=== PATIENT | female | born 1940 | race Caucasian/White ===

== ENCOUNTER 2023-12-30 19:38 | Inpatient (IN) | payer MEDICARE, SELFPAY ==
[2023-12-30] VITALS (10 sets, daily range): BP systolic 95–163; BP diastolic 41–64; BMI 21.3
[2023-12-30 14:20] LABS: % Basophils 0.5 % (0-2); % Eosinophils 0.8 % (0-6); % Immature Granulocytes 0.3 % (0-0.5); % Lymphocytes 19.5 % (20.5-51.1); % Monocytes 6.4 % (1.7-9.3); % Neutrophils 72.5 % (42.2-75.2); Absolute Basophils 0.1 10^3/uL (0-0.2); Absolute Eosinophils 0.1 10^3/uL (0-0.7); Absolute Lymphocytes 2.3 10^3/uL (1.2-3.4); Absolute Monocytes 0.7 10^3/uL (0.1-0.6); Absolute Neutrophils 8.4 10^3/uL (1.4-6.5); Hematocrit 35.1 % (37.0-47.0); Hemoglobin 11.8 g/dL (12.0-16.0); Mean Corp Hgb Conc. 33.6 g/dL (33.0-37.0); Mean Corpuscular Hgb 28.4 pg (27.0-31.0); Mean Corpuscular Volume 84.6 fL (81.0-99.0); Mean Platelet Volume 9.7 fL (7.4-10.4); Nucleated Red Blood Cells % 0 %; Platelet Count 335 10^3/uL (130-400); Red Blood Cell Count 4.15 10^6/uL (4.20-5.40); Red Cell Dist. Width 11.9 % (11.5-14.5); White Blood Cell Count 11.6 10^3/uL (4.8-10.8)
[2023-12-30 14:35] LABS: ALT (SGPT) 26 U/L (0-35); AST (SGOT) 28 U/L (14-36); Albumin 3.9 g/dl (3.5-5.0); Alkaline Phosphatase 119 U/L (38-126); Blood Urea Nitrogen 32 mg/dl (7-17); Calcium 9.1 mg/dl (8.4-10.2); Carbon Dioxide 24 mmol/L (22-30); Chloride 103 mmol/L (98-107); Estimated Creatinine Clearance 24 ml/min; Glucose 148 mg/dl (70-99); Lipase 111 U/L (23-300); Potassium 3.6 mmol/L (3.5-5.1); Sodium 134 mmol/L (135-145); Total Bilirubin 0.5 mg/dl (0.2-1.3); Total Protein 6.9 g/dl (6.3-8.2)
--- NOTE | 2023-12-30 14:44 | ED.GENMED ---
History of Present Illness
<Esther Mohr PA-C - Last Filed: 12/31/23 10:49>
General
Chief Complaint: Abdominal Symptoms
Source: patient
Exam Limitations: none
Time Seen by Provider: 12/30/23 14:42
Nursing documentation reviewed up to this point in time: agreed with
Travel History
Have you had any contact with someone who has COVID-19?: No
Do you have any symptoms of coronavirus? Fever > 100 degrees, chills, cough, shortness of breath, sore throat, loss of taste or smell, muscle aches, or headache?: No
History of Present Illness
History of Present Illness:
This is a 83-year-old female with past medical history of hypertension, hyperlipidemia presenting the emergency department today with nausea, vomiting, and diarrhea for the past 2 weeks. Stepdaughter and present in room who provided much of
the history. They state that she has been having the symptoms recently and also complaining of mild abdominal discomfort. She also has had coughing and upper respiratory symptoms. Patient went to urgent care last week where they noticed a mass on
the right side on the chest x-ray and advised patient to follow-up with a cloud automation tester. They discharged her with supportive care. Patient's daughter states that they did not go to follow-up on the x-ray because patient became more sick, and
today, she had so much vomiting that she felt so weak and they had to call the ambulance. Patient's daughter states that she also has been complaining of dizziness for the past few days, but she is had apparent issues with dizziness in the past.
Patient states that in the ambulance, she became super lethargic and since the ride over here, and she has not been very arousable. ER records report that patient was given 1 mg of Ativan and 4 mg of Zofran in the ambulance. Patient herself states
that she feels sick and has had nausea and vomiting but denies any belly pain at this time. Family denies fevers or chills.
Review of Systems
<Esther Mohr PA-C - Last Filed: 12/31/23 10:49>
Review of Systems
All Other Systems: ROS reviewed and negative except as documented in HPI and ROS
Phy Exam
<Esther Mohr PA-C - Last Filed: 12/31/23 10:49>
Physical Exam
Physical Exam:
Vitals: vital signs are stable
General: patient is lethargic, ill appearing
Skin: warm and dry, no rashes or lesions
Cardiac: regular rate and rhythm, no murmurs
Pulm: normal respiratory effort, no wheezes/rales/rhonchi
Abdomen: mild diffuse lower abdominal pain to palpation, no abdominal distension
Neuro: Patient difficult to arouse, when not speaking to patient, she falls fast asleep. Patient is oriented to person and place, cranial nerves are intact.
Course
<Esther Mohr PA-C - Last Filed: 12/31/23 10:49>
Orders/Labs/Results
Orders:
Orders
12/30/23 14:08
Electrocardiogram (*1) Urgent
Reason for Study: Vertigo / Dizzy
12/30/23 14:09
EKG- Treatment ONCE
12/30/23 14:12
Complete Blood Count/With Diff Urgent
Comprehensive Metabolic Panel Urgent
Lipase Urgent
12/30/23 Dinner
Regular
At Your Request: Full Participation
Does patient need a safe tray?: No
12/30/23 15:01
Add On- LAB Urgent
Tests Added?: lactic acid
12/30/23 15:02
Abdomen/Pelvis wo Contrast CT [CT Abd/pelvis Wo Iv Cont] Urgent
Comment:
Reason For Exam: nausea/vomiting, diffuse lower ab pain
12/30/23 15:04
Urinalysis Reflex To Culture Urgent
Date Specimen was Collected: 12/31/23
Time Specimen was Collected: 06:48
CR Chest - 2 Views Urgent
Comment:
Reason For Exam: cough, lethargy
12/30/23 15:06
CT Head W/o Iv Contrast Urgent
Comment:
Reason For Exam: altered mental status
12/30/23 16:54
Lactic Acid Urgent
Comment: COLLECT
12/30/23 18:38
Admit/Transfer Patient As Directed
Co-Sign Provider:
Level of Care: Inpatient admission
Assign to:: Medical/Surgical
Physician / Group: carlos
Diagnosis: viral gastroenteritis
Reason for Hospitalization: viral gastroenteritis
Expected length of stay greater than two midnights?: Yes
ELOS- Estimated Length of Stay in days: 2
I certify the patient meets the requirements for IP care: Yes
12/30/23 18:39
Code Status As Directed
Resuscitation Status: Full Code
12/30/23 18:40
CDIFF [C difficile Antigen & Toxins] Urgent
JENNIFER Source: Feces/Stool
Specimen Description:
Norovirus by PCR Urgent
JENNIFER Source: Feces/Stool
Specimen Description:
Stool Culture Urgent
JENNIFER Source: Feces/Stool
Specimen Description:
12/30/23 22:09
0.9% Sodium Chloride 1000 ml [Nss] 1,000 ml IV 100 mls/hr
Heparin 5,000 units SC Q12
Meclizine [Antivert] 25 mg PO Q8HPRN PRN
Ondansetron Injectable [Zofran] 4 mg IV Q6HPRN PRN
12/30/23 22:09
Activity As Directed
Activity Level: As Tolerated
Vital Signs As Directed
Frequency: Per unit guidelines
DX Deep Vein Thrombosis Video Routine
12/31/23 04:24
Complete Blood Count/With Diff IN AM
Comprehensive Metabolic Panel IN AM
12/31/23 08:00
Pantoprazole [Protonix] 40 mg PO DAILY
Rosuvastatin Calcium [Crestor] 10 mg PO DAILY
Abnormal Lab Results
12/30/23
14:12
WBC 11.6 H 10^3/uL
(4.8-10.8)
RBC 4.15 L 10^6/uL
(4.20-5.40)
Hgb 11.8 L g/dL
(12.0-16.0)
Hct 35.1 L %
(37.0-47.0)
Absolute Neuts (auto) 8.4 H 10^3/uL
(1.4-6.5)
Absolute Monos (auto) 0.7 H 10^3/uL
(0.1-0.6)
Lymphocytes % 19.5 L %
(20.5-51.1)
Sodium 134 L mmol/L
(135-145)
BUN 32 H mg/dl
(7-17)
Creatinine 1.4 H mg/dL
(0.6-1.0)
Glucose 148 H mg/dl
(70-99)
12/30/23 14:12
12/30/23 14:12
Vital Signs
Initial and Last Documented VS:
Initial Vital Signs
Temp Pulse Resp BP Pulse Ox
97.6 F 65 18 163/45 97
12/30/23 14:05 12/30/23 14:05 12/30/23 14:05 12/30/23 14:05 12/30/23 14:05
Last Documented Vital Signs
Temp Pulse Resp BP Pulse Ox
98.1 F 61 14 153/55 97
12/31/23 07:50 12/31/23 07:50 12/31/23 07:50 12/31/23 07:50 12/31/23 07:50
<Anibal Banuelos, DO - Last Filed: 12/30/23 18:00>
Orders/Labs/Results
Orders:
Orders
12/30/23 14:08
Electrocardiogram (*1) Urgent
Reason for Study: Vertigo / Dizzy
12/30/23 14:09
EKG- Treatment ONCE
12/30/23 14:12
Complete Blood Count/With Diff Urgent
Comprehensive Metabolic Panel Urgent
Lipase Urgent
12/30/23 Dinner
Regular
At Your Request: Full Participation
Does patient need a safe tray?: No
12/30/23 15:01
Add On- LAB Urgent
Tests Added?: lactic acid
12/30/23 15:02
Abdomen/Pelvis wo Contrast CT [CT Abd/pelvis Wo Iv Cont] Urgent
Comment:
Reason For Exam: nausea/vomiting, diffuse lower ab pain
12/30/23 15:04
Urinalysis Reflex To Culture Urgent
Date Specimen was Collected: 12/31/23
Time Specimen was Collected: 06:48
CR Chest - 2 Views Urgent
Comment:
Reason For Exam: cough, lethargy
12/30/23 15:06
CT Head W/o Iv Contrast Urgent
Comment:
Reason For Exam: altered mental status
12/30/23 16:54
Lactic Acid Urgent
Comment: COLLECT
12/30/23 18:38
Admit/Transfer Patient As Directed
Co-Sign Provider:
Level of Care: Inpatient admission
Assign to:: Medical/Surgical
Physician / Group: carlos
Diagnosis: viral gastroenteritis
Reason for Hospitalization: viral gastroenteritis
Expected length of stay greater than two midnights?: Yes
ELOS- Estimated Length of Stay in days: 2
I certify the patient meets the requirements for IP care: Yes
12/30/23 18:39
Code Status As Directed
Resuscitation Status: Full Code
12/30/23 18:40
CDIFF [C difficile Antigen & Toxins] Urgent
JENNIFER Source: Feces/Stool
Specimen Description:
Norovirus by PCR Urgent
JENNIFER Source: Feces/Stool
Specimen Description:
Stool Culture Urgent
JENNIFER Source: Feces/Stool
Specimen Description:
12/30/23 22:09
0.9% Sodium Chloride 1000 ml [Nss] 1,000 ml IV 100 mls/hr
Heparin 5,000 units SC Q12
Meclizine [Antivert] 25 mg PO Q8HPRN PRN
Ondansetron Injectable [Zofran] 4 mg IV Q6HPRN PRN
12/30/23 22:09
Activity As Directed
Activity Level: As Tolerated
Vital Signs As Directed
Frequency: Per unit guidelines
DX Deep Vein Thrombosis Video Routine
12/31/23 04:24
Complete Blood Count/With Diff IN AM
Comprehensive Metabolic Panel IN AM
12/31/23 08:00
Pantoprazole [Protonix] 40 mg PO DAILY
Rosuvastatin Calcium [Crestor] 10 mg PO DAILY
Abnormal Lab Results
12/30/23
14:12
WBC 11.6 H 10^3/uL
(4.8-10.8)
RBC 4.15 L 10^6/uL
(4.20-5.40)
Hgb 11.8 L g/dL
(12.0-16.0)
Hct 35.1 L %
(37.0-47.0)
Absolute Neuts (auto) 8.4 H 10^3/uL
(1.4-6.5)
Absolute Monos (auto) 0.7 H 10^3/uL
(0.1-0.6)
Lymphocytes % 19.5 L %
(20.5-51.1)
Sodium 134 L mmol/L
(135-145)
BUN 32 H mg/dl
(7-17)
Creatinine 1.4 H mg/dL
(0.6-1.0)
Glucose 148 H mg/dl
(70-99)
12/30/23 14:12
12/30/23 14:12
Vital Signs
Initial and Last Documented VS:
Initial Vital Signs
Temp Pulse Resp BP Pulse Ox
97.6 F 65 18 163/45 97
12/30/23 14:05 12/30/23 14:05 12/30/23 14:05 12/30/23 14:05 12/30/23 14:05
Last Documented Vital Signs
Temp Pulse Resp BP Pulse Ox
98.1 F 61 14 153/55 97
12/31/23 07:50 12/31/23 07:50 12/31/23 07:50 12/31/23 07:50 12/31/23 07:50
<Esther Mohr PA-C - Last Filed: 12/31/23 10:49>
MDM/Problems Addressed
Differential Diagnosis Includes:
ddx include gastroenteritis, diverticulitis, small bowel obstruction, pneumonia, peripheral vertigo
MDM/Problems Addressed:
dizziness
nausea/vomiting
diarrhea
Chronic conditions affecting care: HTN
Acute Exacerbation and/or Progression of Chronic Illness: HTN
<Esther Mohr PA-C - Last Filed: 12/31/23 10:49>
*Pulse Oximetry
Patient hypoxic: no
*Critical Care Note
Total Time (30-74mins, 75-104mins- exclusive of procedures): Not Applicable
Data Reviewed
Review of Other/Old Records Reveals: Records (No previous records in [facility] to review)
Source: patient
<Esther Mohr PA-C - Last Filed: 12/31/23 10:49>
Patient Management
Escalation/DeEscalation of care consider admission/obs:
83-year-old female with a past medical history of hypertension, hyperlipidemia presenting emergency department today with nausea, vomiting, and diarrhea for the past 2 weeks. Stepdaughter and present in room who provided much of the
history. They state that she has been having the symptoms recently and also complaining of mild abdominal discomfort. She also has had coughing and upper respiratory symptoms. On exam, she is oriented to person and place but she is extremely
lethargic and does not answer many questions, and quickly falls asleep when not discussing for. She also has diffuse mild abdominal tenderness palpation. She has no adventitious lung sounds, she is not in respiratory distress. Her CT scan of the
abdomen showed moderate diverticulosis but no diverticulitis this is well as a dilated common bile duct, however her LFTs and bilirubin within normal limits. On CBC, she has no leukocytosis. EMS did give her 1 mg of Ativan which is likely why she
was altered. This time, we nothing explain her persistent nausea and vomiting. Will admit her for further workup and management.
ED Attending Note
<Esther Mohr PA-C - Last Filed: 12/31/23 10:49>
-
Portions of this chart may have been created with voice recognition software.� Occasional wrong word or��sound alike� substitutions may have occurred due to the inherent limitations of voice recognition software.
<Anibal Banuelos DO - Last Filed: 12/30/23 18:00>
ED Attending Note
Patient seen and examined by attending physician: Yes
I performed a history and physical exam of patient and discussed management with resident, I reviewed resident's note and agree with documented findings and plan of care.: Yes
ED Attending Note:
I have reviewed and agree with patient treatment plan by Esther Mohr. My exam revealed 83-year-old female, drowsy, but alert and oriented. Mild lower abdominal tenderness, no rebound or guarding. Patient's lethargy likely from dehydration, as
well as Ativan given. Unclear cause of dizziness. Will admit to further evaluate acute kidney injury, dizziness.
Discharge Plan
Departure
Patient Disposition: Admit
Date of Disposition: 12/30/23
Time of Disposition: 18:09
Admit to: Med/Surg
Presentation/result/management discussed w/ accepting MD/DO: Hospitalist
Patient with high blood pressure during this ER visit?: Yes
Condition: Fair
Discharge Problem:
Altered mental status, Dizziness, MINH (acute kidney injury)
Interventions
Interventions:
*Risk Screen - Suicide Last Done: 12/30/23 14:09
*General Assessment Last Done: 12/30/23 14:09
*Neglect/Abuse Screening Last Done: 12/30/23 14:09
ED- Fall Risk Assessment Last Done: 12/30/23 22:05
*ED COVID-19 Vaccine History Last Done: 12/30/23 14:10
*Nursing Disposition Last Done: 12/30/23 22:05
VD-Clsmzi-Imgrtzncym Assessment Last Done: 12/30/23 14:09
Discharge Date and Time
Discharge Date/Time: 12/30/23 22:05
[2023-12-30 17:10] LABS: Lactic Acid 1.2 mmol/L (0.7-2.0)
--- NOTE | 2023-12-30 18:23 | PHANOTE ---
Addendum entered by Melissa Hernández 12/30/23 19:46:
Provider advised family to bring patients med bottles in. Looked through medication bottles and added source to home med list.
Original Note:
Med Rec Note:
Family states they do not know pt's medications at all bu 'EMS took a picture, and said the hospital will get that information'. Advised pt that we did not get that photo.
Home med list compiled from EMS face sheet, Dr Ware and [facility].
--- NOTE | 2023-12-30 18:41 | HPS.HSE ---
Family Physician
-
Family Physician: Chente Saeed
Chief Complaint
-
diarrhea and vomiting
History of Present Illness
83-year-old female with past medical history hypertension, hyperlipidemia, GERD, former alcohol use disorder presented to the emergency room with nausea and vomiting and diarrhea and abdominal discomfort for the past week. She also had dry cough
for the past week without shortness of breath or fevers or chills. She was started on antibiotic for URI. Stepdajavier providing history. She went to urgent care last week and they noted a mass in the right side of the chest x-ray advised patient
to follow-up with keg filler. Patient became more sick and today she is so much vomiting she felt weak and they had to call the ambulance. Patient has been having dizziness for the past few days. Patient became super lethargic and since she
has been less arousable after being given Ativan and Zofran in the ambulance for nausea.
She has been feeling very fatigued for the past month.
Medical History
Past Medical History
Past Medical History: Reports Other (hypertension, hyperlipidemia, GERD)
Past Surgical History: Reports None
Social History
Tobacco: Non-smoker
Alcohol: Former
Drug: None
Family History
Family History: Not pertinent
Allergies / Home Medications
Allergies reflects when Allergies were last updated in [employer].
Home Medications with original date entered in [employer]
Allergy/Medication List:
Home Medications
amlodipine 10 mg tablet 10 mg PO DAILY 12/30/23
bisoprolol fumarate 10 mg tablet 10 mg PO DAILY 12/30/23
losartan 50 mg-hydrochlorothiazide 12.5 mg tablet 1 tab PO DAILY 12/30/23
meclizine 25 mg tablet 25 mg PO Q8H PRN dizziness 12/30/23
omeprazole 40 mg capsule,delayed release 40 mg PO DAILY 12/30/23
rosuvastatin 20 mg tablet 20 mg PO DAILY 12/30/23
trazodone 100 mg tablet 100 mg PO HS sleep 12/30/23
Review of Systems
-
History Source: Patient
A 12 point ROS was completed and negative except as noted: Yes
Constitutional: Reports No Symptoms
EENT: Reports No Symptoms
Respiratory: Reports See HPI
Cardiac: Reports No Symptoms
Abdomen/GI: Reports See HPI
: Reports No Symptoms
Musculoskeletal: Reports No Symptoms
Skin: Reports No Symptoms
Neurological: Reports No Symptoms
Endocrine: Reports No Symptoms
Hematologic/Lymphatic: Reports No Symptoms
Psych: Reports No Symptoms
Physical Exam
Vital Signs
Vital Signs
Temp Pulse Resp BP Pulse Ox
97.6 F 54 12 110/47 95
12/30/23 14:05 12/30/23 17:45 12/30/23 17:45 12/30/23 17:00 12/30/23 17:30
Physical Exam
General: Well Developed, Well Nourished and No Apparent Distress
HEENT: NormoCephalic, Moist mucous membranes and Atraumatic
Respiratory: Clear
Cardiac: S1/S2 and Regular Rhythm; No Murmur or Rub
GI: Soft, Non Tender, Non Distended and Normal Bowel Sounds; No Organomegaly
Rectal: Deferred by Provider
Musculoskeletal: No Clubbing, No Cyanosis and No Edema
Skin: No Rash
Neuro: Nonfocal/grossly intact and Sedated
Laboratory Results
-
12/30/23 14:12
12/30/23 14:12
Laboratory Results
Lactic Acid 1.2 mmol/L (0.7-2.0) 12/30/23 16:54
Total Bilirubin 0.5 mg/dl (0.2-1.3) 12/30/23 14:12
AST 28 U/L (14-36) 12/30/23 14:12
ALT 26 U/L (0-35) 12/30/23 14:12
Alkaline Phosphatase 119 U/L (38-126) 12/30/23 14:12
Lipase 111 U/L (23-300) 12/30/23 14:12
Data Reviewed
-
Lab Data: Labs Reviewed by me
Old Records: Reviewed
Impression/Plan
-
IMPRESSION:
PLAN:
# Vomiting/diarrhea and cough suggestive of viral syndrome with gastroenteritis
-Leukocytosis
-Patient sleeping due to Ativan given in ambulance although was mentally alert prior
-CT abdomen pelvis shows large common bile duct without any other pathology
-CT head shows left postop preseptal masses versus enlarged extraocular muscles which can be seen in lymphoma/Graves' respectively
-Chest x-ray negative
-Check stool culture, norovirus, C. difficile
-IV fluids
-Hold amlodipine, losartan/hydrochlorothiazide, bisoprolol due to blood pressure 90s at time
-Hold trazodone and sedating medication given mental status
# Acute kidney injury
-Monitor with IV fluids
# Left posterior preseptal masses/enlarged extraocular muscles
-Suggestive of lymphoma/Graves' respectively
-Eventual MRI of orbits to better evaluate
# Supposed lung mass seen on recent urgent care chest x-ray
-Not visible on chest x-ray here
-Can follow-up with pulmonology
Essential hypertension
-Hold amlodipine, losartan/hydrochlorothiazide, bisoprolol due to blood pressure 90s at time
Hyperlipidemia
-Continue statin
GERD
-Continue omeprazole
Full code
DVT prophylaxis�heparin
Regular diet
[2023-12-30] MEDS: NSS 1000 IV (22:58)
[2023-12-30] MEDS: HEPARIN 5000 UNITS SC (22:58)
[2023-12-31 04:57] LABS: % Basophils 0.6 % (0-2); % Eosinophils 0.5 % (0-6); % Immature Granulocytes 0.3 % (0-0.5); % Lymphocytes 16.9 % (20.5-51.1); % Monocytes 5.8 % (1.7-9.3); % Neutrophils 75.9 % (42.2-75.2); Absolute Basophils 0.1 10^3/uL (0-0.2); Absolute Eosinophils 0.1 10^3/uL (0-0.7); Absolute Lymphocytes 1.8 10^3/uL (1.2-3.4); Absolute Monocytes 0.6 10^3/uL (0.1-0.6); Absolute Neutrophils 7.9 10^3/uL (1.4-6.5); Hematocrit 31.6 % (37.0-47.0); Hemoglobin 10.6 g/dL (12.0-16.0); Mean Corp Hgb Conc. 33.5 g/dL (33.0-37.0); Mean Corpuscular Hgb 28.1 pg (27.0-31.0); Mean Corpuscular Volume 83.8 fL (81.0-99.0); Mean Platelet Volume 9.8 fL (7.4-10.4); Nucleated Red Blood Cells % 0 %; Platelet Count 288 10^3/uL (130-400); Red Blood Cell Count 3.77 10^6/uL (4.20-5.40); Red Cell Dist. Width 12.1 % (11.5-14.5); White Blood Cell Count 10.4 10^3/uL (4.8-10.8)
[2023-12-31 05:18] VITALS: BMI 21.3
[2023-12-31 05:21] LABS: ALT (SGPT) 19 U/L (0-35); AST (SGOT) 21 U/L (14-36); Albumin 3.1 g/dl (3.5-5.0); Alkaline Phosphatase 94 U/L (38-126); Blood Urea Nitrogen 30 mg/dl (7-17); Calcium 9.1 mg/dl (8.4-10.2); Carbon Dioxide 25 mmol/L (22-30); Chloride 103 mmol/L (98-107); Estimated Creatinine Clearance 24 ml/min; Glucose 76 mg/dl (70-99); Potassium 3.9 mmol/L (3.5-5.1); Sodium 136 mmol/L (135-145); Total Bilirubin 0.5 mg/dl (0.2-1.3); Total Protein 6.1 g/dl (6.3-8.2)
[2023-12-31 07:32] LABS: Urine Albumin Trace (Neg - Trace); Urine Bilirubin Negative (Negative); Urine Character Clear (Clear); Urine Color Yellow; Urine Glucose Negative (Negative); Urine Ketone Trace (Negative); Urine Leukocyte Negative (Negative); Urine Nitrite Negative (Negative); Urine Occult Blood Negative (Negative); Urine Urobilinogen Negative (Neg - 1+)
[2023-12-31 07:50] VITALS: BP 153/55
--- NOTE | 2023-12-31 08:13 | W.PN.HOSP.TC ---
Today's Communication/Plan
-
Discharge today
Assessment / Plan
Assessment / Plan
HPI: 83-year-old female with past medical history hypertension, hyperlipidemia, GERD, former alcohol use disorder presented to the emergency room with nausea and vomiting and diarrhea and abdominal discomfort for the past week.� She also had dry
cough for the past week without shortness of breath or fevers or chills.� She was started on antibiotic for URI.� Stepdaughter providing history.� She went to urgent care last week and they noted a mass in the right side of the chest x-ray advised
patient to follow-up with hand touch up painter.� Patient became more sick and today she is so much vomiting she felt weak and they had to call the ambulance.� Patient has been having dizziness for the past few days.� Patient became super lethargic and
since she has been less arousable after being given Ativan and Zofran in the ambulance for nausea.
# Vomiting/diarrhea and cough suggestive of viral syndrome with gastroenteritis
CT abdomen pelvis shows large common bile duct without any other pathology
CT head shows left postop preseptal masses versus enlarged extraocular muscles which can be seen in lymphoma/Graves' respectively
Chest x-ray negative
Stool studies ordered, unable to send as she has not have any more bowel movement since admission
Vomiting and diarrhea resolved, she is tolerating her diet
Medically stable for discharge today, follow-up with PCP in 1 week
# URI
Supportive care
# Chronic kidney disease
Patient reports that she was told she has chronic kidney disease
Creatinine 1.4 today, unchanged from admission 1.4, despite IV fluids
I suspect this is her baseline
Recommend she avoid all [id number]-[id number] NSAIDs
# Left posterior preseptal masses/enlarged extraocular muscles
-Suggestive of lymphoma/Graves' respectively
-Informed patient and family that outpatient orbit MRI is recommended
# Supposed lung mass seen on recent urgent care chest x-ray
Not visible on chest x-ray here
#Essential hypertension
Blood pressure improved, okay to resume amlodipine and bisoprolol upon discharge
Recommend permanently discontinue losartan/hydrochlorothiazide
Hyperlipidemia
-Continue statin
GERD
-Continue omeprazole
Full code
DVT prophylaxis�SQ heparin
Regular diet
Physical Exam
General: No acute distress
HEENT: Normocephalic, Atraumatic, EOMI, MMM
Respiratory: Clear to Auscultation bilaterally
Cardiac: Normal S1/S2, Regular Rate and Rhythm
GI: Soft, Nontender, Nondistended, Normal Bowel Sounds
Extremities: No Clubbing, Cyanosis, or Edema
Neuro: Nonfocal/Grossly Intact
Psych: Calm, Cooperative
Derm: No Visible lesions
Anticipated Discharge: Today
Subjective/Interval History
-
Date of Service: December 31, 2023
Vomiting and diarrhea resolved. She is tolerating solids. She does complain of URI symptoms. No fever.
Objective Data
-
Labs:
Laboratory Results
12/31/23
04:24
WBC 10.4
Hgb 10.6 L
Hct 31.6 L
Plt Count 288
Sodium 136
Potassium 3.9
Chloride 103
Carbon Dioxide 25
BUN 30 H
Creatinine 1.4 H
Glucose 76
Calcium 9.1
Total Bilirubin 0.5
AST 21
ALT 19
Alkaline Phosphatase 94
Vital Signs:
Vital Signs
Temp Pulse Resp BP Pulse Ox
98.1 F 61 14 153/55 97
12/31/23 07:50 12/31/23 07:50 12/31/23 07:50 12/31/23 07:50 12/31/23 07:50
I&O
12/30/23 12/31/23 01/01/24
06:59 06:59 06:59
Intake Total 480 / 480
Balance 480 / 480
[2023-12-31] MEDS: PROTONIX 40 MG PO (08:23)
[2023-12-31] MEDS: HEPARIN 5000 UNITS SC (08:23)
[2023-12-31] MEDS: CRESTOR 10 MG PO (08:23)
[2023-12-31] MEDS: NSS 1000 IV (08:24)
--- NOTE | 2023-12-31 11:07 | CM ---
Chart reviewed. CM spoke with pt at bedside
Pt lives with her in an apartment with elevator access
Recently moved to area from [facility]
Independent, shops, cooks, driving
Denies DME and past HH/SNF - has received out pt PT in past
PCP - Dr Armand Saeed
Pharm - [facility]
Will have ride home at d/c
Plan - anticipate home - no needs
--- NOTE | 2023-12-31 16:58 | W.DCSUMMARY ---
Discharge Summary
Discharge Data
Date of Admission: 12/30/23
Date of Discharge: 12/31/23
-
Pending Results: No
Hospital Course
Discharge diagnosis:
Vomiting/diarrhea/cough suggestive of viral syndrome or gastroenteritis
Probable stage 4 chronic kidney disease
Left posterior preseptal masses/enlarged extraocular muscles seen on imaging
Recent abnormality seen at urgent care x-ray
Essential hypertension
Hyperlipidemia
Gastroesophageal reflux disease
CT abdomen and pelvis:
Large common bile duct. This can be within normal limits postcholecystectomy. Other etiologies such as a stone or stricture cannot be excluded. This would better be evaluated by MRCP examination if indicated clinically.
Tiny pericardial effusion versus pericardial thickening.
Prior cholecystectomy.
Severe diverticulosis. No evidence of acute diverticulitis.
Moderate residual oral contrast in the colon.
Severe atherosclerotic vascular disease.
Chest x-ray:
Frontal and lateral radiographs of the chest were obtained.
The cardiac silhouette and pulmonary vasculature are radiographically within normal limits.
There are no acute mediastinal abnormalities.
There are no acute pleural or parenchymal abnormalities.
Head CT:
No acute intracranial abnormality noted.
Left postseptal masses versus enlarged extraocular muscles as described above. These findings can be seen with lymphoma and Graves' disease respectively. This could further be evaluated by MR examination of the orbits if indicated clinically
Hospital course:
83-year-old female with past medical history hypertension, hyperlipidemia, GERD, and former alcohol use disorder presented to the emergency room with nausea, vomiting and diarrhea and abdominal discomfort for the past week.� She also had a dry cough
for the past week without shortness of breath, fevers or chills.� She was started on antibiotic for URI.
Chest x-ray was negative. Suspect she has a viral syndrome causing gastroenteritis as well as upper respiratory symptoms. She received supportive management with IV fluids.
Patient has a creatinine of 1.4. Despite hydration with IV fluids, her creatinine remained 1.4. She reports being told by her PCP that she has chronic kidney disease. I suspect that this may be her baseline.
By the following day, her vomiting and diarrhea resolved. She tolerated a diet. She continues to complain of chest congestion and cough. Recommend that she takes [id number] cough and cold medicine as needed.
Patient was informed that her head CT shows an abnormality, and that outpatient MRI of the orbits is recommended.
Patient was recently told that she had a right lung mass. Repeat chest x-ray here is negative for any acute abnormalities. This was relayed to the patient multiple times.
Patient is medically stable for discharge. She needs to follow-up with her primary care doctor 1 week.
Disposition: Home self-care
Discharge planning: Required 40 minutes
Discharge Plan
-
Patient Disposition: Home (Routine Discharge)
Discharge Diagnosis/Procedures: Gastroenteritis, upper respiratory infection, chronic kidney disease, hypertension
Condition: Good
Diet: Low Residue
Activity: As tolerated
Driving Restrictions: As prior to admission
Activity Restrictions/Additional Instructions:
Please drink plenty of fluids.
We recommend you stopping losartan�hydrochlorothiazide.
Avoid all [id number] NSAID medications, such as ibuprofen, naproxen, Aleve, Advil, Motrin.
These medications will worsen your kidney function.
You had a chest x-ray that was normal.
You had a head CT, which showed no acute intracranial abnormality.
Your head CT does show enlarged extraocular muscles.
We recommend you get an outpatient orbit MRI�this can be done with your primary care doctor.
Please establish care with a primary care doctor, and follow-up in 1 week.
Referrals:
Chente Saeed MD [Family Provider] - in one week
Prescriptions:
Continued
bisoprolol fumarate 10 mg tablet
10 mg PO DAILY
meclizine 25 mg tablet
25 mg PO Q8H PRN (Reason: dizziness)
amlodipine 10 mg tablet
10 mg PO DAILY
rosuvastatin 20 mg tablet
20 mg PO DAILY
trazodone 100 mg tablet
100 mg PO HS
docusate sodium [Colace] 100 mg Capsule
100 mg PO DAILY PRN (Reason: constipation)
Discontinued
losartan-hydrochlorothiazide 50-12.5 mg tablet
1 tab PO DAILY
Discharge Orders:
Discharge Patient (As Directed); Ordered 12/31/23
Ordered By: Shabbir Blake
Discharge Date and Time
Discharge Date/Time: 12/31/23 13:35
== END 2023-12-31 13:35 | disposition home or self-care (01) | DRG 392 ==
LOC: 2 NORTH 19:38
PROVIDERS: Physician Assistant; ADMITTING PHYSICIAN Hospitalist; ATTENDING PHYSICIAN Family Medicine; EMERGENCY PHYSICIAN Emergency Medicine; FAMILY PHYSICIAN Internal Medicine Geriatric Medicine
DX: A08.4 Viral intestinal infection, unspecified (principal); N17.9 Acute kidney failure, unspecified; N18.4 Chronic kidney disease, stage 4 (severe); I12.9 Hypertensive chronic kidney disease with stage 1 through stage 4 chronic kidney disease, or unspecified chronic kidney disease; N18.9 Chronic kidney disease, unspecified; E78.5 Hyperlipidemia, unspecified; K21.9 Gastro-esophageal reflux disease without esophagitis; J06.9 Acute upper respiratory infection, unspecified; K57.90 Diverticulosis of intestine, part unspecified, without perforation or abscess without bleeding
CPT/HCPCS: 70450; 71046; 74176; 80053; 81003; 83605; 83690; 85025; 93005; 99285

== ENCOUNTER → 2024-02-26 14:33 | Outpatient (REF) | payer MEDICARE, OTHER, SELFPAY ==
[2024-02-26 15:49] LABS: ALT (SGPT) 15 U/L (0-35); AST (SGOT) 26 U/L (14-36); Albumin 4.5 g/dl (3.5-5.0); Alkaline Phosphatase 96 U/L (38-126); Blood Urea Nitrogen 32 mg/dl (7-17); Calcium 10.1 mg/dl (8.4-10.2); Carbon Dioxide 28 mmol/L (22-30); Chloride 102 mmol/L (98-107); Glucose 105 mg/dl (70-99); Phosphorus 4.6 mg/dl (2.5-4.5); Potassium 4.5 mmol/L (3.5-5.1); Total Bilirubin 0.5 mg/dl (0.2-1.3); Total Protein 7.7 g/dl (6.3-8.2)
[2024-02-26 15:55] LABS: Sodium 137 mmol/L (135-145)
== END ==
LOC: REG 14:33
PROVIDERS: ATTENDING PHYSICIAN Nurse Practitioner Family
DX: I10 Essential (primary) hypertension (principal); N18.32 Chronic kidney disease, stage 3b; E78.2 Mixed hyperlipidemia
CPT/HCPCS: 36415; 80053; 80069

== ENCOUNTER → 2024-07-23 12:52 | Outpatient (REF) | payer MEDICARE, OTHER, SELFPAY | LOC: RAD 12:52 | PROVIDERS: ATTENDING PHYSICIAN Internal Medicine Geriatric Medicine | DX: E78.2 Mixed hyperlipidemia (principal); I10 Essential (primary) hypertension; K21.9 Gastro-esophageal reflux disease without esophagitis; R91.8 Other nonspecific abnormal finding of lung field; M85.80 Other specified disorders of bone density and structure, unspecified site; N18.9 Chronic kidney disease, unspecified; J06.9 Acute upper respiratory infection, unspecified; R01.1 Cardiac murmur, unspecified | CPT/HCPCS: 93880 ==

== ENCOUNTER → 2024-10-29 11:44 | Outpatient (REF) | payer MEDICARE, OTHER, SELFPAY | LOC: MRI 11:44 | PROVIDERS: ATTENDING PHYSICIAN Nurse Practitioner Primary Care | DX: H05.822 Myopathy of extraocular muscles, left orbit (principal); R42 Dizziness and giddiness | CPT/HCPCS: 70543; 70553; A9575 ==

== ENCOUNTER → 2024-12-01 13:13 | Outpatient (REF) | payer MEDICARE, OTHER, SELFPAY | LOC: RAD 13:13 | PROVIDERS: ATTENDING PHYSICIAN Nurse Practitioner Primary Care; FAMILY PHYSICIAN Internal Medicine Geriatric Medicine | DX: N18.32 Chronic kidney disease, stage 3b (principal) | CPT/HCPCS: 76775 ==

== ENCOUNTER 2025-07-15 22:30 | Inpatient (IN) | payer MEDICARE, OTHER, SELFPAY ==
[2025-07-15 19:19] VITALS: BP 159/62
[2025-07-15 19:44] LABS: Hematocrit 41.9 % (37.0-47.0); Hemoglobin 14.0 g/dL (12.0-16.0); Mean Corp Hgb Conc. 33.4 g/dL (33.0-37.0); Mean Corpuscular Volume 85.3 fL (81.0-99.0); Nucleated Red Blood Cells % 0 %; Platelet Count 233 10^3/uL (130-400); Red Cell Dist. Width 12.4 % (11.5-14.5)
[2025-07-15 19:58] LABS: ALT (SGPT) 17 U/L (0-35); AST (SGOT) 25 U/L (14-36); Albumin 4.6 g/dl (3.5-5.0); Alkaline Phosphatase 96 U/L (38-126); Blood Urea Nitrogen 26 mg/dl (7-17); Calcium 9.7 mg/dl (8.4-10.2); Carbon Dioxide 26 mmol/L (22-30); Chloride 100 mmol/L (98-107); Glucose 142 mg/dl (70-99); Potassium 4.2 mmol/L (3.5-5.1); Sodium 134 mmol/L (135-145); Total Protein 7.5 g/dl (6.3-8.2); eGFR 40.80
[2025-07-15 20:03] LABS: COVID-19 Antigen Negative (Negative)
[2025-07-15 21:02] VITALS: BMI 23.2
--- NOTE | 2025-07-15 21:31 | ED.GENMED ---
History of Present Illness
General
Chief Complaint: Fever
Source: patient
Time Seen by Provider: 07/15/25 20:40
History of Present Illness
History of Present Illness:
85-year-old female presenting to the ER for evaluation of fatigue, fevers, chills and rigors over the last few days, today symptoms worsen accompanied with a mild nonproductive cough. Patient states no known sick contacts, recent travel or recent
antibiotics. She did not take anything for her symptoms prior to arrival. She denies any urinary symptoms, abdominal pain, chest pain, shortness of breath, nausea or vomiting. Social history noncontributory. No other concerns at present.
Patient did note to me when I entered the room that she was feeling much better and wished to go home. Upon telling her her lab results from triage she was amenable to further workup.
Past History
Past History
ED Past Medical History: HTN and Hypercholesterolemia
ED Past Surgical History: Appendectomy and Tonsilectomy
Social History
Tobacco: Non-smoker
Alcohol: None
Drug: None
Personal:
Living: with family
Review of Systems
Review of Systems
All Other Systems: ROS reviewed and negative except as documented in HPI and ROS
Phy Exam
Physical Exam
Physical Exam:
GENERAL: Alert , in no apparent distress
HEAD: Normocephalic atraumatic
EYE: conjunctiva clear
NECK: Supple
ENT: o/p clr, mmm.
CARDIAC: Regular rate and rhythm, faint systolic murmur noted at the left sternal border which patient states she was told about recently
LUNGS: Clear breath sounds bilaterally, no acute respiratory distress, no wheezes/rales/rhonchi
NEUROLOGICAL: Alert and oriented
SKIN: Hot to the touch and dry, skin intact.
MUSCULOSKELETAL: well perfused.
PSYCH: Normal and appropriate interaction.
Scores
Heart Failure Risk
Heart Failure Risk Score: Not Applicable
Heart Score for Chest Pain Patients
STEMI patient?: Not applicable
Withdrawal Assessment of Alcohol
Withdrawal Assessment Completed?: Not applicable
Course
Orders/Labs/Results
Orders:
Orders
07/15/25 19:34
COVID-19 Antigen Urgent
Source: Nasal Swab
Complete Blood Count/With Diff Urgent
Comprehensive Metabolic Panel Urgent
Lactic Acid Q4H
Comment: ON ICE, CANCEL 2ND ORDER IF FIRST LACTIC ACID LEVEL <2
Blood Culture Q20M
JENNIFER Source: Blood/Venous
Specimen Description:
Comment: Urgent from separate sites. If patient screens positive for possible sepsis
07/15/25 20:45
CR Chest - 2 Views Urgent
Comment:
Reason For Exam: fever
07/15/25 20:58
Urinalysis Reflex To Culture Urgent
Date Specimen was Collected: 07/15/25
Time Specimen was Collected: 20:57
Urine Microscopic Reflex Cult Urgent
Urine Culture Urgent
JENNIFER Source: U
Specimen Description:
Date Specimen was Collected: 07/15/25
Time Specimen was Collected: 20:57
07/15/25 21:44
0.9% Sodium Chloride 1000 ml [Nss] 1,800 ml IV NOW STA
Cefepime HCl [Maxipime] 1,000 mg IV NOW STA
07/15/25 21:54
Lactic Acid Q4H
Comment: ON ICE, CANCEL 2ND ORDER IF FIRST LACTIC ACID LEVEL <2
Blood Culture Q20M
JENNIFER Source: Blood/Venous
Specimen Description:
Comment: Urgent from separate sites. If patient screens positive for possible sepsis
07/15/25 22:07
Admit/Transfer Patient As Directed
Co-Sign Provider:
Level of Care: Inpatient admission
Assign to:: Medical/Surgical
Physician / Group: tania dickson
Diagnosis: sepsis 2/2 uti,RUL pulm nodule
Reason for Hospitalization: sepsis 2/2 uti,RUL pulm nodule
Expected length of stay greater than two midnights?: Yes
ELOS- Estimated Length of Stay in days: 4
I certify the patient meets the requirements for IP care: Yes
Code Status As Directed
Resuscitation Status: Full Code
07/15/25 22:09
PRN Pain Medication Management As Directed
May give lesser potent ordered pain med per pt: Yes
preference::
Protocol:: Medication orders for pain may be administered in a
manner that supports deferring to patient preference
when the pt is:
- Requesting an ordered lesser potent pain medication.
Least to most potent pain medications are defined
as: acetaminophen < NSAID < tramadol < opioids
(morphine, oxycodone, hydromorphone).
- Requesting a lesser dose of the same medication IF
ORDERED.
- Requesting a less intrusive route of administration
if both routes are prescribed by the provider (PO <
IV).
07/15/25 22:23
CT Abd/pelvis Wo Iv Cont Urgent
Comment:
Reason For Exam: uti sepsis sup pyelo
Abnormal Lab Results
07/15/25 07/15/25
19:34 20:58
WBC 22.1 H 10^3/uL
(4.8-10.8)
Abs Immat Gran (auto) 0.1 H 10^3/uL
(0-0.05)
Absolute Neuts (auto) 19.7 H 10^3/uL
(1.4-6.5)
Absolute Monos (auto) 0.9 H 10^3/uL
(0.1-0.6)
Neutrophils % 89.1 H %
(42.2-75.2)
Lymphocytes % 5.7 L %
(20.5-51.1)
Sodium 134 L mmol/L
(135-145)
BUN 26 H mg/dl
(7-17)
Creatinine 1.3 H mg/dL
(0.6-1.0)
Glucose 142 H mg/dl
(70-99)
Ur Occult Blood Reflex 3+ A
(Negative)
Leukocyte Esterase Rfl 3+ A
(Negative)
Urine RBC 40-50 A /HPF
(0-2)
Urine WBC (Reflex) 60-70 A /HPF
(0-5)
Urine Bacteria (Reflex) Moderate A
(Negative)
Urine Albumin (Reflex) 3+ A
(Neg - Trace)
07/15/25 19:34
07/15/25 19:34
Vital Signs
Initial and Last Documented VS:
Initial Vital Signs
Temp Pulse Resp BP Pulse Ox
101.2 F H 87 18 159/62 97
07/15/25 19:19 07/15/25 19:19 07/15/25 19:19 07/15/25 19:19 07/15/25 19:19
Last Documented Vital Signs
Temp Pulse Resp BP Pulse Ox
101.2 F H 80 19 157/57 97
07/15/25 19:19 07/15/25 22:30 07/15/25 22:30 07/15/25 22:02 07/15/25 22:15
MDM/Problems Addressed
Differential Diagnosis Includes:
COVID/flu or other viral etiology
Pneumonia
Urinary tract infection
Sepsis/bacteremia
No risk factors for endocarditis although patient did have a cardiac murmur noted on exam however this is reportedly known and not new
MDM/Problems Addressed:
85-year-old female presented to the ER with 3 days of fevers and what she describes as chills/rigors. Found to be febrile on arrival at 101.2. Labs initiated on arrival do show a leukocytosis of 22,000 with a leftward shift. Stable mild chronic
kidney disease. Normal lactic acid. Will add on cultures, chest x-ray, urinalysis. Disposition pending
Chronic conditions affecting care: Kidney disease
*Pulse Oximetry
SaO2: 97
Oxygen Mode of Delivery: Room air
Patient hypoxic: no
*Critical Care Note
Total Time (30-74mins, 75-104mins- exclusive of procedures): Not Applicable
Data Reviewed
Review of Other/Old Records Reveals: Labs
Patient Management
Discussion with other providers: Hospitalist
Escalation/DeEscalation of care consider admission/obs:
Patient's urinalysis with 3+ leukocytes and 60-70 WBCs suspicious for urinary tract infection. Given her fever and reports of chills/rigors will plan for admission for IV antibiotics and close monitoring. Hospitalist team is aware and accepts
patient for continued evaluation and treatment.
ED Attending Note
-
Portions of this chart may have been created with voice recognition software.� Occasional wrong word or��sound alike� substitutions may have occurred due to the inherent limitations of voice recognition software.
Discharge Plan
Departure
Patient Disposition: Admit
Date of Disposition: 07/15/25
Time of Disposition: 21:58
Presentation/result/management discussed w/ accepting MD/DO: Hospitalist
Discharge Problem:
Urinary tract infection
Interventions
Interventions:
*Risk Screen - Suicide Last Done: 07/15/25 19:19
*General Assessment Last Done: 07/15/25 21:02
*ED- Fall Risk Assessment Last Done: 07/15/25 21:02
*ED COVID-19 Vaccine History Last Done: 07/15/25 21:02
ED- Neurological Assessment Last Done: 07/15/25 21:02
ED-Skin Assessment Last Done: 07/15/25 21:02
[2025-07-15 21:32] LABS: Urine Character Slightly Cloudy (Clear)
[2025-07-15 21:41] LABS: Urine Red Blood Cell 40-50 /HPF (0-2); Urine Squamous Cell 0-2 /LPF (Few); Urine White Cell 60-70 /HPF (0-5)
[2025-07-15 22:02] VITALS: BP 157/57
[2025-07-15] MEDS: MAXIPIME 1000 MG IV (22:03)
[2025-07-15] MEDS: NSS 1800 ML IV (22:04)
--- NOTE | 2025-07-15 22:22 | HPS.HSE ---
Family Physician
-
Family Physician: Yeny Amaya
Chief Complaint
-
Fever and chills
History of Present Illness
Pleasant 85-year-old female with history of hypertension, dyslipidemia insomnia presented to the hospital complaining of few days of subjective fever, chill, generalized body ache and poor appetite with increased urinary frequency but no dysuria or
urgency, complaining of the flank pain bilaterally.
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
Workup in the ER concerning for sepsis likely secondary to pyelonephritis. Also chest x-ray showed approximate 2.8 cm right upper lobe pulmonary nodule slightly increased in size from prior study.
In the ER given Maxipime
Medical History
Past Medical History
Past Medical History: Reports Other
Additional Past Medical History:
Past medical history:
Hypertension
Polio during childhood
Carotid arthrosclerosis
Dyslipidemia
GERD
Osteopenia
Chronic kidney disease
Surgical history:
Right carotid endarterectomy
Appendectomy
Tonsillectomy
Right knee replacement
Removal of cyst from the liver
Social history:
Ex-smoker no alcohol user, no alcohol or smoking for many many years and denies any drug, she is independent lives at home with her .
Family history: Reviewed and noncontributory
Past Surgical History: Reports Other
Social History
Unable to obtain full social history at this time due to: Other
Family History
Family History: Other
Allergies / Home Medications
Allergies reflects when Allergies were last updated in [facility].
Home Medications with original date entered in [facility]
Allergy/Medication List:
Allergies
Allergy/AdvReac Type Severity Reaction Status Date / Time
No Known Allergies Allergy Verified 07/15/25 19:19
Home Medications
amlodipine 10 mg tablet 10 mg PO DAILY Blood Pressure 12/30/23
bisoprolol fumarate 10 mg tablet 10 mg PO DAILY Blood Pressure 12/30/23
rosuvastatin 20 mg tablet 20 mg PO DAILY High Cholesterol 12/30/23
trazodone 100 mg tablet 100 mg PO HS sleep 12/30/23
Review of Systems
-
A 12 point ROS was completed and negative except as noted: Yes
Physical Exam
Vital Signs
Vital Signs
Temp Pulse Resp BP Pulse Ox
101.2 F H 87 18 159/62 97
07/15/25 19:19 07/15/25 19:19 07/15/25 19:19 07/15/25 19:19 07/15/25 21:36
Physical exam:
General: Awake, alert and oriented x3, not in distress and holds appropriate conversation.
HEENT: No active discharge, ecchymosis or bruising, moist lips, tongue and mucous membrane.
Eyes: No discharge or red conjunctiva, no nystagmus, pupils are reactive and equal
Neck:Supple, no JVD no bruit no goiter.
Respiratory: Normal AP contour and diameter, normal chest wall movement, normal respiratory effort, no respiratory distress,
Lungs: Good air entry bilaterally, no wheezing or rhonchi, no rales or crackles
Heart: S1, S2 regular, normal rate, no added sound.
Gastrointestinal: Positive bowel sounds, soft, nontender, no guarding or rigidity or organomegaly
Musculoskeletal: , no chest wall abnormality or tenderness. All joints and extremities have good range of motion, no muscle tenderness or any joint swelling or tenderness.
Extremities: No pitting edema, good peripheral pulses, good range of motion
Skin: Warm and dry, no ulceration, normal color.
Neurological: Awake, alert and oriented x3, no facial droop, speech clear and comprehensive, good muscle tone,
Psychiatric: Normal mood, normal thought and judgment, normal affect,
Physical Exam
General: Other
Laboratory Results
-
07/15/25 19:34
07/15/25 19:34
Laboratory Results
Lactic Acid 1.1 mmol/L (0.7-2.0) 07/15/25 21:54
Total Bilirubin 0.8 mg/dl (0.2-1.3) 07/15/25 19:34
AST 25 U/L (14-36) 07/15/25 19:34
ALT 17 U/L (0-35) 07/15/25 19:34
Alkaline Phosphatase 96 U/L (38-126) 07/15/25 19:34
Chest x-ray: Approximate 2.8 cm right upper lobe pulmonary nodule slightly increased in size from prior study. Malignancy is the diagnosis of exclusion.. If able to be obtained, Chest CT with intravenous contrast recommended for more complete
evaluation.
No focal parenchymal opacification to suggest pneumonia.
Data Reviewed
-
Diagnostic Radiology: Image Personally Visualized and interpreted and Discussed with Patient
Lab Data: Labs Reviewed by me and Discussed with Patient
Old Records: Reviewed
Impression/Plan
-
IMPRESSION:
85-year-old female presented with a fever and chills and increased urinary frequency, workup currently concerning for acute sepsis was likely secondary to urinary tract infection and pyelonephritis.
Acute sepsis:
- With leukocytosis white cell count more than 20, temperature more than 101
- Blood and urine culture collected and pending
- IV Rocephin can be discontinued pending culture and sensitivity
- No prior urine culture
- IV fluid
- Monitor vital sign closely
- Tylenol as needed for fever and mild pain
UTI/pyelonephritis:
- Manage as above
Chronic kidney disease:
- Baseline creatinine 1.3-1.4, stable
- Avoid nephrotoxin
Hypertension:
- Continue amlodipine as she says she takes 5 mg and monitor vital sign
Right upper lobe pulmonary nodule:
- Patient says she is aware and she has been following up with the primary care physician and she is scheduled to have a CT of chest in 30 July and we advised to make sure she has done and follow-up with the primary care physician.
All discussed with the patient in detail and expressed understanding of the question answered
[2025-07-15 23:12] VITALS: BP 152/68
[2025-07-15 23:20] VITALS: BP 113/79; BMI 24.5
--- NOTE | 2025-07-15 23:30 | PTCARENOTE ---
Pt arrived to unit from ED via stretcher. Ambulated to bed from stretcher. A&Ox3. Oriented to unit. Bed in lowest position. Call light within reach. Plan of care ongoing.
[2025-07-15] MEDS: NSS 1000 IV (23:57)
[2025-07-15] MEDS: DESYREL 100 MG PO (23:58)
[2025-07-15] MEDS: STERILE WATER FOR INJECTION 10 ML IV (23:58)
[2025-07-15] MEDS: ROCEPHIN 1000 MG IV (23:58)
[2025-07-16 07:00] VITALS: BP 164/65
[2025-07-16 07:14] LABS: ALT (SGPT) 13 U/L (0-35); AST (SGOT) 17 U/L (14-36); Albumin 3.4 g/dl (3.5-5.0); Alkaline Phosphatase 69 U/L (38-126); Blood Urea Nitrogen 21 mg/dl (7-17); Calcium 8.9 mg/dl (8.4-10.2); Carbon Dioxide 25 mmol/L (22-30); Chloride 106 mmol/L (98-107); Estimated Creatinine Clearance 27 ml/min; Glucose 101 mg/dl (70-99); Potassium 4.0 mmol/L (3.5-5.1); Sodium 135 mmol/L (135-145); Total Protein 6.0 g/dl (6.3-8.2); eGFR 44.91
[2025-07-16 07:43] LABS: Hematocrit 37.2 % (37.0-47.0); Hemoglobin 12.2 g/dL (12.0-16.0); Mean Corp Hgb Conc. 32.8 g/dL (33.0-37.0); Mean Corpuscular Volume 86.5 fL (81.0-99.0); Nucleated Red Blood Cells % 0 %; Platelet Count 185 10^3/uL (130-400); Red Cell Dist. Width 12.6 % (11.5-14.5)
[2025-07-16] MEDS: CRESTOR 20 MG PO (08:47)
[2025-07-16] MEDS: NORVASC 10 MG PO (08:47)
[2025-07-16] MEDS: HEPARIN 5000 UNITS SC ×2 (08:47→21:49)
[2025-07-16] MEDS: ZEBETA 10 MG PO (10:52)
--- NOTE | 2025-07-16 13:11 | PTCARENOTE ---
patient reports urinary frequency improved. tolerating diet, transferring to chair/BR with supervision, gait steady, just needs occasional help with IV pole. vss, will continue to monitor.
[2025-07-16] MEDS: TYLENOL 650 MG PO (13:58)
[2025-07-16 14:10] VITALS: BP 146/55; PULSE 74; O2SAT 99
[2025-07-16 15:14] VITALS: BP 111/48
--- NOTE | 2025-07-16 16:21 | W.PN.HOSP.TC ---
Today's Communication/Plan
-
IV antibiotics pending cultures
Assessment / Plan
Assessment / Plan
85-year-old female presented with a fever and chills and increased urinary frequency, workup currently concerning for acute sepsis was likely secondary to urinary tract infection and pyelonephritis.
UTI with concern for sepsis.
Presenting with persistent chills and rigors, fever and elevated white count.
Improved since admission with trending down fever and leukocytosis.
IV Rocephin pending urine and blood cultures.
IV fluids.
CKD stage IIIa with baseline creatinine 1.3�1.4 stable
Hypertension
Continue amlodipine, bisoprolol
Hold losartan monitor renal function and avoid hypotension
Right upper lobe pulmonary nodule:
- Patient says she is aware and she has been following up with the primary care physician and she is scheduled to have a CT of chest in 30 July and we advised to make sure she has done and follow-up with the primary care physician.
Anticipated Discharge: 24 - 48 hours
Subjective/Interval History
-
Date of Service: July 16, 2025
Objective Data
-
Labs:
Laboratory Results
07/16/25
06:18
WBC 17.7 H
Hgb 12.2
Hct 37.2
Plt Count 185 D
Sodium 135
Potassium 4.0
Chloride 106
Carbon Dioxide 25
BUN 21 H
Creatinine 1.2 H
Glucose 101 H
Calcium 8.9
Total Bilirubin 0.8
AST 17
ALT 13
Alkaline Phosphatase 69
Vital Signs:
Vital Signs
Temp Pulse Resp BP Pulse Ox
98.1 F 71 17 111/48 96
07/16/25 15:14 07/16/25 15:14 07/16/25 15:14 07/16/25 15:14 07/16/25 15:14
I&O
07/15/25 07/16/25 07/17/25
06:59 06:59 06:59
Intake Total 480 / 480
Balance 480 / 480
Physical Exam
-
General: Well Developed and No Apparent Distress
HEENT: Normocephalic, Atraumatic and Moist Mucous Membranes
Respiratory: Clear to Auscultation
Cardiac: Regular Rhythm and S1/S2; Negative Murmur, Rub or Gallop
GI: Soft, Nontender, Nondistended and Normal Bowel Sounds; Negative Organomegaly
Rectal: Deferred by Provider
Musculoskeletal: No Clubbing, No Cyanosis and No Edema
Skin: Negative Rash
Neuro: Nonfocal/Grossly Intact
[2025-07-16] MEDS: NSS IV (17:00)
--- NOTE | 2025-07-16 17:51 | CM ---
Patient seen at bedside on . Patient stated that she lives with her in an apartment with elevator and no other DME. Patient PCP is Dr. Jean and she uses the [facility] on [facility]. Patient stated that she has no needs
at this time. CM will continue to follow for discharge planning needs.
Plan; home with no needs vs home with VN
--- NOTE | 2025-07-16 17:55 | PTCARENOTE ---
at 1358, patient medicated with PRN Tylenol for frontal headache with good relief, will continue to monitor.
[2025-07-16] MEDS: DESYREL 100 MG PO (21:49)
[2025-07-16 23:00] VITALS: BP 149/63
[2025-07-17] MEDS: STERILE WATER FOR INJECTION 10 ML IV (02:59)
[2025-07-17] MEDS: ROCEPHIN 1000 MG IV (02:59)
[2025-07-17 07:08] LABS: Hematocrit 34.6 % (37.0-47.0); Hemoglobin 11.5 g/dL (12.0-16.0); Mean Corp Hgb Conc. 33.2 g/dL (33.0-37.0); Mean Corpuscular Volume 86.7 fL (81.0-99.0); Nucleated Red Blood Cells % 0 %; Platelet Count 176 10^3/uL (130-400); Red Cell Dist. Width 12.6 % (11.5-14.5)
[2025-07-17 07:29] VITALS: BP 150/64
[2025-07-17 07:31] LABS: ALT (SGPT) 12 U/L (0-35); AST (SGOT) 20 U/L (14-36); Albumin 3.2 g/dl (3.5-5.0); Alkaline Phosphatase 77 U/L (38-126); Blood Urea Nitrogen 19 mg/dl (7-17); Calcium 8.9 mg/dl (8.4-10.2); Carbon Dioxide 23 mmol/L (22-30); Chloride 109 mmol/L (98-107); Estimated Creatinine Clearance 32 ml/min; Glucose 93 mg/dl (70-99); Potassium 3.9 mmol/L (3.5-5.1); Sodium 137 mmol/L (135-145); Total Protein 5.8 g/dl (6.3-8.2); eGFR 55.90
[2025-07-17] MEDS: HEPARIN 5000 UNITS SC ×2 (08:17→20:55)
[2025-07-17] MEDS: ZEBETA 10 MG PO (08:19)
[2025-07-17] MEDS: CRESTOR 20 MG PO (08:20)
[2025-07-17] MEDS: NORVASC 10 MG PO (08:20)
--- NOTE | 2025-07-17 10:22 | W.PN.HOSP.TC ---
Today's Communication/Plan
-
cont rocephin
anticipate d/c tomorrow
Assessment / Plan
Assessment / Plan
85-year-old female presented with a fever and chills and increased urinary frequency, workup currently concerning for acute sepsis was likely secondary to urinary tract infection and pyelonephritis.
sepsis (POA)--due to UTI with concern for pyelonephritis--blood cultures neg--urine culture pending--need ID and sensi's for urine culture--cont rocephin
CKD stage IIIa with baseline creatinine 1.3�1.4 stable--improved
Essential Hypertension--Continue amlodipine, bisoprolol--Hold losartan monitor renal function and avoid hypotension
Right upper lobe pulmonary nodule- Patient says she is aware and she has been following up with the primary care physician and she is scheduled to have a CT of chest on Jul 30--we advised to make sure she has done and follow-up with the primary
care physician.
Anticipated Discharge: Within 24 hours
Subjective/Interval History
-
Date of Service: July 17, 2025
pt feels better--asking about going home
Objective Data
-
Labs:
Laboratory Results
07/17/25
06:26
WBC 15.4 H
Hgb 11.5 L
Hct 34.6 L
Plt Count 176
Sodium 137
Potassium 3.9
Chloride 109 H
Carbon Dioxide 23
BUN 19 H
Creatinine 1.0
Glucose 93
Calcium 8.9
Total Bilirubin 0.5
AST 20
ALT 12
Alkaline Phosphatase 77
Vital Signs:
max temp for 24 hours
07/16/25
23:00
Temp 98.7 F
Vital Signs
Temp Pulse Resp BP Pulse Ox
99.5 F 83 17 150/64 97
07/17/25 07:29 07/17/25 08:20 07/17/25 07:29 07/17/25 08:20 07/17/25 08:10
I&O
07/16/25 07/17/25 07/18/25
06:59 06:59 06:59
Intake Total 480 / 480 1620 / 1620
Balance 480 / 480 1620 / 1620
Review of Systems
-
All other systems: Reviewed and negative
Physical Exam
-
General: Well Developed, Well Nourished and No Apparent Distress
HEENT: Normocephalic and Atraumatic
Respiratory: Clear to Auscultation; Negative Wheezes or Rhonchi
Cardiac: Regular Rhythm and S1/S2; Negative Murmur
GI: Soft, Nontender, Nondistended and Normal Bowel Sounds
Musculoskeletal: No Clubbing, No Cyanosis and No Edema
Skin: Warm
Neuro: Awake
Psych: Calm
[2025-07-17] MEDS: MIRALAX 17 GRAMS PO (11:04)
[2025-07-17] MEDS: AUGMENTIN 875 MG/125 MG 1 TABLET PO ×2 (13:40→20:53)
--- NOTE | 2025-07-17 14:44 | CM ---
Patient seen at bedside
tentative dc tomorrow per hospitalist note
PT rec home health - Patient declined
IMM explained & signed. placed in chart
PLAN: home, no needs, declined Home Health
& cousin to transport
[2025-07-17 15:20] VITALS: BP 144/59
[2025-07-17] MEDS: DESYREL 100 MG PO (20:57)
[2025-07-17 23:12] VITALS: BP 141/58
[2025-07-18 06:37] LABS: Hematocrit 36.6 % (37.0-47.0); Hemoglobin 12.2 g/dL (12.0-16.0); Mean Corp Hgb Conc. 33.3 g/dL (33.0-37.0); Mean Corpuscular Volume 87.4 fL (81.0-99.0); Nucleated Red Blood Cells % 0 %; Platelet Count 194 10^3/uL (130-400); Red Cell Dist. Width 12.5 % (11.5-14.5)
[2025-07-18 07:00] LABS: ALT (SGPT) 13 U/L (0-35); AST (SGOT) 20 U/L (14-36); Albumin 3.4 g/dl (3.5-5.0); Alkaline Phosphatase 82 U/L (38-126); Blood Urea Nitrogen 20 mg/dl (7-17); Calcium 9.2 mg/dl (8.4-10.2); Carbon Dioxide 27 mmol/L (22-30); Chloride 107 mmol/L (98-107); Estimated Creatinine Clearance 29 ml/min; Glucose 113 mg/dl (70-99); Potassium 4.5 mmol/L (3.5-5.1); Sodium 138 mmol/L (135-145); Total Protein 6.1 g/dl (6.3-8.2); eGFR 49.86
[2025-07-18 07:20] VITALS: BP 139/59
[2025-07-18] MEDS: NORVASC 10 MG PO (08:15)
[2025-07-18] MEDS: HEPARIN 5000 UNITS SC (08:15)
[2025-07-18] MEDS: CRESTOR 20 MG PO (08:15)
[2025-07-18] MEDS: ZEBETA 10 MG PO (08:15)
[2025-07-18] MEDS: AUGMENTIN 875 MG/125 MG 1 TABLET PO (08:15)
[2025-07-18] MEDS: MIRALAX 17 GRAMS PO (08:16)
--- NOTE | 2025-07-18 12:50 | W.PN.HOSP.TC ---
Today's Communication/Plan
-
d/c
Assessment / Plan
Assessment / Plan
85-year-old female presented with a fever and chills and increased urinary frequency, workup currently concerning for acute sepsis was likely secondary to urinary tract infection and pyelonephritis.
Enterococcus sepsis (POA)--due to UTI with concern for pyelonephritis--blood cultures neg--rocephin changed to augmentin--was going to switch to levoquin and got EKG (QT fine) but spoke with pharmacy and will keep on augmentin at d/c
CKD stage IIIa with baseline creatinine 1.3�1.4 stable--improved
Essential Hypertension--Continue amlodipine, bisoprolol--restart losartan
Right upper lobe pulmonary nodule--Dr. King indicated that Patient says she is aware and she has been following up with the primary care physician and she is scheduled to have a CT of chest on Jul 30--we advised to make sure she has done and
follow-up with the primary care physician.
DVT proph
code status-- full code
Anticipated Discharge: Today
Subjective/Interval History
-
Date of Service: July 18, 2025
pt ready for d/c
Objective Data
-
Labs:
Laboratory Results
07/18/25
06:25
WBC 10.8
Hgb 12.2
Hct 36.6 L
Plt Count 194
Sodium 138
Potassium 4.5
Chloride 107
Carbon Dioxide 27
BUN 20 H
Creatinine 1.1 H
Glucose 113 H
Calcium 9.2
Total Bilirubin 0.6
AST 20
ALT 13
Alkaline Phosphatase 82
Vital Signs:
max temp for 24 hours
07/17/25
23:12
Temp 99.7 F
Vital Signs
Temp Pulse Resp BP Pulse Ox
98.4 F 73 16 139/59 96
07/18/25 07:20 07/18/25 07:20 07/18/25 07:20 07/18/25 07:20 07/18/25 08:44
I&O
07/17/25 07/18/25 07/19/25
06:59 06:59 06:59
Intake Total 1620 / 1620 780 / 780 118 / 118
Balance 1620 / 1620 780 / 780 118 / 118
Review of Systems
-
All other systems: Reviewed and negative
Physical Exam
-
General: Well Developed, Well Nourished and No Apparent Distress
HEENT: Normocephalic and Atraumatic
Respiratory: Clear to Auscultation; Negative Wheezes or Rhonchi
Cardiac: Regular Rhythm and S1/S2; Negative Murmur
GI: Soft, Nontender, Nondistended and Normal Bowel Sounds
Musculoskeletal: No Clubbing, No Cyanosis and No Edema
Neuro: Awake and Alert
Psych: Calm
--- NOTE | 2025-07-18 13:01 | CM ---
Patient seen at bedside
discharge today
declined VN
IMM signed yesterday. In chart
PLAN: Home, no needs, declined VN
Cousin to transport
--- NOTE | 2025-07-18 13:54 | W.DCSUMMARY ---
Discharge Summary
Discharge Data
Date of Admission: 07/15/25
Date of Discharge: 07/18/25
-
Pending Results: No
Hospital Course
Primary care physician : Yeny Amaya
Principal Discharge diagnosis : Enterococcus sepsis from urinary tract infection with concern for pyelonephritis
Chronic Discharge diagnosis : Chronic kidney disease stage IIIa, essential hypertension, right upper lobe pulmonary nodule
Hospital Course : Patient was an 85-year-old female who came in complaining of fevers, chills, generalized body aches and poor appetite with increased urinary frequency. She also complained of flank pain bilaterally. Workup in the emergency
department showed sepsis likely secondary to Josias. Chest x-ray showed a 2.8 cm right upper lobe pulmonary nodule. Patient was admitted.
Problem #1: Enterococcus sepsis from urinary tract infection with concern for pyelonephritis. Patient was admitted and started on Rocephin. Blood cultures were negative. Enterococcus was isolated from the urine and Rocephin was changed to
Augmentin based on antibiogram's here at the hospital. Sensitivities were reviewed. Plan was to switch to Levaquin, EKG showed normal QT interval, however, after speaking with pharmacy, will keep patient on Augmentin at discharge. She should
complete a 7-day course.
Problem #2: All other medical issues. These include Chronic kidney disease stage IIIa, essential hypertension, right upper lobe pulmonary nodule. These medical issues were stable during her hospitalization. Medications were continued as able.
Patient stated that she already has follow-up for her right upper lobe pulmonary nodule with a CAT scan scheduled July 30.
Patient is stable for discharge at this time if there are any questions regarding this dictation or her hospital stay, please do not hesitate to call. Our office number is [phone].
Time for discharge 31 minutes.
Important imaging findings :
CT SCAN ABDOMEN/PELVIS IMPRESSION:
Markedly limited evaluation of the kidneys bilaterally without intravenous contrast for infection, no significant perinephric stranding bilaterally. No findings to suggest obstructive uropathy bilaterally.
Prior cholecystectomy. Stable dilatation of extrahepatic biliary tract likely the sequela of prior cholecystectomy, chronic.
Mild hepatomegaly.
Colonic diverticulosis most prominent distally. No intestinal obstruction or free air.
Discharge Plan
-
Patient Disposition: Home (Routine Discharge)
Discharge Diagnosis/Procedures: Sepsis due to Enterococcus urinary tract infection with concern for pyelonephritis, chronic kidney disease stage IIIa, essential hypertension, right upper lobe pulmonary nodule
Condition: Good
Diet: As tolerated and Regular
Activity: As tolerated
Driving Restrictions: As prior to admission
Bathing Restrictions: None
Activity Restrictions/Additional Instructions:
You were found to have a pulmonary nodule. Reports are that you are scheduled to have a CAT scan of the chest on July 30. We advise that you keep that appointment and continue to follow-up with your primary care physician.
Referrals:
Yeny Amaya CRNP [Family Provider, Internal Medicine] - in less than 1 week
Prescriptions:
New
amoxicillin-pot clavulanate 875-125 mg Tablet
1 tab PO Q12 7 Days Qty: 14 0RF
polyethylene glycol 3350 17 gram Powder In Packet
17 g PO DAILY Qty: 0 0RF
Continued
bisoprolol fumarate 10 mg tablet
10 mg PO DAILY
amlodipine 10 mg tablet
10 mg PO DAILY
rosuvastatin 20 mg tablet
20 mg PO DAILY
trazodone 100 mg tablet
100 mg PO HS
losartan
50 mg PO DAILY
Rx Instructions:
pt takes losartan potassium 50mgs po daily
Discharge Orders:
Discharge Patient (As Directed); Ordered 07/18/25
Ordered By: Elida Anderson
Discharge Date and Time
Discharge Date/Time: 07/18/25 13:42
Print Language: KITTITIAN
== END 2025-07-18 13:42 | disposition home or self-care (01) | DRG 872 ==
LOC: 3 WEST ACU 22:30
PROVIDERS: Clinical Nurse Specialist Family Health; Emergency Medicine; Physician Assistant Medical; ADMITTING PHYSICIAN Internal Medicine; ATTENDING PHYSICIAN Internal Medicine; EMERGENCY PHYSICIAN Emergency Medicine; FAMILY PHYSICIAN Nurse Practitioner Primary Care
DX: A41.81 Sepsis due to Enterococcus (principal); N12 Tubulo-interstitial nephritis, not specified as acute or chronic; N18.31 Chronic kidney disease, stage 3a; I12.9 Hypertensive chronic kidney disease with stage 1 through stage 4 chronic kidney disease, or unspecified chronic kidney disease; E78.00 Pure hypercholesterolemia, unspecified; K21.9 Gastro-esophageal reflux disease without esophagitis; K57.30 Diverticulosis of large intestine without perforation or abscess without bleeding; M85.80 Other specified disorders of bone density and structure, unspecified site; R91.1 Solitary pulmonary nodule; Z87.891 Personal history of nicotine dependence; Z90.49 Acquired absence of other specified parts of digestive tract; Z96.651 Presence of right artificial knee joint; Z79.899 Other long term (current) drug therapy; Z11.52 Encounter for screening for COVID-19
CPT/HCPCS: 71046; 74176; 80053; 81003; 81015; 83605; 85025; 87040; 87077; 87086; 87186; 87811; 93005; 96361; 96374; 97162; 99284

== ENCOUNTER → 2025-08-02 15:27 | Outpatient (REF) | payer MEDICARE, OTHER, SELFPAY | LOC: RAD 15:27 | PROVIDERS: ATTENDING PHYSICIAN Nurse Practitioner Primary Care | DX: Z87.891 Personal history of nicotine dependence (principal); R05.3 Chronic cough | CPT/HCPCS: 71250 ==

== ENCOUNTER 2025-08-16 06:28 | Day surgery (SDC) | payer MEDICARE, OTHER, SELFPAY ==
[2025-08-16] VITALS (8 sets, daily range): BP systolic 121–161; BP diastolic 58–78; BMI 23.8
[2025-08-16] MEDS: VENTOLIN NEBULES 2.5 MG INH (08:49)
[2025-08-16] MEDS: NSS 500 IV (09:04)
== END 2025-08-16 12:10 | disposition home or self-care (01) ==
LOC: SDS 06:28
PROVIDERS: ATTENDING PHYSICIAN Internal Medicine Critical Care Medicine
DX: C34.11 Malignant neoplasm of upper lobe, right bronchus or lung (principal); R59.0 Localized enlarged lymph nodes
CPT/HCPCS: 31629; 31628; 31645; 31624; 31623; 31627; 31654; 31652; 71045; 76000; 81459; 88112; 88173; 88305; 88333; 88341; 88342; 94640; C1887

== ENCOUNTER → 2025-09-27 10:28 | Outpatient (REF) | payer MEDICARE, OTHER, SELFPAY ==
[2025-09-27] VITALS (9 sets, daily range): BP systolic 60–168; BP diastolic 54–90
[2025-09-27] MEDS: ANCEF 10 IV (11:30)
[2025-09-27] MEDS: ZOFRAN 4 MG IV (12:48)
--- NOTE | 2025-09-27 13:44 | PTCARENOTE ---
IRAD note: post procedure, pt c/o lightheadedness, dizziness and nausea. Dr. Rowe notified. informed pt that sedation may have caused dizziness and lightheadedness.Nausea medicine given per order,see MAR. nausea relieved. at the time of
discharge, still c/o lightheadedness. able to ambulate to bathroom. D/C PIV. discharge instructions given to pt-verbalized understanding. [facility]. D/C home with daughter Monse and .
== END ==
LOC: RADI 10:28
PROVIDERS: ATTENDING PHYSICIAN Internal Medicine Hematology & Oncology
DX: C34.11 Malignant neoplasm of upper lobe, right bronchus or lung (principal)
CPT/HCPCS: 36561; 76937; 77001; 99152; 99153

== ENCOUNTER 2025-10-17 19:08 | Inpatient (IN) | payer MEDICARE, OTHER, SELFPAY ==
[2025-10-17] VITALS (14 sets, daily range): BP systolic 30–200; BP diastolic 57–120; BMI 26.1
[2025-10-17 16:19] LABS: Hematocrit 44.7 % (37.0-47.0); Hemoglobin 15.1 g/dL (12.0-16.0); Mean Corp Hgb Conc. 33.8 g/dL (33.0-37.0); Mean Corpuscular Volume 84.3 fL (81.0-99.0); Platelet Count 256 10^3/uL (130-400); Red Cell Dist. Width 13.6 % (11.5-14.5)
[2025-10-17] MEDS: ZOFRAN 4 MG IV (16:24)
[2025-10-17] MEDS: NSS 500 IV (16:25)
[2025-10-17] MEDS: DILAUDID 0.5 MG IV ×2 (16:25→18:04)
[2025-10-17 16:31] LABS: ALT (SGPT) 21 U/L (0-35); AST (SGOT) 24 U/L (14-36); Albumin 3.7 g/dl (3.5-5.0); Alkaline Phosphatase 63 U/L (38-126); Blood Urea Nitrogen 37 mg/dl (7-17); Calcium 10.0 mg/dl (8.4-10.2); Carbon Dioxide 27 mmol/L (22-30); Chloride 99 mmol/L (98-107); Estimated Creatinine Clearance 29 ml/min; Glucose 163 mg/dl (70-99); Lipase 49 U/L (23-300); Potassium 4.6 mmol/L (3.5-5.1); Sodium 132 mmol/L (135-145); Total Protein 6.4 g/dl (6.3-8.2); eGFR 44.91
--- NOTE | 2025-10-17 16:59 | ED.GENMED ---
History of Present Illness
General
Chief Complaint: Abdominal Pain
Source: patient
Exam Limitations: none
Time Seen by Provider: 10/17/25 15:23
Nursing documentation reviewed up to this point in time: agreed with
History of Present Illness
History of Present Illness:
85-year-old female with a past medical history of hypertension, hyperlipidemia, lung cancer currently on chemo and radiation therapy who presents to the emergency department for evaluation of abdominal pain. Patient reports onset of symptoms last
night and they have been constant since that time. She reports of diffuse pain worse in the lower abdomen. Radiates towards the rectum/vaginal region. Associated with nausea and vomiting today. She has been constipated with her last bowel
movement 2 days ago. Denies fever or chills. Denies urinary symptoms. She did receive chemotherapy and radiation treatment this week and Saturday.
Past History
Past History
ED Past Medical History: HTN and Hypercholesterolemia
ED Past Surgical History: Appendectomy and Tonsilectomy
Social History
Tobacco: Non-smoker
Alcohol: None
Drug: None
Personal:
Living: with family
Review of Systems
Review of Systems
All Other Systems: ROS reviewed and negative except as documented in HPI and ROS
Constitutional: Denies fever or chills
Respiratory: Denies cough
Cardiac: Denies chest pain
ABD/GI: Reports abdominal pain, nausea, vomiting and constipated; Denies diarrhea
: Denies dysuria or flank pain
Musculoskeletal: Denies neck pain or back pain
Neurological: Denies headache
Phy Exam
Physical Exam
Physical Exam:
General: Awake, alert; appears uncomfortable occasionally spitting into emesis bag
Head: Normocephalic, atraumatic
Eyes: Conjunctiva normal, sclera anicteric
Throat: Airway intact, handling secretions
Neck: Trachea midline, supple without meningismus
Lungs: Clear to auscultation bilaterally, no wheezing, rales, rhonchi
Heart: Regular rate and rhythm, no murmurs, gallops, or rubs
Abd: Firm, mildly distended, diffusely tender to palpation
Rectal: No fecal impaction or rectal masses
Neuro: Grossly intact
Skin: Warm and dry
Extremities: Warm and well-perfused
Scores
Heart Failure Risk
Heart Failure Risk Score: Not Applicable
Heart Score for Chest Pain Patients
STEMI patient?: Not applicable
Withdrawal Assessment of Alcohol
Withdrawal Assessment Completed?: Not applicable
Sepsis
Sepsis Screening
Sepsis Assessment: Sepsis
Sepsis Screening: Lactate >2mmol/L
Sepsis Screen
Sepsis Screen: Sepsis
Date: 10/17/25
Time: 18:33
Course
Orders/Labs/Results
Orders:
Orders
10/17/25 15:25
CT Abd/pelvis W Iv Cont Urgent
Comment:
Reason For Exam: abd pain, N/V, rectal pain
10/17/25 16:05
Complete Blood Count/With Diff Urgent
Comprehensive Metabolic Panel Urgent
Lactate Level [Lactic Acid] Urgent
Lipase Urgent
Manual Differential Urgent
10/17/25 16:22
0.9% Sodium Chloride 500 ml [Nss] 500 ml IV BOLUS
HYDROmorphone [Dilaudid] 0.5 mg IV NOW STA
Ondansetron Injectable [Zofran] 4 mg IV NOW STA
10/17/25 17:35
Urinalysis Reflex To Culture Urgent
Date Specimen was Collected: 10/17/25
Time Specimen was Collected: 17:34
Comment: Clean catch
Urine Microscopic Reflex Cult Urgent
10/17/25 17:54
HYDROmorphone [Dilaudid] 0.5 mg IV NOW STA
10/17/25 18:11
Piperacillin/Tazo 3.375 Gram [Zosyn] 3.375 gram in 50 ml IV NOW
10/17/25 18:17
SURGICAL CONSULT Urgent
Consulting Provider: Phil Mosher
Was physician already notified: Yes
10/17/25 18:18
0.9% Sodium Chloride 1000 ml [Nss] 1,000 ml IV BOLUS
10/17/25 18:30
Blood Culture Q30M
JENNIFER Source: Blood/Venous
Specimen Description:
10/17/25 19:00
Blood Culture Q30M
JENNIFER Source: Blood/Venous
Specimen Description:
Abnormal Lab Results
10/17/25 10/17/25
16:05 17:35
WBC 13.3 H 10^3/uL
(4.8-10.8)
Abs Neuts (Manual) 11.9 H 10^3/uL
(1.4-6.5)
Band Neutrophils 23 H %
(0-3)
Lymphocytes (Manual) 5 L %
(20-51)
Monocytes (Manual) 1 L %
(2-9)
Sodium 132 L mmol/L
(135-145)
BUN 37 H mg/dl
(7-17)
Creatinine 1.2 H mg/dL
(0.6-1.0)
Glucose 163 H mg/dl
(70-99)
Lactic Acid 2.2 H mmol/L
(0.7-2.0)
Ur Occult Blood Reflex 3+ A
(Negative)
Urine RBC 3-6 A /HPF
(0-2)
Urine Bacteria (Reflex) Few A
(Negative)
Urine Albumin (Reflex) 3+ A
(Neg - Trace)
10/17/25 16:05
10/17/25 16:05
Vital Signs
Initial and Last Documented VS:
Initial Vital Signs
Temp Pulse Resp BP Pulse Ox
37.1 C 81 22 173/74 94
12/14/25 13:58 10/17/25 13:58 10/17/25 13:58 10/17/25 13:58 10/17/25 13:58
Last Documented Vital Signs
Temp Pulse Resp BP Pulse Ox
37.1 C 97 25 200/69 97
10/17/25 13:58 10/17/25 18:15 10/17/25 18:15 10/17/25 18:00 10/17/25 18:00
MDM/Problems Addressed
Differential Diagnosis Includes:
Bowel obstruction, cholelithiasis, cholecystitis, diverticulitis, constipation
MDM/Problems Addressed:
85-year-old female presents for evaluation of abdominal pain associated with nausea, vomiting, mild constipation recently. Symptoms occurring in the setting of recent chemoradiation for lung cancer. Hypertensive and mild tachypnea but no fever, no
tachycardia. Physical exam is as noted. Plan to check labs including a CBC and CMP, lipase. Check urinalysis. Check CT abdomen. Treat pain and nausea and provide some IV fluids. Reassess after the above.
Labs reviewed: CBC does show leukocytosis to 13.3. Chemistry shows some renal insufficiency with an elevated BUN and creatinine. LFTs normal. Lipase normal. Awaiting imaging. Clinical reassessment after pain medications patient reports
improvement in her symptoms.
CT discussed with radiology�concerning for free air�there are some changes to suggest diverticulitis as potential source although appendix not visualized, cannot rule out perforated appendicitis. Case discussed with general surgery for
consultation. Cover with Jason. Discussed with hospitalist to facilitate admission pending surgical consultation.
Surgery reviewed CT, to evaluate at bedside. Hospitalist evaluated for admission.
Chronic conditions affecting care:
Lung cancer
Acute Exacerbation and/or Progression of Chronic Illness:
Acutely hypertensive likely pain related�treat pain but no emergent antihypertensives indicated at this point
Acute Exacerbation and/or Progression of Chronic Illness: HTN
*Radiology
Radiology exam reviewed: radiology read reviewed
*Pulse Oximetry
SaO2: 95
Oxygen Mode of Delivery: Room air
Patient hypoxic: no (95%)
*Critical Care Note
Total Time (30-74mins, 75-104mins- exclusive of procedures): Not Applicable
Data Reviewed
Review of Other/Old Records Reveals: Labs and Records
Source: patient and family
Patient Management
Discussion with other providers: Hospitalist (Discussed with hospitalist), Division Leader (Discussed with general surgeon) and Radiologist (Discussed with radiologist)
Escalation/DeEscalation of care consider admission/obs:
Admission indicated
ED Attending Note
-
Portions of this chart may have been created with voice recognition software.� Occasional wrong word or��sound alike� substitutions may have occurred due to the inherent limitations of voice recognition software.
Discharge Plan
Departure
Patient Disposition: Admit
Date of Disposition: 10/17/25
Time of Disposition: 18:17
Admit to doctor: Trey
Presentation/result/management discussed w/ accepting MD/DO: Hospitalist
Discharge Problem:
Diverticulitis, Perforated abdominal viscus
Prescriptions:
No Action
bisoprolol fumarate 10 mg tablet
10 mg PO HS
trazodone 100 mg tablet
100 mg PO HS
losartan 50 mg tablet
50 mg PO DAILY
amlodipine 5 mg tablet
5 mg PO DAILY
aspirin [Aspir-81] 81 mg Tablet,Delayed Release (Dr/Ec)
81 mg PO DAILY
rosuvastatin 5 mg tablet
5 mg PO DAILY
zinc acetate 50 mg (zinc) Capsule
50 mg PO Q48H
famotidine 10 mg Tablet
10 mg PO DAILY
biotin 2,500 mcg Capsule
2,500 mcg PO DAILY
Centrum Silver Women 8 mg iron-400 mcg-50 mcg Tablet
1 tab PO DAILY
turmeric 400 mg Capsule
400 mg PO DAILY
Referrals:
Yeny Amaya CRNP [Family Provider, Internal Medicine]
Interventions
Interventions:
*Risk Screen - Suicide Last Done: 10/17/25 14:02
*General Assessment Last Done: 10/17/25 14:01
*Neglect/Abuse Screening Last Done: 10/17/25 14:02
*ED COVID-19 Vaccine History Last Done: 10/17/25 14:01
*ED Influenza Vaccine History Last Done: 10/17/25 14:01
WL-[id number]-[id number] Assessment Last Done: 10/17/25 14:03
Discharge Date and Time
Print Language: MONEGASQUE
[2025-10-17 17:02] LABS: Absolute Neutrophils -Man Diff 11.9 10^3/uL (1.4-6.5)
[2025-10-17 17:03] LABS: Normal RBC Morphology Yes; Platelets Checked Yes; Total Cells Counted 100
[2025-10-17 17:51] LABS: Urine Character Clear (Clear)
[2025-10-17 18:07] LABS: Urine Urothelial Cell 0-2 /LPF (FEW)
[2025-10-17 18:08] LABS: Urine White Cell 0-2 /HPF (0-5)
[2025-10-17] MEDS: ZOSYN 50 IV (18:19)
[2025-10-17] MEDS: NSS 1000 IV (18:19)
--- NOTE | 2025-10-17 18:41 | HPS.HSE ---
Family Physician
-
Family Physician: Yeny Amaya
Chief Complaint
-
Abd pain
History of Present Illness
85-year-old woman with a past medical history of:
essential hypertension,
hyperlipidemia,
lung cancer currently on chemo and radiation therapy
presented for evaluation of abdominal pain. Onset of symptoms last night and they have been constant since that time. Diffuse pain worse in the lower abdomen with radiation towards the rectum/vaginal region, associated with nausea and vomiting
today. Last bowel movement 2 days ago. Denies fever or chills. Denies urinary symptoms. She did receive chemotherapy and radiation treatment this week and Saturday. At the time of my interview she had capacity to make medical choices.
Medical History
Past Medical History
Past Medical History: Reports Other
Additional Past Medical History:
Primary hypertension
Mixed hyperlipidemia
Atherosclerosis of artery of both lower extremities
Stage 3b chronic kidney disease
carotid atherosclerosis
GERD
liver cyst s/p removal
osteopenia
Cyst removed from Liver 04/2023
Right CEA
tonsillectomy
appendectomy
right knee replacement
Cyst on Liver removed
Admit 12/30/23 for abdominal symptoms dx with viral gastritis/URI 12/30/23
Sepsis due to Enterococcus urinary tract infection 07/19/25
Past Surgical History: Reports Other
Additional Past Surgical History:
See H&P
Social History
Tobacco: Non-smoker
Alcohol: None
Drug: None
Family History
Family History: Not pertinent
Allergies / Home Medications
Allergies reflects when Allergies were last updated in [facility].
Home Medications with original date entered in [facility]
Allergy/Medication List:
Allergies
Allergy/AdvReac Type Severity Reaction Status Date / Time
No Known Allergies Allergy Verified 10/17/25 13:58
Home Medications
bisoprolol fumarate 10 mg tablet 10 mg PO HS Blood Pressure 12/30/23
trazodone 100 mg tablet 100 mg PO HS sleep 12/30/23
amlodipine 5 mg tablet 5 mg PO DAILY 08/12/25
aspirin 81 mg tablet,delayed release 81 mg PO DAILY 08/12/25
biotin 2,500 mcg capsule 2,500 mcg PO DAILY 08/12/25
famotidine 10 mg tablet 10 mg PO DAILY 08/12/25
losartan 50 mg tablet 50 mg PO DAILY 08/12/25
yeeanxzm-mzbp-dhcl 8 mg-folic 400 mcg-K 50 mcg-lutein 300 mcg tablet (Centrum Silver Women) 1 tab PO DAILY 08/12/25
rosuvastatin 5 mg tablet 5 mg PO DAILY 08/12/25
zinc acetate 50 mg (zinc) capsule 50 mg PO Q48H 08/12/25
turmeric 400 mg capsule 400 mg PO DAILY 09/27/25
Review of Systems
-
History Source: Patient
A 12 point ROS was completed and negative except as noted: Yes
Abdomen/GI: Reports See HPI and Abdominal Pain
Physical Exam
Vital Signs
Vital Signs
Temp Pulse Resp BP Pulse Ox
98.7 F 97 25 200/69 97
10/17/25 13:58 10/17/25 18:15 10/17/25 18:15 10/17/25 18:00 10/17/25 18:00
Physical Exam
General: Well Developed, Well Nourished, Conversant and Pain
HEENT: NormoCephalic, Moist mucous membranes, Atraumatic, Nose Appears Normal and Ears Appear Normal
Respiratory: Clear
Cardiac: S1/S2 and Regular Rhythm
GI: Tender and Distended
Musculoskeletal: No Clubbing, No Cyanosis and No Edema
Skin: Warm and Dry; No Rash
Neuro: Awake, Alert and Oriented
Psych: Calm
Laboratory Results
-
10/17/25 16:05
12/14/25 16:05
Laboratory Results
Lactic Acid 2.2 mmol/L (0.7-2.0) H 10/17/25 16:05
Total Bilirubin 1.0 mg/dl (0.2-1.3) 10/17/25 16:05
AST 24 U/L (14-36) 10/17/25 16:05
ALT 21 U/L (0-35) 10/17/25 16:05
Alkaline Phosphatase 63 U/L (38-126) 10/17/25 16:05
Lipase 49 U/L (23-300) 10/17/25 16:05
Data Reviewed
-
Lab Data: Labs Reviewed by me
Impression/Plan
-
IMPRESSION:
85 woman with bowel perforation and free air in abdomen.
Imaging shows:
New moderate free air and free of fluid in the abdomen and pelvis concerning for perforated viscus.
Findings suggestive of mild mid sigmoid colon acute diverticulitis. New.
Probable reactive small bowel in the pelvis and mild small bowel ileus.
Several tiny pockets of air in the right lower quadrant and free fluid.
Acute appendicitis with perforation not excluded. [Chart states that she has h/o appendectomy]
No evidence of abscess formation.
Prior cholecystectomy. Intrahepatic biliary dilatation. Stable.
Bilateral cortical renal scarring. Stable
Small hiatal hernia. Stable
Hepatomegaly. Stable
PLAN:
1. Bowel perforation - needs surgery
NPO
IV abx
IV saline
Surgical consult
once she recovers from surgery, and can take oral meds, resume meds for:
Primary hypertension
Mixed hyperlipidemia
Atherosclerosis of artery of both lower extremities
Stage 3b chronic kidney disease
carotid atherosclerosis
GERD
osteopenia
Full code
VCD for DVTp for now
--- NOTE | 2025-10-17 19:33 | CON.GS ---
Consultation
-
Date/Time Consultation Requested: 10/17/2025 6 PM
Date/Time Consultation Performed: 10/17/2025 7:15 PM
Requesting Provider: Emergency room
Performing Provider: Dr. Mosher
Reason for Consultation: Perforated viscus
Medical History
-
Chief Complaint: Abdominal pain
History of Present Illness:
This is an 85-year-old female with a history of an appendectomy as a child as well as a liver cyst removal, right lung cancer who underwent her first dose of chemotherapy on . She did not know exactly what medication it was and a quick
search in [facility] was not helpful though I did state that in addition to the chemotherapy she was getting dexamethasone as well.
The patient endorses worsening shortness of breath over her baseline, denies Fever, Chest Pain. She does endorse nausea nausea and vomiting.
Last colonoscopy: Unsure
Past Medical History
Past Medical History: Other (Hypertension, stage III kidney disease, GERD, liver cysts, lung cancer)
Past Surgical History: Other (Excision of the liver cyst, appendectomy)
Social History
Tobacco: Non-Smoker
Alcohol: None
Drug: None
Personal:
Living: With Family
Family History
Family History: Reviewed & Not Pertinent
Allergies / Home Medications
Allergy/AdvReac Type Severity Reaction Status Date / Time
No Known Allergies Allergy Verified 10/17/25 13:58
�Medication �Instructions �Recorded �Confirmed �Type
bisoprolol fumarate 10 mg tablet 10 mg PO HS Blood Pressure 12/30/23 10/17/25 History
trazodone 100 mg tablet 100 mg PO HS sleep 12/30/23 10/17/25 History
amlodipine 5 mg tablet 5 mg PO DAILY 08/12/25 10/17/25 History
aspirin 81 mg tablet,delayed 81 mg PO DAILY 08/12/25 10/17/25 History
release
biotin 2,500 mcg capsule 2,500 mcg PO DAILY 08/12/25 10/17/25 History
losartan 50 mg tablet 50 mg PO DAILY 08/12/25 10/17/25 History
rhdswdns-nbcv-csac 8 mg-folic 400 1 tab PO DAILY 08/12/25 10/17/25 History
mcg-K 50 mcg-lutein 300 mcg tablet
(Centrum Silver Women)
rosuvastatin 5 mg tablet 5 mg PO DAILY 08/12/25 10/17/25 History
acetaminophen 325 mg tablet 650 mg PO DAILYPRN PRN mild pain 10/17/25 10/17/25 History
aluminum-mag hydroxide-simethicone 5 ml PO DAILYPRN PRN upset stomach 10/17/25 10/17/25 History
200 mg-200 mg-20 mg/5 mL oral susp
docusate sodium 100 mg tablet 200 mg PO DAILYPRN PRN constipation 10/17/25 10/17/25 History
fluticasone propionate 50 1 spray intranasal DAILY 10/17/25 10/17/25 History
mcg/actuation nasal
spray,suspension
folic acid 1 mg tablet 1 mg PO DAILY 10/17/25 10/17/25 History
lidocaine-prilocaine 2.5 %-2.5 % 1 applic topical DAILYPRN PRN port 10/17/25 10/17/25 History
topical cream access
polyvinyl alcohol 1.4 % eye drops 1 drp ophthalmic (eye) DAILY PRN 10/17/25 10/17/25 History
dry eyes
Review of Systems
-
All other systems: Negative unless noted
A 10 point review of systems was completed, and was negative except as per HPI.
Physical Exam
Vital Signs
Temp Pulse Resp BP Pulse Ox
98.7 F 87 16 144/62 96
10/17/25 13:58 10/17/25 18:45 10/17/25 18:45 10/17/25 19:00 10/17/25 18:45
10/16/25 10/17/25 10/18/25
06:59 06:59 06:59
Actual Weight 60.7 kg
Body Mass Index (BMI) 26.1
Lab Results
10/17/25 16:05
10/17/25 16:05
WBC 13.3 10^3/uL (4.8-10.8) H 10/17/25 16:05
Hgb 15.1 g/dL (12.0-16.0) 10/17/25 16:05
Hct 44.7 % (37.0-47.0) 10/17/25 16:05
Plt Count 256 10^3/uL (130-400) 10/17/25 16:05
Physical Exam
General: Well Developed and No Apparent Distress
HEENT: Normocephalic
Respiratory: Wheezes and Other (Labored respiration)
GI: Other (Tender to palpation, particularly in the left lower quadrant and pelvis. Distended.)
Neuro: AO x 3
Data Reviewed
-
CT Scan: Image Personally Visualized and interpreted, Report Reviewed by me, Discussed with Physician, Discussed with Patient and Discussed with Family
Labs: Labs Reviewed by me, Discussed with Physician, Discussed with Patient and Discussed with Family
Total Time Spent with Patient (in minutes): 25
Assessment / Plan
-
This is an 85-year-old female with history of appendectomy, cholecystectomy and excision of a liver cyst? Who presents with 1 day history of sudden onset abdominal pain in the setting of lung cancer currently undergoing chemotherapy with plan for
radiation therapy found to have pneumoperitoneum, free fluid and tenderness on exam all consistent with a perforated viscus, likely diverticulitis. Though fairly clinically stable I am concerned given her recent chemotherapy and steroid use it is
unlikely that this will heal on its own.
Will plan for an exploratory laparotomy likely bowel resection and possible ostomy.
N.p.o., IV fluids, IV antibiotics.
Risks/Benefits/Alternatives, expected postoperative course and possible complications (bleeding, infection, injury to surrounding structures, acute/chronic pain) discussed at length. Patient wishes to proceed with surgery. All questions answered.
Consent obtained. Plan of care also discussed with stepdaughter over the phone.
I spent 75 minutes in total for the care of this patient today including direct patient care and counseling, reviewing labs, imaging, coordination of care, as well as documentation.
--- NOTE | 2025-10-17 19:49 | W.SUR.PREOP ---
Pre-Operative Surgical Note
-
I have examined this patient prior to the performance of the scheduled procedure.
The patient's condition is unchanged from the time of the current History and
Physical and the patient is able to undergo the scheduled procedure.
--- NOTE | 2025-10-17 22:48 | W.IMMPOSTOP ---
Surgical Immed Post Op Note
-
Primary Surgeon: Phil Mosher MD
Assisting Surgeon: None
Pre-op Diagnosis: Perforated viscus
Post-op Diagnosis: Perforated purulent diverticulitis (Hinchy 3)
Procedure Performed: Open Baylee's procedure open (partial colectomy, end colostomy)
Anesthesia Type: General
Specimen / Cultures: Sigmoid colon
Estimated Blood Loss: 11 cc
Complications: None
Operative Findings: NG tube placed before induction, Castro placed just after induction. Abdomen entered safely through a lower midline incision. Hinchy 3 purulent contamination identified. 0.5 cm hole identified in the distal sigmoid colon on the
right lateral aspect. Transection point identified proximal to this and divided using an 80 LEANDRO staple load. The mesentery of the disease sigmoid colon was then ligated using a LigaSure device and then divided distal to the perforation using a
contour stapler. The stump was tagged with long 0 Prolene sutures. Part of the white line of Toldt was divided to get length on our stoma conduit. The abdomen was thoroughly irrigated with warm saline and suctioned until clear. A stab incision
was made in the right lower quadrant and the drain was placed down into the pelvis and up the left colic gutter and looped back down towards the rectal stump staple line. A left upper quadrant ostomy aperture was matured and the ostomy was
delivered through this. Her colon was quite bulky with fat which made this a little bit challenging. Once the stoma was delivered, the NG tube positioning was confirmed, tap blocks performed and piece of Seprafilm was placed in the abdomen over
the midline. The midline fascia was then approximated using [address] 2 needle anchored at each apex and run towards the middle taking 0.5 mm bites with 0.5 mm advancement and tied together. The midline skin was irrigated and then closed
loosely with skin marisa. We then turned our attention to the ostomy which was matured in the usual fashion. It was difficult to Kayleigh due to the bulkiness of the colon but it appeared to be viable and above the level of the skin. An ostomy
appliance was placed as well as midline Aquacel dressing. Counts were correct x 2
POST OP PLAN:
Imaging: None
Labs: Routine AM
Diet: NPO, expect ileus
Analgesia: Per ICU, tap blocks performed intraoperatively.
Neuro/vascular checks: Per unit protocol
AC/AP: Hold Therapeutic AC, Ok for DVT PPx
Activity: Ad Donna
Wound/Incisions/Drains: Routine, DEONTE to bulb suction, NG tube to low intermittent wall suction, Castro to gravity, routine stoma consult for stoma teaching and care.
Abx: Antibiotics x 7 days
Dispo: ICU.
[2025-10-18] VITALS (30 sets, daily range): BP systolic 97–214; BP diastolic 48–166; BMI 25.3
--- NOTE | 2025-10-18 | PTCARENOTE ---
Received pt. from PACU. Pt. currently in bed. Drowsy, but arousable. Oriented. PRN medication for pain, see MAR. Afebrile. Heart rhythm sinus. Blood pressure normotensive. Currently on nasal cannula. Lungs sound diminished. Abdomen obese. Colostomy
bag intact. Stoma pink, budded. NG tube to low intermittent suction. Castro catheter in place, draining without issues. Skin as documented. Discussed plan of care with patient. Vital signs stable at this time.
[2025-10-18 00:09] LABS: Glucose - Point of Care 159 mg/dl (70-99)
[2025-10-18] MEDS: ZOSYN 50 IV ×5 (00:28→23:54)
[2025-10-18] MEDS: DILAUDID 0.25 MG IV ×5 (00:33→17:51)
[2025-10-18 03:37] LABS: Hematocrit 38.3 % (37.0-47.0); Hemoglobin 13.1 g/dL (12.0-16.0); Mean Corp Hgb Conc. 34.2 g/dL (33.0-37.0); Mean Corpuscular Volume 85.9 fL (81.0-99.0); Platelet Count 182 10^3/uL (130-400); Red Cell Dist. Width 13.7 % (11.5-14.5)
[2025-10-18 03:42] LABS: APTT 24.4 Sec (23.4-35.0); INR 1.41; PT 17.4 Sec (11.4-14.6)
[2025-10-18 03:49] LABS: Blood Urea Nitrogen 34 mg/dl (7-17); Calcium 8.2 mg/dl (8.4-10.2); Carbon Dioxide 22 mmol/L (22-30); Chloride 104 mmol/L (98-107); Estimated Creatinine Clearance 29 ml/min; Glucose 163 mg/dl (70-99); Magnesium 2.3 mg/dl (1.6-2.3); Potassium 4.8 mmol/L (3.5-5.1); Sodium 132 mmol/L (135-145); eGFR 44.91
--- NOTE | 2025-10-18 04:00 | PTCARENOTE ---
Pt. assessment unchanged. AM labs drawn. IV fluids infusing. PRN pain medication, see MAR. Vital signs stable at this time.
--- NOTE | 2025-10-18 08:10 | CON.INTV ---
Consultation
Consultation Request
Date/Time Consultation Requested: 10/17/2025
Date/Time Consultation Performed: 10/18/2025
Requesting Provider: Tyra Ramos
Performing Provider: Dr. Mcgarry
Reason for Consultation: Sepsis due to perforated viscus
Medical History
-
Chief Complaint: Abdominal pain
History of Present Illness:
Ms Alvarez is a 85-year-old woman with a past medical history of CKD 3 baseline 1.3�1.4 hypertension hyperlipidemia right lung cancer ongoing chemotherapy last treatment 10/14, radiation 10/15, who presented to the ER with abdominal pain. Symptoms
started 10/16 suddenly in the lower abdomen that was associated with nausea and vomiting. In the ED she was afebrile with a pulse of 81, RR 22, BP 173/74 and saturating 94% on room air. Initial labs notable for leukocytosis 13.3 with left shift
absolute neutrophils 11.9 bands 23%, lactic acid 2.2. In the ED CT scan showed free air in the abdomen concerning for perforated viscus likely due to diverticulitis. Patient was started on IV fluids and Zosyn and general surgery was consulted and
on 10/17 patient underwent open Espinosa's procedure. There was a 0.5 cm hole identified in the distal colon that was purulent, disease mesentery was ligated and ostomy was created. Drain was left in place on the right side, NG tube was placed and
she was transferred to ICU. During the night patient complained of mild shortness of breath and an x-ray was ordered. X-ray showed mild interstitial edema, and NG tube in place with no obvious infiltrative process. In the morning the patient was
afebrile, although complaining of chills, and leukocytosis had improved to 7.6, lactic acid 1.1 and vital signs were stable with transient decrease in her BP , RR overnight. When I saw the patient she was comfortable, afebrile, normotensive and
saturating 98% on 3 L. She had no output in her ostomy bag, and was urinating dark urine, DEONTE drain had 100 mL of serosanguineous output.
Past Medical History
Past Medical History: HTN, Hypercholesterolemia and Other (CKD 3b)
Past Surgical History: Appendectomy, Cholecystectomy, Orthopedic (Right TKA), Tonsilectomy and Other (Right CEA)
Social History
Tobacco: Former Smoker (Stopped 30 years ago)
Alcohol: Former
Drug: None
Personal:
Living: With Family
Family History
Family History: Reviewed & Not Pertinent
Allergies / Home Medications
Allergies
Allergy/AdvReac Type Severity Reaction Status Date / Time
No Known Allergies Allergy Verified 10/17/25 13:58
Home Medications
�Medication �Instructions �Recorded �Confirmed �Last Taken �Type
bisoprolol fumarate 10 mg tablet 10 mg PO HS Blood Pressure 12/30/23 10/17/25 10/16/25 History
trazodone 100 mg tablet 100 mg PO HS sleep 12/30/23 10/17/25 10/16/25 History
amlodipine 5 mg tablet 5 mg PO DAILY 08/12/25 10/17/25 10/17/25 History
aspirin 81 mg tablet,delayed 81 mg PO DAILY 08/12/25 10/17/25 10/17/25 History
release
biotin 2,500 mcg capsule 2,500 mcg PO DAILY 08/12/25 10/17/25 10/17/25 History
losartan 50 mg tablet 50 mg PO DAILY 08/12/25 10/17/25 10/17/25 History
dcmlwigt-qmxa-gfyo 8 mg-folic 400 1 tab PO DAILY 08/12/25 10/17/25 10/17/25 History
mcg-K 50 mcg-lutein 300 mcg tablet
(Centrum Silver Women)
rosuvastatin 5 mg tablet 5 mg PO DAILY 08/12/25 10/17/25 10/17/25 History
acetaminophen 325 mg tablet 650 mg PO DAILYPRN PRN mild pain 10/17/25 10/17/25 10/17/25 History
aluminum-mag hydroxide-simethicone 5 ml PO DAILYPRN PRN upset stomach 10/17/25 10/17/25 10/17/25 History
200 mg-200 mg-20 mg/5 mL oral susp
docusate sodium 100 mg tablet 200 mg PO DAILYPRN PRN constipation 10/17/25 10/17/25 10/17/25 History
fluticasone propionate 50 1 spray intranasal DAILY 10/17/25 10/17/25 10/17/25 History
mcg/actuation nasal
spray,suspension
folic acid 1 mg tablet 1 mg PO DAILY 10/17/25 10/17/25 10/17/25 History
lidocaine-prilocaine 2.5 %-2.5 % 1 applic topical DAILYPRN PRN port 10/17/25 10/17/25 Unknown History
topical cream access
polyvinyl alcohol 1.4 % eye drops 1 drp ophthalmic (eye) DAILY PRN 10/17/25 10/17/25 Unknown History
dry eyes
Review of Systems
-
History Source: Patient
All other systems: Negative unless noted
Constitutional: Chills
Respiratory: Trouble Breathing
Abdomen/GI: Abdominal Pain
Vitals / Labs / Diagnostic Testing
Vital Signs
Temp Pulse Resp BP Pulse Ox
97.7 F 71 7 97/48 98
10/18/25 07:23 10/18/25 06:30 10/18/25 06:30 10/18/25 06:00 10/18/25 06:30
Lab Data
10/18/25 03:24
10/18/25 03:24
Laboratory Results
10/18/25
03:24
PT 17.4 H
INR 1.41
APTT 24.4
Diagnostic Testing:
Physical Exam
-
HEENT: Normocephalic and Anicteric
Cardiovascular: S1/S2 and Regular Rhythm
Respiratory: Clear and Non-Labored Respirations
GI: Soft and Tender (Diffuse tenderness)
Neurology: Awake, Alert and Oriented
Skin: Warm and Dry
General: Comfortable and Chills
Assessment
-
Ms Alvarez is a 85-year-old woman with a past medical history of CKD 3 baseline 1.2�1.4 hypertension hyperlipidemia right lung cancer ongoing chemotherapy last treatment 10/14, radiation on 10/15 who presented to the ER with abdominal pain. Initial
labs notable for leukocytosis 13.3 with left shift (absolute neutrophils 11.9 bands 23%), lactic acid 2.2. In the ED CT scan showed free air in the abdomen concerning for perforated viscus likely due to diverticulitis. General surgery was
consulted and on 10/17 patient underwent open Espinosa's procedure, now with colostomy.
#Sepsis secondary to perforated diverticulitis, resolved
#Acute hypoxemic respiratory insufficiency
#hyponatremia, mild
#Lung cancer, right lobe
#CKD stage III
#Hypertension
#Hyperlipidemia
#Neurologic
Pain: 5/10 abdominal pain
Analgesia: Ofirmev Q6H, hydromorphone 0.25 Q4H as needed, hydromorphone 0.5 Q4H as needed
Mentation: At baseline, AAO x 3
Activity: Bedrest
#Cardiovascular
Maintain MAP> 65
Pressors: None
QTc:435
Hypertension:
Hold home antihypertensives losartan, bisoprolol
#Respiratory
Hx lung cancer, starting chemo and radiation therapy with [place] cancer
Chest x-ray 10/18 with mild pulmonary congestion
Patient on 3 L satting 98%
Home O2: None
Wean oxygen as tolerated
#Gastrointestinal
Presented with perforated bowel due to diverticulitis
POD1 Espinosa's procedure
Diet: N.p.o. with ice chips
Stooling regimen: No regimen, colostomy bag without output or flatus
Tubes: NG tube in place, output 30 mL overnight
Antiemetics: Zofran 4 mg IV every 6 as needed
GI PPx: None
Perforated diverticulitis s/p Espinosa's procedure
Hyperlipidemia: Hold statin
#Renal
Castro present: Yes
Urine output: Dark urine 180 mL overnight
IVF: Normal saline rate 100 mL/h
Electrolytes: K>4 Mg>2
Na 132, low normal likely due to decreased p.o., continue to monitor
K 4.8
Mag 2.3
Phos 4.6
CKD stage III:
Baseline 1.2-1.4
Currently 1.2
Continue to monitor
#Infectious
Leukocytosis resolved, today 7.6
ABX: Zosyn, continue for 7 days, first dose 10/17
Microbiology: Blood cultures collected 10/17, pending
Antipyretics: Ofirmev 1 g every 6 hours
#Hematologic
DVT PPx: SCDs, subcu heparin
Hemoglobin: 13.1
PT 17.4
INR 1.4
#Endocrine
Maintain euglycemia with goal BG 140�180
#Surgical
POD 1 Espinosa's procedure
Colostomy
Ostomy consult
#Access
Central:
Right VIP
Peripheral:
Left arm median cubital 20-gauge
Left hand 18-gauge
CODE STATUS: Full code
Critical Care time 65 mins -- The patient is admitted for acute critical illness for the treatment of vital organ failure and/or prevention of further life-threatening conditions. Total care includes time spent in review of history, physical exam,
medications, hemodynamic/ventilator parameters, laboratory data, imaging and discussion with house staff, pharmacy, respiratory therapy, cushion stuffer, and nursing.
Data:
ION Bronchoscopy and EBUS 08/2025: RUL mass and 4R, 11R sampled.
[2025-10-18] MEDS: ZOFRAN 4 MG IV ×3 (08:48→19:42)
[2025-10-18] MEDS: NSS 1000 IV ×3 (08:48→20:00)
[2025-10-18] MEDS: OFIRMEV 100 IV ×3 (09:16→19:42)
--- NOTE | 2025-10-18 10:00 | W.PN.GS2 ---
Today's Communication / Plan
-
NPO/NGT/IVF/ABX/Pain control
Assessment / Plan
-
85 yo female with h/o lung ca on chemo (LD 10/12/25) and XRT presenting with perforated sigmoid diverticulitis now POD #1 Baylee's procedure
AFVSS
NGT with low bilious outputs
Await bowel recovery
No leukocytosis/fevers. H/H stable
Mild hyponatremia. Cr elevated to 1.2 but at baseline
Plan:
Continue NPO x ice chips for comfort with NGT in place to LIWS
Stoma nurse consulted for stoma teaching
C/W IV zosyn (anticipate 7 day course)
C/W IVF while NPO
Analgesics with prn narcotics and scheduled Ofirmev
OOB as able
Medical management as per primary team
SCDs for VTE ppx with heparin SQ
Subjective Data
-
Date of Service: October 18, 2025
Pt seen and examined at bedside with Dr. Mosher. Denies n/v. C/O dry mouth. Notes NGT quite uncomfortable, sore throat. Abdominal discomfort present. Daughter in law present, updated on pt progress.
Objective Data
-
Intake and Output
10/17/25 10/18/25 10/19/25
06:59 06:59 06:59
Intake Total 850 / 950 400 / 400
Output Total 330 / 330 130 / 130
Balance 520 / 620 270 / 270
Intake:
IV fluids (Total) 750 / 850 300 / 300
Nss 1,000 ml @ 100 mls/hr IV . 700 / 800 300 / 300
Q10H IAM Rx#:[id number]
normosol 50 / 50
IV piggybacks 100 / 100 100 / 100
Output:
Drain Output (Total) 70 / 70 80 / 80
Right Abdomen Ronny-Hadley 70 / 70 80 / 80
Gastrointestinal tube output (
Total)
[place] Sump
Urine, Long 180 / 180 50 / 50
Urine, Voided
Vital Signs
Temp Pulse Resp BP Pulse Ox
97.7 F 74 8 156/93 98
10/18/25 07:23 10/18/25 09:30 10/18/25 09:30 10/18/25 09:00 10/18/25 09:30
Lab Results
10/18/25 03:24
10/18/25 03:24
Calcium 8.2 mg/dl (8.4-10.2) L D 10/18/25 03:24
Calcium Cancelled 10/18/25 03:24
Phosphorus 4.6 mg/dl (2.5-4.5) H 10/18/25 03:24
Magnesium 2.3 mg/dl (1.6-2.3) 10/18/25 03:24
Magnesium Cancelled 10/18/25 03:24
Total Bilirubin 1.0 mg/dl (0.2-1.3) 10/17/25 16:05
AST 24 U/L (14-36) 10/17/25 16:05
ALT 21 U/L (0-35) 10/17/25 16:05
Alkaline Phosphatase 63 U/L (38-126) 10/17/25 16:05
Total Protein 6.4 g/dl (6.3-8.2) 10/17/25 16:05
Albumin 3.7 g/dl (3.5-5.0) 10/17/25 16:05
Physical Exam
-
NAD
ABD soft, expected TTP, minimal distention
Stoma pink/viable, appliance flat
Incisions with intact dressing, DEONTE with SSF
Patient has a long catheter: Yes
Patient has a central line: No
--- NOTE | 2025-10-18 11:20 | W.PN.HOSP.TC ---
Today's Communication/Plan
-
Await return of bowel function
NPO, IVF
Pain control
UIS wean O2
If OK with surgeon can go to [address] [place] [id number].
Assessment / Plan
Assessment / Plan
85-year-old female presented to the hospital with abdominal pain
EKG-sinus rhythm anterior infarct age undetermined
Chest x-ray-NG tube, mild pulmonary edema. 4.1 cm right upper lobe mass likely cancer.
CT abdomen and pelvis 10/17/2025-new moderate free air and free fluid in the abdomen and pelvis concerning for perforated viscus. Findings suggestive of mild mid sigmoid colon acute diverticulitis. Probable reactive small bowel in the pelvis and
small bowel ileus. Several tiny pockets of air in the right lower quadrant and free fluid. Acute recommend ascites with perforation cannot be excluded. No evidence of abscess. Prior cholecystectomy. Intrahepatic biliary dilatation. Bilateral
cortical renal scarring. Small hiatal hernia. Hepatomegaly.
PET scan reviewed.
CVS: S1-S2 normal
Chest: CTA B/L, decreased at bases.
Abdomen: Midline incision with Aquacel, Colostomy bag empty, NO BS
Extremities: No edema, normal pulses
# Sepsis secondary to perforated acute diverticulitis
Lactic acidosis resolved
Status post open Baylee procedure-partial colectomy with end colostomy done by Dr. Mosher on 10/17/2025
Continue postoperative care
Continue NG tube, n.p.o.
Intraoperative cultures not available. Continue blood cultures
Continue IV Zosyn
# Mild hyponatremia-follow
# Acute hypoxic resp insufficiency- wean O2 as tolerated. IS .
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 Radiation Rx started 10/15/25. At the
completion if Chemo Durvalumab planned for 1 year .
# Hypertension-on losartan, bisoprolol and amlodipine as outpatient-hold
# Hyperlipidemia/atherosclerosis on rosuvastatin as outpatient-hold
# CKD stage III
# Insomnia on trazodone as outpatient-hold
# History of carotid stenosis with right CEA in the past
# GERD/hiatal hernia-PPI
# Osteoporosis
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
# Ex smoker
# DVT prophylaxis-subcutaneous heparin
# Full code
D/W RN at bed side
CC time over 3o min
Previous records reviewed.
Part of this note was created using voice recognition system. Occasional wrong word or��sound alike� substitutions may have inadvertently occurred due to the inherent limitations of voice recognition software. If noted kindly bring it to my
attention for correction.
Anticipated Discharge: > 48 hours
Subjective/Interval History
-
Date of Service: October 18, 2025
Objective Data
-
Labs:
Laboratory Results
10/18/25 10/18/25 10/18/25
03:23 03:24 03:24
WBC 7.6
Hgb 13.1 Cancelled
Hct 38.3 Cancelled
Plt Count 182 D
PT 17.4 H
INR 1.41
APTT 24.4
Sodium Cancelled 132 L
Potassium Cancelled
Chloride
Carbon Dioxide
BUN
Creatinine
Glucose
Calcium
10/18/25 10/18/25 10/18/25
03:24 03:24 03:24
WBC
Hgb
Hct
Plt Count
PT
INR
APTT
Sodium
Potassium 4.8
Chloride Cancelled 104
Carbon Dioxide Cancelled 22
BUN Cancelled
Creatinine
Glucose
Calcium
10/18/25 10/18/25 10/18/25
03:24 03:24 03:24
WBC
Hgb
Hct
Plt Count
PT
INR
APTT
Sodium
Potassium
Chloride
Carbon Dioxide
BUN 34 H
Creatinine Cancelled 1.2 H
Glucose Cancelled 163 H
Calcium Cancelled
10/18/25
03:24
WBC
Hgb
Hct
Plt Count
PT
INR
APTT
Sodium
Potassium
Chloride
Carbon Dioxide
BUN
Creatinine
Glucose
Calcium 8.2 L D
Vital Signs:
Vital Signs
Temp Pulse Resp BP Pulse Ox
98 F 71 8 144/59 98
10/18/25 11:03 10/18/25 10:30 10/18/25 10:30 10/18/25 10:00 10/18/25 10:34
I&O
10/17/25 10/18/25 10/19/25
06:59 06:59 06:59
Intake Total 850 / 950 500 / 500
Output Total 330 / 330 160 / 160
Balance 520 / 620 340 / 340
--- NOTE | 2025-10-18 11:55 | WOUNDNOTE ---
JOSEFA RN note: Patient s/p ostomy surgery, for perforated diverticulum.
See H&P for complete history. Lives with .
PMH: Lung cancer, last chemo 10/12/25. HTN, UTI, appendectomy.
Ostomy location and type: Colostomy, Baylee's. Stoma pink and slightly budded. Appliance intact no leakage.
Introduced myself to patient, supplies ordered for bedside. Nurse Bethea made aware and will bring to patient's rm. Will bring Colostomy folder tomorrow and do teaching, when more alert. Plan to Instruct patient and any family interested in learning.
Maurilio wafer # [id number]
Maurilio pouch # [id number]
Note to case management: VN services recommended for ostomy teaching.
Nursing care plan updated, will follow as needed.
--- NOTE | 2025-10-18 13:22 | PTCARENOTE ---
Updates with family and patient thru am. Surgical, Hospitalist and bander operator teams all at bedside with patient and family. Continue with post op day cares. Turning protocol, incentive spirometer, and follow up pain management teaching. Continue
ivf, antibiotics, and medications with follow up. Update and follow assessment trends. NGT to intermittent low wall suction. Follow ngt and DEONTE bulb drainage. Assessment unchanged, vitall sigsn as documented, wean o2 as tolerated.
--- NOTE | 2025-10-18 14:06 | OR.RPT ---
Operative Report
Operative Report
Patient Name: Niya Alvarez
: 1940
Date of Operation: 10/17/2025
Preoperative Diagnosis: Perforated viscus
Postoperative Diagnosis: Perforated purulent diverticulitis (Hinchy 3)
Procedure(s):
Open Baylee's procedure (partial colectomy, end colostomy)
Surgeon(s):
Dr. Mosher
District Sales Leader(s):
None
Anesthesia: General
Estimated Blood Loss: 11 cc
Urine Output: See Anesthesia notes
Drains/Lines/Implants: 19 [place] round Jim
Specimens:
1. Sigmoid colon
HPI/Surgical Indications:
This is a an 85-year-old female who presents with 1 day of left lower quadrant abdominal pain in the setting of lung cancer, recently started on chemotherapy radiation along with steroids. Exam, labs and imaging are consistent with acute perforated
diverticulitis. Risks/Benefits/Alternatives were discussed at length, and the patient agreed to proceed with emergent surgery.
Operative Findings: NG tube placed before induction, Castro placed just after induction. Abdomen entered safely through a lower midline incision. Hinchy 3 purulent contamination identified. 0.5 cm hole identified in the distal sigmoid colon on the
right lateral aspect. Transection point identified proximal to this and divided using an 80 LEANDRO staple load. The mesentery of the disease sigmoid colon was then ligated using a LigaSure device and then divided distal to the perforation using a
contour stapler. The stump was tagged with long 0 Prolene sutures. Part of the white line of Toldt was divided to get length on our stoma conduit. The abdomen was thoroughly irrigated with warm saline and suctioned until clear. A stab incision
was made in the right lower quadrant and the drain was placed down into the pelvis and up the left colic gutter and looped back down towards the rectal stump staple line. A left upper quadrant ostomy aperture was matured and the ostomy was
delivered through this. Her colon was quite bulky with fat which made this a little bit challenging. Once the stoma was delivered, the NG tube positioning was confirmed, tap blocks performed and piece of Seprafilm was placed in the abdomen over
the midline. The midline fascia was then approximated using [address] 2 needle anchored at each apex and run towards the middle taking 0.5 mm bites with 0.5 mm advancement and tied together. The midline skin was irrigated and then closed
loosely with skin marisa. We then turned our attention to the ostomy which was matured in the usual fashion. It was difficult to Kayleigh due to the bulkiness of the colon but it appeared to be viable and above the level of the skin. An ostomy
appliance was placed as well as midline Aquacel dressing. Counts were correct x 2
Procedure Description:
Upon entering the room, the patient had an episode of bilious emesis so the decision was made to place an NG tube before induction, this was placed successfully by anesthesia after 2 attempts with successful bilious drainage of the stomach. After
successful induction of general anesthesia the patient was placed supine, and a Castro was placed. The abdomen was prepared and draped in a sterile fashion so as to expose the entire abdomen. A surgical time out was taken. Abdominal access was
obtained through a lower periumbilical midline incision. The abdomen was entered safely. Immediate pus was identified. All large Mauro wound retractor was placed to protect the skin. There were some adhesions of omentum to the anterior
abdominal wall from her prior surgeries that were lysed first. A roughly 0.5 cm hole was identified in the distal sigmoid on the right lateral aspect with stool visible through the hole. After protecting the rest of the bowel with a large blue
towel from window in the sigmoid colon mesentery near the apex of laxity was made in the colon was divided with an 80 purple load. The mesentery as well as the colon itself was quite thickened and boggy consistent with acute on chronic
disease/inflammation of the colon. The mesentery of the proximal sigmoid and descending colon was freed/medialized from the lateral wall after incising the white line of Toldt. We then turned our attention distally and the mesentery of the disease
sigmoid colon was divided until we were past the point of the perforation. We then created a window around of the sigmoid colon and divided the bowel using a contour TA stapler green load. The perforated sigmoid colon was passed off the field.
Copious irrigation was used so washout the abdomen in all 4 quadrants. Hemostasis was confirmed. We then marked the sigmoid stump with 0 Prolene sutures x 2. A stab incision was made in the right lower quadrant and a 19 [place] round Jim drain
was introduced passed down into the pelvis and up the left colic gutter. This was secured to the skin with a 2-0 nylon suture. Care was taken to ensure the drain laid near the rectal stump staple line. A left upper quadrant ostomy aperture was
matured and the ostomy was delivered through this. Her colon was quite bulky which made delivering the colon somewhat challenging and required debulking some of the fat/colonic appendages. Once delivered, we confirmed that the NG tube was in good
position, performed bilateral tap blocks and then placed a piece of Seprafilm in the midline followed by the omentum. The midline fascia was then closed using [address] 2 needle anchored at each apex and run towards the middle taking
0.5 mm bites with 0.5 mm advancement and then tied together in the middle. The midline skin was then irrigated and then loosely approximated using marisa. We then turned our attention to the ostomy which was matured in the typical fashion with
3-0 Vicryl pops. Due to the bulkiness of the colon it was difficult to kelley the edges but overall the stoma laid above the surface of the skin, and was healthy with pink viable skin. An ostomy appliance was placed as well as a midline Aquacel
dressing. Counts were correct x 2. The patient was awoken from anesthesia and transported to the ICU in fair condition.
I was the attending physician and performed the procedure with no assistance. I was present for all portions of the case.
Phil Mosher MD
[2025-10-18] MEDS: HEPARIN 5000 UNITS SC ×2 (17:08→23:55)
[2025-10-18] MEDS: DILAUDID 0.5 MG IV ×2 (19:42→23:55)
--- NOTE | 2025-10-18 21:00 | PTCARENOTE ---
Patient alert/oriented, anxious at times. HOOVER, PRN dilaudid for pain. Afebrile. NSR. Palpable pulses, no edema. IV lines flushed/patent, fluids as ordered. 3L nasal cannula. Clear to auscultation, nonproductive cough seems related to NGT irritation.
NPO status maintained. NGT to LIWS, draining brown output. Abdomen soft, tender. Midline aquacell with small shadowing as marked from previous shift. Colostomy budded/no output. DEONTE X1. Nothing per rectum ordered. Castro as ordered. Will monitor.
[2025-10-19] VITALS (17 sets, daily range): BP systolic 129–182; BP diastolic 54–142; BMI 25.4
[2025-10-19] MEDS: OFIRMEV 100 IV ×4 (01:54→21:40)
[2025-10-19] MEDS: ATIVAN 0.25 MG IV (01:55)
--- NOTE | 2025-10-19 02:21 | PTCARENOTE ---
Pt c/o anxiety and can't sleep. Small dose IV ativan given as ordered. Resting comfortably. Will monitor.
[2025-10-19] MEDS: ZOSYN 50 IV ×3 (05:17→18:03)
[2025-10-19] MEDS: DILAUDID 0.5 MG IV ×3 (05:30→18:04)
[2025-10-19 06:09] LABS: Hematocrit 37.0 % (37.0-47.0); Hemoglobin 12.0 g/dL (12.0-16.0); Mean Corp Hgb Conc. 32.4 g/dL (33.0-37.0); Mean Corpuscular Volume 86.9 fL (81.0-99.0); Platelet Count 144 10^3/uL (130-400); Red Cell Dist. Width 14.2 % (11.5-14.5)
[2025-10-19 06:16] LABS: Blood Urea Nitrogen 42 mg/dl (7-17); Calcium 8.1 mg/dl (8.4-10.2); Carbon Dioxide 30 mmol/L (22-30); Chloride 103 mmol/L (98-107); Estimated Creatinine Clearance 22 ml/min; Glucose 98 mg/dl (70-99); Magnesium 2.6 mg/dl (1.6-2.3); Potassium 3.9 mmol/L (3.5-5.1); Sodium 138 mmol/L (135-145); eGFR 37.33
--- NOTE | 2025-10-19 07:20 | W.PN.GS2 ---
Today's Communication / Plan
-
DC Long
okay to transfer to floors
Assessment / Plan
-
85 yo female with h/o lung ca on chemo (LD 10/12/25) and XRT presenting with perforated sigmoid diverticulitis now POD #2 Baylee's procedure
AFVSS
NGT with low bilious outputs
Await bowel recovery
No leukocytosis/fevers. H/H stable
Mild hyponatremia. Cr elevated to 1.2 but at baseline
Plan:
DC Long
PPI
Continue NPO x ice chips for comfort with NGT in place to LIWS
Stoma nurse consulted for stoma teaching
C/W IV zosyn (anticipate 7 day course)
C/W IVF while NPO
Analgesics with prn narcotics and scheduled Ofirmev
OOB as able
Medical management as per primary team
SCDs for VTE ppx with heparin SQ
Cleared from a surgical perspective for RNF
Time Spent
Total Time Spent with Patient (in minutes): 10
Subjective Data
-
Date of Service: October 19, 2025
Interval Events:
No acute events overnight. Slept well. Pain Controlled. Denies Nausea/Vomiting, +bowel function.
Objective Data
-
Intake and Output
10/18/25 10/19/25 10/20/25
06:59 06:59 06:59
Intake Total 850 / 950 1870 / 1870
Output Total 330 / 330 2560 / 2560
Balance 520 / 620 -690 / -690
Intake:
IV fluids (Total) 750 / 850 1600 / 1600
Nss 1,000 ml @ 50 mls/hr IV . 700 / 800 1600 / 1600
Q20H IAM Rx#:[id number]
normosol 50 / 50
IV piggybacks 100 / 100 150 / 150
Amount instilled into GI Tube ( 120 / 120
Total)
Terry Sump 120 / 120
Output:
Drain Output (Total) / 235
Right Abdomen Ronny-Hadley 235 / 235
Gastrointestinal tube output ( 1200 / 1200
Total)
Terry Sump 1200 / 1200
Urine, Long 180 / 180 1125 / 1125
Urine, Voided 50 / 50
Vital Signs
Temp Pulse Resp BP Pulse Ox
97.5 F 82 9 165/65 99
10/19/25 05:23 10/19/25 06:30 10/19/25 06:30 10/19/25 06:00 10/19/25 06:30
Lab Results
10/19/25 05:37
10/19/25 05:37
Calcium 8.1 mg/dl (8.4-10.2) L 10/19/25 05:37
Phosphorus 4.6 mg/dl (2.5-4.5) H 10/18/25 03:24
Magnesium 2.6 mg/dl (1.6-2.3) H 10/19/25 05:37
Total Bilirubin 1.0 mg/dl (0.2-1.3) 10/17/25 16:05
AST 24 U/L (14-36) 10/17/25 16:05
ALT 21 U/L (0-35) 10/17/25 16:05
Alkaline Phosphatase 63 U/L (38-126) 10/17/25 16:05
Total Protein 6.4 g/dl (6.3-8.2) 10/17/25 16:05
Albumin 3.7 g/dl (3.5-5.0) 10/17/25 16:05
Physical Exam
-
GENERAL/NEURO: Awake, Alert, no distress
CHEST: Unlabored breathing on RA
ABDOMEN: Soft, Non-Tender, Non-Distended appropriately tender, distended, ostomy pink patent and productive, DEONTE serosanguineous
Patient has a long catheter: Yes
Patient has a central line: No
[2025-10-19] MEDS: PROTONIX IV 40 MG IV (08:20)
[2025-10-19] MEDS: NSS (PRESERVATIVE FREE) 10 ML IV (08:20)
[2025-10-19] MEDS: HEPARIN 5000 UNITS SC ×2 (08:21→15:35)
--- NOTE | 2025-10-19 09:36 | PTCARENOTE ---
report received, assessments per work list. increased discomfort, prn dilaudid per orders. foely removed, assisted out of bed to chair. coughing and deep breathing encouraged. ngt draining large amounts dark brown fuid. colostomy budded, pink. no
output. rare bowel sound noted. call newton in reach
--- NOTE | 2025-10-19 10:46 | W.PN.HOSP.TC ---
Today's Communication/Plan
-
Add IV beta-blockers
As needed hydralazine
Increase the rate of IV fluids
Okay to transfer to 2 S.
PT OT
Assessment / Plan
Assessment / Plan
85-year-old female presented to the hospital with abdominal pain
EKG-sinus rhythm anterior infarct age undetermined
Chest x-ray-NG tube, mild pulmonary edema. 4.1 cm right upper lobe mass likely cancer.
CT abdomen and pelvis 10/17/2025-new moderate free air and free fluid in the abdomen and pelvis concerning for perforated viscus. Findings suggestive of mild mid sigmoid colon acute diverticulitis. Probable reactive small bowel in the pelvis and
small bowel ileus. Several tiny pockets of air in the right lower quadrant and free fluid. Acute recommend ascites with perforation cannot be excluded. No evidence of abscess. Prior cholecystectomy. Intrahepatic biliary dilatation. Bilateral
cortical renal scarring. Small hiatal hernia. Hepatomegaly.
PET scan reviewed.
CVS: S1-S2 normal
Chest: CTA B/L, decreased at bases.
Abdomen: Midline incision with Aquacel, Colostomy bag minimal bloodstained fluid, NO BS appreciated by me
Extremities: No edema
# Sepsis secondary to perforated acute diverticulitis
Lactic acidosis resolved
Status post open Baylee procedure-partial colectomy with end colostomy done by Dr. Mosher on 10/17/2025
Continue postoperative care
Continue NG tube, n.p.o. until return of bowel function
Intraoperative cultures not available. Continue blood cultures
Castro discontinued
Continue IV Zosyn
# Mild hyponatremia-better
# Acute hypoxic resp insufficiency- wean O2 as tolerated. IS .
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 Radiation Rx started 10/15/25. At the
completion if Chemo Durvalumab planned for 1 year .
# Hypertension-on losartan, bisoprolol and amlodipine as outpatient-hold oral agents given NPO. Add IV beta-blockers and as needed hydralazine
# Hyperlipidemia/atherosclerosis on rosuvastatin as outpatient-hold as NPO
# MINH on CKD stage III-increase the rate of IV fluids and follow creatinine
# Insomnia on trazodone as outpatient-hold as NPO
# History of carotid stenosis with right CEA in the past
# GERD/hiatal hernia-PPI
# Osteoporosis
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
# Ex smoker
# DVT prophylaxis-subcutaneous heparin
# Full code
D/W RN at bed side
OK for tele
Part of this note was created using voice recognition system. Occasional wrong word or��sound alike� substitutions may have inadvertently occurred due to the inherent limitations of voice recognition software. If noted kindly bring it to my
attention for correction.
Anticipated Discharge: > 48 hours
Subjective/Interval History
-
Date of Service: October 19, 2025
Objective Data
-
Labs:
Laboratory Results
10/19/25
05:37
WBC 5.2
Hgb 12.0
Hct 37.0
Plt Count 144 D
Sodium 138
Potassium 3.9
Chloride 103
Carbon Dioxide 30
BUN 42 H
Creatinine 1.4 H
Glucose 98
Calcium 8.1 L
Vital Signs:
Vital Signs
Temp Pulse Resp BP Pulse Ox
97.6 F 78 10 147/54 98
10/19/25 08:30 10/19/25 10:00 10/19/25 10:00 10/19/25 10:00 10/19/25 10:38
I&O
10/18/25 10/19/25 10/20/25
06:59 06:59 06:59
Intake Total 850 / 950 1870 / 1920 330 / 330
Output Total 330 / 330 2560 / 2560 225 / 225
Balance 520 / 620 -690 / -640 105 / 105
--- NOTE | 2025-10-19 11:06 | W.PN.INTV ---
Today's Communication / Plan
Recommendations
DC Castro
Downgrade from ICU
Assessment
-
Ms Alvarez is a 85-year-old woman with a past medical history of CKD 3 baseline 1.2�1.4 hypertension hyperlipidemia right lung cancer ongoing chemotherapy last treatment 10/14, radiation on 10/15 who presented to the ER with abdominal pain. Initial
labs notable for leukocytosis 13.3 with left shift (absolute neutrophils 11.9 bands 23%), lactic acid 2.2. In the ED CT scan showed free air in the abdomen concerning for perforated viscus likely due to diverticulitis. General surgery was
consulted and on 10/17 patient underwent open Espinosa's procedure, now with colostomy.
#Sepsis secondary to perforated diverticulitis, resolved
#Acute hypoxemic respiratory insufficiency, resolved
#hyponatremia, mild, resolved
#Lung cancer, right lobe
#CKD stage III
#Hypertension
#Hyperlipidemia
#Neurologic
Pain: 5/10 abdominal pain
Analgesia: Ofirmev Q6H, hydromorphone 0.25 Q4H as needed, hydromorphone 0.5 Q4H as needed
Mentation: At baseline, AAO x 3
Activity:
#Cardiovascular
Maintain MAP> 65
Pressors: None
QTc:435
Essential hypertension:
Hold home antihypertensives losartan, bisoprolol
Patient hypertensive in ICU
Hydralazine as needed SBP over 160
Lopressor 2.5mg every 6 hours
#Respiratory
Hx non-small cell lung cancer PD-L1 35%, Kras +, starting chemo and radiation therapy with [place] cancer
Chest x-ray 10/18 with mild pulmonary congestion
Patient on 3 L satting 98%
Home O2: None
Wean oxygen as tolerated
#Gastrointestinal
Sepsis secondary to diverticulitis perforation
Presented with perforated bowel due to diverticulitis
POD2 Espinosa's procedure (10/17)
Diet: N.p.o. with ice chips
Stooling regimen: No regimen, colostomy bag without output or flatus
Tubes: NG tube in place, output 30 mL overnight
Antiemetics: Zofran 4 mg IV every 6 as needed
GI PPx: None
Hyperlipidemia: Hold statin
#Renal
Castro present: No
Urine output: Dark urine 180 mL overnight
IVF: Normal saline rate 50 mL/h
Electrolytes: K>4 Mg>2
Na 138
K 3.9
Mag 2.6
Castro removed 10/19
bladder scan protocol
CKD stage III:
Baseline 1.2-1.4
Currently 1.4
Continue to monitor
#Infectious
Leukocytosis resolved
ABX: Zosyn, continue for 7 days, first dose 10/17
Microbiology: Blood cultures collected 10/17, no growth to date 24 hours
Antipyretics: Ofirmev 1 g every 6 hours
#Hematologic
DVT PPx: SCDs, subcu heparin
Hemoglobin: 12
PT 17.4 on 10/18
INR 1.4
#Endocrine
Maintain euglycemia with goal BG 140�180
#Surgical
POD 2 Espinosa's procedure
Surgery following
Ostomy consult
#Access
Central:
Right VIP
Peripheral:
Left arm median cubital 20-gauge
Left hand 18-gauge
Dispo: Downgrade from ICU
CODE STATUS: Full code
Critical Care time 65 mins -- The patient is admitted for acute critical illness for the treatment of vital organ failure and/or prevention of further life-threatening conditions. Total care includes time spent in review of history, physical exam,
medications, hemodynamic/ventilator parameters, laboratory data, imaging and discussion with house staff, pharmacy, respiratory therapy, cash register mechanic, and nursing.
Data:
ION Bronchoscopy and EBUS 08/2025: RUL mass and 4R, 11R sampled.
Subjective Dataa
Subjective Data
Date of Service:
Patient was seen at bedside this morning. She reports that she has shortness of breath at night but was feeling better overall this morning. She reports sore throat from NG tube but she denied fevers chills nausea vomiting. She reports no flatus
or bowel movement. Date of Service: October 19, 2025
Review of Systems
HEENT: Oral/Throat Pain
GI: Abdominal Pain (Along incision)
Objective Data
Data Reviewed
Vital Signs / I&O / Oxygen:
Vital Signs
Temp Pulse Resp BP Pulse Ox
97.6 F 78 10 147/54 98
10/19/25 08:30 10/19/25 10:00 10/19/25 10:00 10/19/25 10:00 10/19/25 10:38
Intake and Output
10/18/25 10/19/25 10/20/25
06:59 06:59 06:59
Intake Total 850 / 950 1870 / 1920 330 / 330
Output Total 330 / 330 2560 / 2560 225 / 225
Balance 520 / 620 -690 / -640 105 / 105
SaO2 98
Nasal Cannula flow liters per 1
minute
Physical Exam
General: Comfortable
HEENT: Normocephalic
Cardiovascular: S1-S2 and Regular Rhythm
Respiratory: Clear and Non-Labored Respirations
GI: Soft and Tender (Along incision)
Neurology: Awake and Alert
Skin: Warm and Dry
Labs/Micro/Reports
Lab Data
10/19/25 05:37
10/19/25 05:37
Microbiology
10/17/25 18:25 Blood/Venous Blood Culture - Preliminary
No Growth in 24 hours- Final report to follow
10/17/25 18:25 Blood/Venous Blood Culture - Preliminary
No Growth in 24 hours- Final report to follow
--- NOTE | 2025-10-19 11:52 | CM ---
Chart reviewed. Attempted to complete assessment
Pt is in ICU out in chair , too drowsy to engage in conversation
Spoke with ferny Shea over the phone but was not able to talk at the time
LVM with Farshad
CM will try again later
[2025-10-19] MEDS: LOPRESSOR 2.5 MG IV ×2 (12:06→18:03)
--- NOTE | 2025-10-19 12:59 | CM ---
Chart reviewed. Attempted to talk with patient in ICU but she was sleeping
Spoke with ferny Shea on the phone
She lives in an apartment with with elevator access
Independent with ADLs and ambulation
no DME
PCP MANUAL LATHE OPERATOR Yeny Amaya
Pharmacy [facility]
no hx of VN nor SNF
DCP is to go home with services vs SNF?
PT eval needed
CM will continue to follow up for any dcp needs
[2025-10-19] MEDS: DILAUDID 0.25 MG IV (13:17)
[2025-10-19] MEDS: CHLORASEPTIC/SORE THROAT SPRAY 1 SPRAY PO ×3 (13:18→19:15)
--- NOTE | 2025-10-19 14:51 | PTCARENOTE ---
left message for patient daughter regarding room change to 2 [facility]
[2025-10-19] MEDS: APRESOLINE 5 MG IV (15:41)
--- NOTE | 2025-10-19 16:30 | PTCARENOTE ---
report to [address] [place] [address] RN. patient with increased anxiety regarding pending transfer to [address] [place] [address]. Hosptilist updated by tiger text. orders pending
--- NOTE | 2025-10-19 17:00 | PTCARENOTE ---
Pt received from ICU via bed. Transport was w/o incident. Pt is AAOx3, HR reg/irreg., lungs are with fine crackles b/l bases. Resp. easy. Pt is NSR on media monitor. VS: 97.7-90-16-173/75, pulse ox 94-96% 2L via nc., colostomy w/budded stoma,
scant amt. of serosanq. drainage noted. DEONTE drain to right abd intact. Old bloody drainage noted on Primaseal dressing to mid abd./dressing intact. Pt w/ ngt to left nare at 50cm intact. hooked to low intermittent suction. Pt instructed on plan of
care, Pt verbalized understanding of instructions, call newton is within reach.
[2025-10-19] MEDS: NSS 1000 IV (17:48)
[2025-10-20] VITALS (8 sets, daily range): BP systolic 126–189; BP diastolic 64–94; PULSE 101; O2SAT 96
[2025-10-20] MEDS: ZOSYN 50 IV ×5 (00:15→23:40)
[2025-10-20] MEDS: LOPRESSOR 2.5 MG IV ×5 (00:15→23:39)
[2025-10-20] MEDS: HEPARIN 5000 UNITS SC ×4 (00:19→23:40)
[2025-10-20] MEDS: APRESOLINE 5 MG IV ×4 (00:29→23:41)
[2025-10-20] MEDS: DILAUDID 0.5 MG IV ×2 (00:48→08:55)
[2025-10-20] MEDS: OFIRMEV 100 IV (02:39)
[2025-10-20] MEDS: NSS 1000 IV (06:32)
[2025-10-20 07:06] LABS: Hematocrit 33.6 % (37.0-47.0); Hemoglobin 11.5 g/dL (12.0-16.0); Mean Corp Hgb Conc. 34.2 g/dL (33.0-37.0); Mean Corpuscular Volume 85.1 fL (81.0-99.0); Platelet Count 122 10^3/uL (130-400); Red Cell Dist. Width 13.9 % (11.5-14.5)
[2025-10-20 07:28] LABS: Blood Urea Nitrogen 32 mg/dl (7-17); Calcium 8.2 mg/dl (8.4-10.2); Carbon Dioxide 25 mmol/L (22-30); Chloride 105 mmol/L (98-107); Estimated Creatinine Clearance 31 ml/min; Glucose 102 mg/dl (70-99); Potassium 3.4 mmol/L (3.5-5.1); Sodium 138 mmol/L (135-145); eGFR 55.90
[2025-10-20] MEDS: NSS (PRESERVATIVE FREE) 10 ML IV (08:53)
[2025-10-20] MEDS: PROTONIX IV 40 MG IV (08:53)
--- NOTE | 2025-10-20 10:24 | W.PN.GS2 ---
Today's Communication / Plan
-
Cont current mgmt
Assessment / Plan
-
85 yo female with h/o lung ca on chemo (LD 10/12/25) and XRT presenting with perforated sigmoid diverticulitis now POD #3 Baylee's procedure
AFVSS
NGT with low bilious outputs
Await bowel recovery
No leukocytosis/fevers. H/H stable
Cr normalized
Plan:
PPI
Continue NPO x ice chips for comfort with NGT in place to LIWS
Stoma nurse consulted for stoma teaching
C/W IV zosyn (anticipate 7 day course)
C/W IVF while NPO
Analgesics with prn narcotics and scheduled Ofirmev
OOB as able
Medical management as per primary team
SCDs for VTE ppx with heparin SQ
PT
Subjective Data
-
Date of Service: October 20, 2025
AFVSS, denies n/v with ng to suction, diaz controlled, some gas via stoma
Objective Data
-
Intake and Output
10/19/25 10/20/25 10/21/25
06:59 06:59 06:59
Intake Total 1870 / 1920 1330 / 1330 1500 / 1500
Output Total 2560 / 2560 1425 / 1425
Balance -690 / -640 -95 / -95 1500 / 1500
Intake:
IV fluids (Total) 1600 / 1650 900 / 900 1200 / 1200
Nss 1,000 ml @ 100 mls/hr IV . 1600 / 1650 900 / 900
Q10H IAM Rx#:[id number]
IV piggybacks 150 / 150 250 / 250 300 / 300
Amount instilled into GI Tube ( 120 / 120 180 / 180
Total)
Sabine Sump 120 / 120 180 / 180
Output:
Drain Output (Total) 235 / 235 50 / 50
Right Abdomen Ronny-Hadley 50 / 50
Gastrointestinal tube output ( 1200 / 1200 700 / 700
Total)
Sabine Sump 1200 / 1200 700 / 700
Urine, Long 1125 / 1125 175 / 175
Urine, Voided 500 / 500
Other:
Number of approximated SMALL 4
amounts of urine
Vital Signs
Temp Pulse Resp BP Pulse Ox
98 F 103 16 173/79 97
10/20/25 07:50 10/20/25 07:50 10/20/25 07:50 10/20/25 07:50 10/20/25 07:50
Lab Results
10/20/25 06:45
10/20/25 06:45
Calcium 8.2 mg/dl (8.4-10.2) L 10/20/25 06:45
Phosphorus 4.6 mg/dl (2.5-4.5) H 10/18/25 03:24
Magnesium 2.6 mg/dl (1.6-2.3) H 10/19/25 05:37
Total Bilirubin 1.0 mg/dl (0.2-1.3) 10/17/25 16:05
AST 24 U/L (14-36) 10/17/25 16:05
ALT 21 U/L (0-35) 10/17/25 16:05
Alkaline Phosphatase 63 U/L (38-126) 10/17/25 16:05
Total Protein 6.4 g/dl (6.3-8.2) 10/17/25 16:05
Albumin 3.7 g/dl (3.5-5.0) 10/17/25 16:05
Physical Exam
-
Gen: NAD
Abd: soft, nd, incision cdi, stoma PPV with moderate gas in bad and scant bowel sweat, DEONTE ss
Patient has a long catheter: No
Patient has a central line: No
--- NOTE | 2025-10-20 10:41 | W.PN.HOSP.TC ---
Today's Communication/Plan
-
Encourage OOB and have PT OT evaluate
AB
NPO with NGT for now
Assessment / Plan
Assessment / Plan
85-year-old female presented to the hospital with abdominal pain
EKG-sinus rhythm anterior infarct age undetermined
Chest x-ray-NG tube, mild pulmonary edema. 4.1 cm right upper lobe mass likely cancer.
CT abdomen and pelvis 10/17/2025-new moderate free air and free fluid in the abdomen and pelvis concerning for perforated viscus. Findings suggestive of mild mid sigmoid colon acute diverticulitis. Probable reactive small bowel in the pelvis and
small bowel ileus. Several tiny pockets of air in the right lower quadrant and free fluid. Acute recommend ascites with perforation cannot be excluded. No evidence of abscess. Prior cholecystectomy. Intrahepatic biliary dilatation. Bilateral
cortical renal scarring. Small hiatal hernia. Hepatomegaly.
PET scan reviewed.
CVS: S1-S2 normal
Chest: CTA B/L, decreased at bases.
Abdomen: Midline incision with Aquacel, Colostomy bag minimal bloodstained fluid, NO BS appreciated by me
Extremities: No edema
# Sepsis secondary to perforated acute diverticulitis
Lactic acidosis resolved
Status post open Baylee procedure-partial colectomy with end colostomy done by Dr. Mosher on 10/17/2025
Continue postoperative care
Continue NG tube, n.p.o. until return of bowel function
Intraoperative cultures not available. Blood cultures neg
Castro discontinued- Has urinary frequency- Will watch 24 more hours. If has symptoms - will add Pyridium
Continue IV Zosyn
# Mild hyponatremia-better
# Hypokalemia- replace
# Thrush- Nystatin
# Acute hypoxic resp insufficiency- Off O2. COntinue IS
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 Radiation Rx started 10/15/25. At the
completion if Chemo Durvalumab planned for 1 year .
# Hypertension-on losartan, bisoprolol and amlodipine as outpatient-hold oral agents given NPO. Continue IV beta-blockers and as needed hydralazine
# Hyperlipidemia/atherosclerosis on rosuvastatin as outpatient-hold as NPO
# MINH on CKD stage III- Creat better
# Insomnia on trazodone as outpatient-hold as NPO
# History of carotid stenosis with right CEA in the past
# GERD/hiatal hernia-PPI
# Osteoporosis
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
# Ex smoker
# DVT prophylaxis-subcutaneous heparin
# Full code
D/W RN at bed side
D/W and step daughter at bed side
Encourage OOB and have PT OT evaluate
Part of this note was created using voice recognition system. Occasional wrong word or��sound alike� substitutions may have inadvertently occurred due to the inherent limitations of voice recognition software. If noted kindly bring it to my
attention for correction.
Anticipated Discharge: > 48 hours
Subjective/Interval History
-
Date of Service: October 20, 2025
Objective Data
-
Labs:
Laboratory Results
10/20/25
06:45
WBC 4.8
Hgb 11.5 L
Hct 33.6 L
Plt Count 122 L
Sodium 138
Potassium 3.4 L
Chloride 105
Carbon Dioxide 25
BUN 32 H
Creatinine 1.0
Glucose 102 H
Calcium 8.2 L
Vital Signs:
Vital Signs
Temp Pulse Resp BP Pulse Ox
98 F 103 16 173/79 97
10/20/25 07:50 10/20/25 07:50 10/20/25 07:50 10/20/25 07:50 10/20/25 07:50
I&O
10/19/25 10/20/25 10/21/25
06:59 06:59 06:59
Intake Total 1870 / 1920 1330 / 1330 1500 / 1500
Output Total 2560 / 2560 1425 / 1425
Balance -690 / -640 -95 / -95 1500 / 1500
[2025-10-20] MEDS: KCL 260 MEQ IV (10:49)
--- NOTE | 2025-10-20 11:37 | CM ---
POD #3 Baylee's procedure for perforated sigmoid diverticulitis. Discharge POC: Awaiting therapy evaluation.
[2025-10-20] MEDS: MYCOSTATIN ORAL SUSPENSION 5 ML PO ×3 (12:28→21:34)
[2025-10-20] MEDS: D5LR 1000 IV (14:34)
[2025-10-20] MEDS: DILAUDID 0.25 MG IV ×2 (16:00→20:43)
[2025-10-20] MEDS: NSS IV (17:36)
[2025-10-20] MEDS: NSS (PRESERVATIVE FREE) 0.125 ML IV (22:10)
[2025-10-20] MEDS: ATIVAN 0.25 MG IV (22:10)
[2025-10-21] VITALS (7 sets, daily range): BP systolic 154–190; BP diastolic 68–98; BMI 25.3
--- NOTE | 2025-10-21 02:24 | W.PN.UPDATE ---
Update Note
Progress Note Update
RN reported patient is anxious. she takes Trazodone at home to help sleep
Ativan 0.25mg IV ordered.
[2025-10-21] MEDS: DILAUDID 0.25 MG IV ×3 (03:10→14:17)
--- NOTE | 2025-10-21 04:35 | PTCARENOTE ---
Multiple runs of sinus tach observed on pershing missile crewmember throughout shift. Patient remained asymptomatic. Vital signs monitored. BUTTER MELTER notified. AM labs ordered. Will continue to monitor.
[2025-10-21] MEDS: D5LR 1000 IV (04:50)
[2025-10-21] MEDS: ZOSYN 50 IV ×4 (05:37→23:08)
[2025-10-21] MEDS: LOPRESSOR 2.5 MG IV (05:38)
[2025-10-21 08:00] LABS: Hematocrit 33.6 % (37.0-47.0); Hemoglobin 11.2 g/dL (12.0-16.0); Mean Corp Hgb Conc. 33.3 g/dL (33.0-37.0); Mean Corpuscular Volume 85.9 fL (81.0-99.0); Red Cell Dist. Width 14.6 % (11.5-14.5)
[2025-10-21 08:04] LABS: Blood Urea Nitrogen 22 mg/dl (7-17); Calcium 8.5 mg/dl (8.4-10.2); Carbon Dioxide 29 mmol/L (22-30); Chloride 105 mmol/L (98-107); Estimated Creatinine Clearance 31 ml/min; Glucose 185 mg/dl (70-99); Magnesium 1.8 mg/dl (1.6-2.3); Potassium 2.9 mmol/L (3.5-5.1); Sodium 139 mmol/L (135-145); eGFR 55.90
[2025-10-21] MEDS: MYCOSTATIN ORAL SUSPENSION 5 ML PO ×4 (09:09→21:54)
[2025-10-21] MEDS: NSS (PRESERVATIVE FREE) 10 ML IV (09:10)
[2025-10-21] MEDS: PROTONIX IV 40 MG IV (09:10)
[2025-10-21] MEDS: HEPARIN 5000 UNITS SC (09:10)
[2025-10-21 09:21] LABS: Platelet Count 89 10^3/uL (130-400)
[2025-10-21] MEDS: APRESOLINE 5 MG IV ×2 (09:21→20:17)
[2025-10-21] MEDS: ZOFRAN 4 MG IV ×2 (09:27→17:33)
--- NOTE | 2025-10-21 10:06 | W.PN.HOSP.TC ---
Today's Communication/Plan
-
Increase beta-mindy dose
Pain control
Encourage ambulation as much as she can-if surgeon okay clamp NG tube for ambulation within the room and restart once back in bed
Encourage incentive spirometry
Correct potassium
Assessment / Plan
Assessment / Plan
85-year-old female presented to the hospital with abdominal pain
EKG-sinus rhythm anterior infarct age undetermined
Chest x-ray-NG tube, mild pulmonary edema. 4.1 cm right upper lobe mass likely cancer.
CT abdomen and pelvis 10/17/2025-new moderate free air and free fluid in the abdomen and pelvis concerning for perforated viscus. Findings suggestive of mild mid sigmoid colon acute diverticulitis. Probable reactive small bowel in the pelvis and
small bowel ileus. Several tiny pockets of air in the right lower quadrant and free fluid. Acute recommend ascites with perforation cannot be excluded. No evidence of abscess. Prior cholecystectomy. Intrahepatic biliary dilatation. Bilateral
cortical renal scarring. Small hiatal hernia. Hepatomegaly.
PET scan reviewed.
Oral thrush better
CVS: S1-S2 normal
Chest: CTA B/L, decreased at bases.
Abdomen: Midline incision with Aquacel, Colostomy bag minimal bloodstained fluid, NO BS appreciated by me
Extremities: No edema
# Sepsis secondary to perforated acute diverticulitis
Lactic acidosis resolved
Status post open Baylee procedure-partial colectomy with end colostomy done by Dr. Mosher on 10/17/2025
Continue postoperative care
Continue NG tube, n.p.o. until return of bowel function
Intraoperative cultures not available. Blood cultures neg
Castro discontinued
Continue IV Zosyn
# Mild hyponatremia-better
# Thrombocytopenia-possibly effects from recent chemo but hold heparin and also check HIT panel even though suspicion is low
# Hypokalemia- replace and follow
# Thrush- Nystatin
# Acute hypoxic resp insufficiency- Off O2. Continue IS
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 Radiation Rx started 10/15/25. At the
completion if Chemo Durvalumab planned for 1 year .
# Hypertension-on losartan, bisoprolol and amlodipine as outpatient-hold oral agents given NPO. Continue IV beta-blockers and as needed hydralazine. Increase beta-blockers to 5 mg given elevated blood pressure. Also control pain
# Hyperlipidemia/atherosclerosis on rosuvastatin as outpatient-hold as NPO
# MINH on CKD stage III- Creat better
# Insomnia on trazodone as outpatient-hold as NPO.
# History of carotid stenosis with right CEA in the past
# GERD/hiatal hernia-PPI
# Osteoporosis
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
# Ex smoker
# DVT prophylaxis-subcutaneous heparin
# Full code
D/W RN at bed side
Dr. Cano was updated yesterday about patient's hospital stay and course.
Encourage OOB and have PT OT evaluate
Part of this note was created using voice recognition system. Occasional wrong word or��sound alike� substitutions may have inadvertently occurred due to the inherent limitations of voice recognition software. If noted kindly bring it to my
attention for correction.
Anticipated Discharge: > 48 hours
Subjective/Interval History
-
Date of Service: October 21, 2025
Objective Data
-
Labs:
Laboratory Results
10/21/25
07:10
WBC 5.3
Hgb 11.2 L
Hct 33.6 L
Plt Count 89 L D
Sodium 139
Potassium 2.9 L
Chloride 105
Carbon Dioxide 29
BUN 22 H
Creatinine 1.0
Glucose 185 H
Calcium 8.5
Vital Signs:
Vital Signs
Temp Pulse Resp BP Pulse Ox
98.2 F 102 16 190/98 96
10/21/25 07:55 10/21/25 07:55 10/21/25 07:55 10/21/25 07:55 10/21/25 07:55
I&O
10/20/25 10/21/25 10/22/25
06:59 06:59 06:59
Intake Total 1330 / 1330 3190 / 4280 1090 / 1090
Output Total 1425 / 1425 725 / 1125 400 / 400
Balance -95 / -95 2465 / 3155 690 / 690
[2025-10-21] MEDS: KCL 270 MEQ IV (10:13)
[2025-10-21] MEDS: LOPRESSOR 5 MG IV ×3 (12:20→23:08)
[2025-10-21] MEDS: DILAUDID 0.5 MG IV ×3 (12:33→20:41)
--- NOTE | 2025-10-21 15:05 | WOUNDNOTE ---
[facility] RN Note: Confirmed with Dr. Thomas to change post open mid abdominal incision dressing and apply dry gauze and nursing can change dry gauze daily. Dressing changed. Incision appears approximated with marisa intact. There was moderate sanguinous
drainage on removed dressing.
--- NOTE | 2025-10-21 15:05 | WOUNDNOTE ---
WO RN note: Patient s/p ostomy surgery on 10/18/25 Colostomy.
See H&P for complete history.
PMH:
Ostomy location and type: LUQ stoma pink and flush about 1 1/8 inches. Peristomal skin intact. SS drainage in pouch.
Instructed patient and JIMMY Shea ostomy pouch emptying and changing appliance using [place] wafer # [id number], Alex seal and Maurilio pouch # [id number].
Ostomy supplies ordered from [facility] and at bedside.
Note to case management: VN services recommended for ostomy teaching. Spoke with JATINDER Hurtado who is speaking with JIMMY. JIMMY feeling overwhelmed and may need to have patient hire help if needed at home. She help take care of patient's .
Monse does not live with patient. Next appliance change due Saturday. Will plan Saturday afternoon teaching session.
--- NOTE | 2025-10-21 15:26 | WOUNDNOTE ---
SACRAL/COCCYX (with photo flash)
--- NOTE | 2025-10-21 15:28 | W.PN.GS2 ---
Today's Communication / Plan
-
Awaiting return of bowel function
Assessment / Plan
-
85 yo female with h/o lung ca on chemo (LD 10/12/25) and XRT presenting with perforated sigmoid diverticulitis now POD #3 Baylee's procedure
AFVSS
NGT with low bilious outputs
Await bowel recovery
No leukocytosis/fevers. H/H stable
Cr normalized
Plan:
PPI
Continue NPO x ice chips for comfort with NGT in place to LIWS
Stoma nurse consulted for stoma teaching
C/W IV zosyn (anticipate 7 day course)
C/W IVF while NPO
Analgesics with prn narcotics and scheduled Ofirmev
OOB as able
Medical management as per primary team
SCDs for VTE ppx with heparin SQ
PT
Time Spent
Total Time Spent with Patient (in minutes): 20
Subjective Data
-
Date of Service: October 21, 2025
Interval Events:
No acute events overnight. Some bowel function. Really hates the NG tube
Objective Data
-
Intake and Output
10/20/25 10/21/25 10/22/25
06:59 06:59 06:59
Intake Total 1330 / 1330 3190 / 4280 1090 / 1090
Output Total 1425 / 1425 725 / 1125 400 / 400
Balance -95 / -95 2465 / 3155 690 / 690
Intake:
Oral fluids 240 / 240
IV fluids (Total) 900 / 900 2250 / 3150 900 / 900
Nss 1,000 ml @ 100 mls/hr IV . 900 / 900
Q10H IAM Rx#:[id number]
IV piggybacks 250 / 250 610 / 710 100 / 100
Amount instilled into GI Tube ( 180 / 180 90 / 180 90 / 90
Total)
[place] Sump 180 / 180 90 / 180 /
Output:
Drain Output (Total)
Right Abdomen Ronny-Hadley
Gastrointestinal tube output ( 700 / 700 700 / 1100 400 / 400
Total)
[place] Sump 700 / 700 700 / 1100 400 / 400
Urine, Long 175 / 175
Urine, Voided 500 / 500
Other:
How many times incontinent 1
SMALL amount urine
Number of approximated SMALL 4 8
amounts of urine
Number of approximated MODERATE 1
amounts of urine
Vital Signs
Temp Pulse Resp BP Pulse Ox
98.1 F 101 18 154/68 96
10/21/25 11:33 10/21/25 11:33 10/21/25 11:33 10/21/25 11:33 10/21/25 11:33
Lab Results
10/21/25 07:10
10/21/25 07:10
Calcium 8.5 mg/dl (8.4-10.2) 10/21/25 07:10
Phosphorus 4.6 mg/dl (2.5-4.5) H 10/18/25 03:24
Magnesium 1.8 mg/dl (1.6-2.3) 10/21/25 07:10
Total Bilirubin 1.0 mg/dl (0.2-1.3) 10/17/25 16:05
AST 24 U/L (14-36) 10/17/25 16:05
ALT 21 U/L (0-35) 10/17/25 16:05
Alkaline Phosphatase 63 U/L (38-126) 10/17/25 16:05
Total Protein 6.4 g/dl (6.3-8.2) 10/17/25 16:05
Albumin 3.7 g/dl (3.5-5.0) 10/17/25 16:05
Physical Exam
-
GENERAL/NEURO: Awake, Alert, no distress
CHEST: Unlabored breathing on RA
ABDOMEN: Soft, appropriately tender, mildly distended, stoma pink patent and productive. DEONTE serosanguineous. NG tube with light bilious output
Patient has a long catheter: No
Patient has a central line: No
[2025-10-21] MEDS: KCL 260 MEQ IV (16:20)
[2025-10-21] MEDS: D5LR IV (16:26)
--- NOTE | 2025-10-21 18:13 | WOUNDNOTE ---
WOC RN Note: t/c Spoke with Marquez at [place] and ordered patient a [place] ostomy secure starter kit. Patient had given verbal permission to order a [place] ostomy secure starter kit.
[2025-10-21] MEDS: ATIVAN 0.25 MG IV (23:07)
[2025-10-21] MEDS: NSS (PRESERVATIVE FREE) 0.125 ML IV (23:08)
[2025-10-22] VITALS (8 sets, daily range): BP systolic 121–191; BP diastolic 56–91; PULSE 114
[2025-10-22] MEDS: DILAUDID 0.5 MG IV (02:27)
[2025-10-22] MEDS: LOPRESSOR 5 MG IV (05:24)
[2025-10-22] MEDS: ZOSYN 50 IV ×4 (05:25→23:51)
[2025-10-22] MEDS: D5LR 1000 IV (05:27)
[2025-10-22] MEDS: MYCOSTATIN ORAL SUSPENSION 5 ML PO ×4 (08:01→21:27)
[2025-10-22] MEDS: ZOFRAN 4 MG IV (08:02)
[2025-10-22] MEDS: DILAUDID 0.25 MG IV (08:02)
[2025-10-22] MEDS: PROTONIX IV 40 MG IV (08:03)
[2025-10-22] MEDS: NSS (PRESERVATIVE FREE) 10 ML IV (08:03)
[2025-10-22] MEDS: APRESOLINE 5 MG IV (08:07)
[2025-10-22 08:53] LABS: Hematocrit 32.0 % (37.0-47.0); Hemoglobin 10.2 g/dL (12.0-16.0); Mean Corp Hgb Conc. 31.9 g/dL (33.0-37.0); Mean Corpuscular Volume 87.7 fL (81.0-99.0); Platelet Count 52 10^3/uL (130-400); Red Cell Dist. Width 14.8 % (11.5-14.5)
[2025-10-22 08:57] LABS: Blood Urea Nitrogen 20 mg/dl (7-17); Calcium 7.9 mg/dl (8.4-10.2); Carbon Dioxide 29 mmol/L (22-30); Chloride 108 mmol/L (98-107); Estimated Creatinine Clearance 34 ml/min; Glucose 144 mg/dl (70-99); Magnesium 1.7 mg/dl (1.6-2.3); Potassium 3.2 mmol/L (3.5-5.1); Sodium 141 mmol/L (135-145); eGFR > 60.00
--- NOTE | 2025-10-22 09:24 | CM ---
10/21/25 15:05 - Case Management Note by Cherie Mixon
Acct Num: [id number] : 06/24/1956 Patient Age: 69
Spoke with Step-daughter in conjunction with PT and ostomy nurse She is concerned about learning how perform ostomy before the patient is discharged. CM discussed the probablity that the pt will need to have HH- ostomy care and education. PT plans
to meet with step-daughter on Saturday when she performs the next ostomy care.
CM provided step-daughter with Medicare.gov 5 star list for HH in the [place] area and ask that she provide referrals as the pt gets closer to DC.
Pt is not ready for discharge at this time
Plan: DC home with VN services Will follow for additional DC needs
Initialized on 10/21/25 15:05 - END OF NOTE
--- NOTE | 2025-10-22 10:34 | W.PN.GS2 ---
Addendum entered and electronically signed by Eddie Thomas MD 10/22/25 10:49:
I saw and examined the patient.
The Magneto Electrician's note was reviewed and I agree with the note.
Comment: Brown stool in the appliance, belly soft, approp ttp, incisions cdi, NGT DC'ed, trial CLD. Cont abx
Original Note:
Today's Communication / Plan
-
d/c NGT, start CLD
Assessment / Plan
-
85 yo female with h/o lung ca on chemo (LD 10/12/25) and XRT presenting with perforated sigmoid diverticulitis now POD #5 Baylee's procedure
AFVSS
NGT with clear outputs
Passing stools via stoma
No leukocytosis/fevers. H/H decreased from prior, suspect secondary to hemodilution/recent chemo
thrombocytopenia present, trending down
Cr normalized
Hypophosphatemia/hypokalemia. Mg low normal
Plan:
Replace lytes, IV and PO
c/w PPI
D/C NGT, start on CLD and PO meds
Stoma nurse consulted for stoma teaching
C/W IV zosyn (anticipate 7 day course)
C/W IVF until good po intake
Analgesics with prn narcotics and scheduled tylenol
OOB as able, PT/OT consult
Medical management as per primary team
SCDs for VTE ppx, heparin sq was held d/t thrombocytopenia
Subjective Data
-
Date of Service: October 22, 2025
Pt seen and examined at bedside with Dr. Thomas. Denies n/v. Voiding well. Minimal post op pain.
Objective Data
-
Intake and Output
10/21/25 10/22/25 10/23/25
06:59 06:59 06:59
Intake Total 3190 / 4280 1890 / 1890 570 / 570
Output Total 725 / 1125 1040 / 1040 350 / 350
Balance 2465 / 3155 850 / 850 220 / 220
Intake:
Oral fluids 240 / 240 120 / 120 480 / 480
IV fluids (Total) 2250 / 3150 1530 / 1530
IV piggybacks 610 / 710 150 / 150
Amount instilled into GI Tube ( 90 / 180 90 / 90 90 / 90
Total)
[place] Sump 90 / 180 90 / 90 90 / 90
Output:
Drain Output (Total) 40 40
Right Abdomen Ronny-Hadley 40 40
Gastrointestinal tube output ( 700 / 1100 1000 / 1000 350 / 350
Total)
[place] Sump 700 / 1100 1000 / 1000 350 / 350
Other:
How many times incontinent 1
SMALL amount urine
Number of approximated SMALL 8
amounts of urine
Number of approximated MODERATE 1 1
amounts of urine
Vital Signs
Temp Pulse Resp BP Pulse Ox
97.7 F 99 18 186/79 97
10/22/25 07:40 10/22/25 07:40 10/22/25 07:40 10/22/25 08:07 10/22/25 07:40
Lab Results
10/22/25 07:37
10/22/25 07:37
Calcium 7.9 mg/dl (8.4-10.2) L 10/22/25 07:37
Phosphorus 1.8 mg/dl (2.5-4.5) L 10/22/25 07:37
Magnesium 1.7 mg/dl (1.6-2.3) 10/22/25 07:37
Total Bilirubin 1.0 mg/dl (0.2-1.3) 10/17/25 16:05
AST 24 U/L (14-36) 10/17/25 16:05
ALT 21 U/L (0-35) 10/17/25 16:05
Alkaline Phosphatase 63 U/L (38-126) 10/17/25 16:05
Total Protein 6.4 g/dl (6.3-8.2) 10/17/25 16:05
Albumin 3.7 g/dl (3.5-5.0) 10/17/25 16:05
Physical Exam
-
GENERAL/NEURO: Awake, Alert, no distress
CHEST: Unlabored breathing on RA
ABDOMEN: Soft, appropriately tender, mildly distended, stoma pink patent and productive of stool, some flatus. DEONTE serosanguineous. NG tube with light gastric output
Patient has a long catheter: No
Patient has a central line: No
[2025-10-22] MEDS: MAGNESIUM SULFATE 100 IV (11:29)
[2025-10-22] MEDS: NORVASC 5 MG PO (11:31)
[2025-10-22] MEDS: COZAAR 50 MG PO (11:31)
[2025-10-22] MEDS: KCL 40 MEQ PO (11:31)
[2025-10-22] MEDS: TYLENOL 650 MG PO ×3 (11:31→23:51)
--- NOTE | 2025-10-22 11:32 | CM ---
Addendum entered by Cherie Mixon 10/22/25 11:54:
After speaking with step-daughter CM [facility] and [facility]. IF Pt recommends SNF then CM will have that discussion with the pt and Step-dtr
Plan:Home with VN vs SNF. Will watch for PT rec
Original Note:
Met with pt bedside.
Discussed the possibility that she will need VN at discharge. She understands that the decision to need VN will be made closer to discharge and PT evaluation at that time will be considered.
She understands that she can cx the referral at any time. LM with step-daughter to see if she has made VN choices for referral.
Plan: Home with support services as need.
--- NOTE | 2025-10-22 12:17 | W.PN.HOSP.TC ---
Today's Communication/Plan
-
Monitor vitals
See plan
Restart p.o. amlodipine, losartan, bisoprolol
Make metoprolol as needed only for tachycardia
PT
Diet per surgery
Replete potassium, magnesium, phosphorus
Assessment / Plan
Assessment / Plan
85-year-old female presented to the hospital with abdominal pain
EKG-sinus rhythm anterior infarct age undetermined
Chest x-ray-NG tube, mild pulmonary edema. 4.1 cm right upper lobe mass likely cancer.
CT abdomen and pelvis 10/17/2025-new moderate free air and free fluid in the abdomen and pelvis concerning for perforated viscus. Findings suggestive of mild mid sigmoid colon acute diverticulitis. Probable reactive small bowel in the pelvis and
small bowel ileus. Several tiny pockets of air in the right lower quadrant and free fluid. Acute recommend ascites with perforation cannot be excluded. No evidence of abscess. Prior cholecystectomy. Intrahepatic biliary dilatation. Bilateral
cortical renal scarring. Small hiatal hernia. Hepatomegaly.
HEENT: anicteric,pink conjuctivae
CVS: S1-S2 normal
Chest: CTA B/L, decreased at bases.
Abdomen: Midline incision with Aquacel, Colostomy bag
Extremities: No edema
# Sepsis secondary to perforated acute diverticulitis
Lactic acidosis resolved
Status post open Baylee procedure-partial colectomy with end colostomy done by Dr. Mosher on 10/17/2025
Continue postoperative care
Now off NG tube, started on clears. Surgery following
Intraoperative cultures not available. Blood cultures neg
Castro discontinued
Continue IV Zosyn
Hypokalemia
Replete
Hypophosphatemia
Replete
# Mild hyponatremia-better
# Thrombocytopenia-possibly effects from recent chemo but hold heparin and also check HIT panel even though suspicion is low
If platelet continues to decrease then may need hematology evaluation.
# Thrush- Nystatin
# Acute hypoxic resp insufficiency- Off O2. Continue IS
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 Radiation Rx started 10/15/25. At the
completion if Chemo Durvalumab planned for 1 year .
# Hypertension-now on clears. Restart losartan, amlodipine and bisoprolol. Make metoprolol currently as needed only for heart rate
# Hyperlipidemia/atherosclerosis on rosuvastatin as outpatient
# MINH on CKD stage III-resolved
# Insomnia on trazodone as outpatient
# History of carotid stenosis with right CEA in the past
# GERD/hiatal hernia-PPI
# Osteoporosis
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
# Ex smoker
# DVT prophylaxis-SCD's; sub q hep on hold 2/ thrombocytopenia
# Full code
Dr. Cano was updated by Dr. Royal about patient's hospital stay and course.
I spent a total of 52 minutes with the patient or on the floor. More than 50% of this time involved counseling and coordination of care.
Anticipated Discharge: > 48 hours
Subjective/Interval History
-
Date of Service: October 22, 2025
Denies pain
Objective Data
-
Labs:
Laboratory Results
10/22/25
07:37
WBC 5.7
Hgb 10.2 L
Hct 32.0 L
Plt Count 52 L D
Sodium 141
Potassium 3.2 L
Chloride 108 H
Carbon Dioxide 29
BUN 20 H
Creatinine 0.9
Glucose 144 H
Calcium 7.9 L
Vital Signs:
Vital Signs
Temp Pulse Resp BP Pulse Ox
97.4 F 114 18 179/77 97
10/22/25 11:25 10/22/25 11:25 10/22/25 11:25 10/22/25 11:25 10/22/25 11:25
I&O
10/21/25 10/22/25 10/23/25
06:59 06:59 06:59
Intake Total 3190 / 4280 1890 / 1890 930 / 930
Output Total 725 / 1125 1040 / 1040 350 / 350
Balance 2465 / 3155 850 / 850 580 / 580
--- NOTE | 2025-10-22 12:23 | VNURNOTE ---
Addendum entered by Tatyana Ohara RN 10/25/25 13:24:
Home Health Liaison met with patient at bedside to discuss [facility] nurse/therapy, visits, schedule and homebound status. Patient is agreeable and understands that visits at home will be 2-3 x per week to assess and teach medical management.
Patient is aware that [facility] will contact them for start of care within a few days after discharge from . Provided contact number for [facility].
[facility] referral accepted in [facility].
Original Note:
Chart reviewed. Per CM notes, SNF v. VN.
PT/OT evals pending. Will speak with pt/ family once DC plan is clearer.
[2025-10-22] MEDS: LOPRESSOR IV (13:26)
[2025-10-22] MEDS: POTASSIUM PHOSPHATE 259.0909 MEQ IV (13:27)
[2025-10-22] MEDS: D5LR IV (19:30)
[2025-10-22] MEDS: TYLENOL PO (21:26)
[2025-10-22] MEDS: ZEBETA 10 MG PO (21:27)
[2025-10-22] MEDS: DESYREL 100 MG PO (21:27)
[2025-10-23 04:21] VITALS: BP 142/67
[2025-10-23] MEDS: TYLENOL PO (05:00)
[2025-10-23] MEDS: ZOSYN 50 IV ×3 (05:41→18:10)
[2025-10-23 07:32] LABS: Hematocrit 28.0 % (37.0-47.0); Hemoglobin 9.3 g/dL (12.0-16.0); Mean Corp Hgb Conc. 33.2 g/dL (33.0-37.0); Mean Corpuscular Volume 88.6 fL (81.0-99.0); Platelet Count 34 10^3/uL (130-400); Red Cell Dist. Width 14.5 % (11.5-14.5)
[2025-10-23 07:56] VITALS: BP 137/53
[2025-10-23 08:31] LABS: Blood Urea Nitrogen 19 mg/dl (7-17); Calcium 7.7 mg/dl (8.4-10.2); Carbon Dioxide 29 mmol/L (22-30); Chloride 106 mmol/L (98-107); Estimated Creatinine Clearance 28 ml/min; Glucose 87 mg/dl (70-99); Potassium 3.7 mmol/L (3.5-5.1); Sodium 136 mmol/L (135-145); eGFR 49.86
[2025-10-23] MEDS: MYCOSTATIN ORAL SUSPENSION 5 ML PO ×4 (08:32→21:46)
[2025-10-23] MEDS: TYLENOL 650 MG PO ×4 (08:32→20:24)
[2025-10-23] MEDS: PROTONIX IV 40 MG IV (08:33)
[2025-10-23] MEDS: FOLVITE 1 MG PO (08:33)
[2025-10-23] MEDS: NORVASC 5 MG PO (08:33)
[2025-10-23] MEDS: CRESTOR 5 MG PO (08:33)
[2025-10-23] MEDS: COZAAR 50 MG PO (08:33)
[2025-10-23] MEDS: NSS (PRESERVATIVE FREE) 10 ML IV (08:34)
[2025-10-23] MEDS: ZOFRAN 4 MG IV ×2 (08:38→20:24)
--- NOTE | 2025-10-23 10:39 | W.PN.GS2 ---
Today's Communication / Plan
-
full liquids
Assessment / Plan
-
85 yo female with h/o lung ca on chemo (LD 10/12/25) and XRT presenting with perforated sigmoid diverticulitis now POD #6 Baylee's procedure
AFVSS
Passing stools/flatus via stoma
No leukocytosis/fevers. H/H decreased from prior, suspect secondary to hemodilution/recent chemo
thrombocytopenia present, trending down (HIT neg)
Cr mildly elevated
Hypophosphatemia/hypokalemia resolved with IV/PO replacement
Plan:
Advance to FLD
c/w PPI
Stoma nurse following for stoma teaching
C/W IV zosyn d 6/
Analgesics with prn narcotics and scheduled tylenol. No NSAIDs given elevated Cr.
OOB as able, PT/OT consult
Medical management as per primary team
May need oncology eval given ongoing anemia/thrombocytopenia
SCDs for VTE ppx, heparin sq was held d/t thrombocytopenia
Subjective Data
-
Date of Service: October 23, 2025
Pt seen and examined at bedside. Coughing up a lot of phlegmon with some nausea related to this. Pain to lower abdomen present. Lots of stoma outputs overnight, needed to change bag/appliance.
Objective Data
-
Intake and Output
10/22/25 10/23/25 10/24/25
06:59 06:59 06:59
Intake Total 1890 / 1890 1630 / 1630
Output Total 1040 / 1040 1030 / 1030
Balance 850 / 850 600 / 600
Intake:
Oral fluids 120 / 120 480 / 480
IV fluids (Total) 1530 / 1530 600 / 600
IV piggybacks 150 / 150 460 / 460
Amount instilled into GI Tube ( 90 / 90 90 / 90
Total)
[place] Sump 90 / 90 90 / 90
Output:
Liquid stool amount 600 / 600
Colostomy 600 / 600
Drain Output (Total) 40 / 40 80 / 80
Right Abdomen Ronny-Hadley 40 / 40 80 / 80
Gastrointestinal tube output ( 1000 / 1000 350 / 350
Total)
[place] Sump 1000 / 1000 350 / 350
Other:
Number of approximated SMALL 1
amounts of urine
Number of approximated MODERATE 1 1
amounts of urine
Vital Signs
Temp Pulse Resp BP Pulse Ox
98.5 F 76 16 137/53 98
10/23/25 07:56 10/23/25 07:56 10/23/25 07:56 10/23/25 07:56 10/23/25 07:56
Lab Results
10/23/25 07:00
10/23/25 07:00
Calcium 7.7 mg/dl (8.4-10.2) L 10/23/25 07:00
Phosphorus 3.1 mg/dl (2.5-4.5) 10/23/25 07:00
Magnesium 1.7 mg/dl (1.6-2.3) 10/22/25 07:37
Total Bilirubin 1.0 mg/dl (0.2-1.3) 10/17/25 16:05
AST 24 U/L (14-36) 10/17/25 16:05
ALT 21 U/L (0-35) 10/17/25 16:05
Alkaline Phosphatase 63 U/L (38-126) 10/17/25 16:05
Total Protein 6.4 g/dl (6.3-8.2) 10/17/25 16:05
Albumin 3.7 g/dl (3.5-5.0) 10/17/25 16:05
Physical Exam
-
NAD
ABD soft, expected TTP to lower abdomen, ND
Stoma pink/viable and productive of stool/flatus
DEONTE with SSF
Patient has a long catheter: No
Patient has a central line: No
[2025-10-23 11:28] VITALS: BP 134/47
[2025-10-23] MEDS: ROXICODONE 5 MG PO ×2 (11:50→20:24)
--- NOTE | 2025-10-23 14:33 | W.PN.HOSP.TC ---
Today's Communication/Plan
-
Monitor vital signs and see plan
Continue with full liquid per surgery
Hematology evaluation
Assessment / Plan
Assessment / Plan
85-year-old female presented to the hospital with abdominal pain
EKG-sinus rhythm anterior infarct age undetermined
Chest x-ray-NG tube, mild pulmonary edema. 4.1 cm right upper lobe mass likely cancer.
CT abdomen and pelvis 10/17/2025-new moderate free air and free fluid in the abdomen and pelvis concerning for perforated viscus. Findings suggestive of mild mid sigmoid colon acute diverticulitis. Probable reactive small bowel in the pelvis and
small bowel ileus. Several tiny pockets of air in the right lower quadrant and free fluid. Acute recommend ascites with perforation cannot be excluded. No evidence of abscess. Prior cholecystectomy. Intrahepatic biliary dilatation. Bilateral
cortical renal scarring. Small hiatal hernia. Hepatomegaly.
HEENT: anicteric,pink conjuctivae
CVS: S1-S2 normal
Chest: CTA B/L, decreased at bases.
Abdomen: Midline incision with Aquacel, Colostomy bag
Extremities: No edema
# Sepsis secondary to perforated acute diverticulitis
Lactic acidosis resolved
Status post open Baylee procedure-partial colectomy with end colostomy done by Dr. Mosher on 10/17/2025
Continue postoperative care
Now off NG tube, now on full. Surgery following
Intraoperative cultures not available. Blood cultures neg
Castro discontinued
Continue IV Zosyn
Ostomy teaching ongoing
Hypokalemia
Replete
Hypophosphatemia
Replete
# Mild hyponatremia-better
# Thrombocytopenia-possibly effects from recent chemo but hold heparin and also check HIT panel even though suspicion is low
Hematology evaluation
# Thrush- Nystatin
# Acute hypoxic resp insufficiency- Off O2. Continue IS
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 Radiation Rx started 10/15/25. At the
completion if Chemo Durvalumab planned for 1 year .
# Hypertension-Restarted losartan, amlodipine and bisoprolol. Make metoprolol currently as needed only for heart rate
# Hyperlipidemia/atherosclerosis on rosuvastatin as outpatient
# MINH on CKD stage III-resolved
# Insomnia on trazodone as outpatient
# History of carotid stenosis with right CEA in the past
# GERD/hiatal hernia-PPI
# Osteoporosis
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
# Ex smoker
# DVT prophylaxis-SCD's; sub q hep on hold 12/06 thrombocytopenia
# Full code
Dr. Cano was updated by Dr. Royal about patient's hospital stay and course.
I spent a total of 53 minutes with the patient or on the floor. More than 50% of this time involved counseling and coordination of care.
Anticipated Discharge: 24 - 48 hours
Subjective/Interval History
-
Date of Service: October 23, 2025
Has some discomfort
Objective Data
-
Labs:
Laboratory Results
10/23/25
07:00
WBC 5.7
Hgb 9.3 L
Hct 28.0 L
Plt Count 34 L D
Sodium 136
Potassium 3.7
Chloride 106
Carbon Dioxide 29
BUN 19 H
Creatinine 1.1 H
Glucose 87
Calcium 7.7 L
Vital Signs:
Vital Signs
Temp Pulse Resp BP Pulse Ox
98.8 F 74 17 134/47 99
10/23/25 11:28 10/23/25 11:28 10/23/25 11:28 10/23/25 11:28 10/23/25 11:28
I&O
10/22/25 10/23/2525
06:59 06:59 06:59
Intake Total 1890 / 1890 1630 / 1630 100 / 100
Output Total 1040 / 1040 1030 / 1030
Balance 850 / 850 600 / 600 100 / 100
[2025-10-23] MEDS: D5LR 1000 IV (14:51)
[2025-10-23 15:46] VITALS: BP 153/67
[2025-10-23] MEDS: DESYREL 100 MG PO (21:46)
[2025-10-23] MEDS: ZEBETA 10 MG PO (21:46)
[2025-10-23 23:12] VITALS: BP 118/44
[2025-10-24] MEDS: TYLENOL 650 MG PO ×6 (00:14→23:06)
[2025-10-24] MEDS: ZOSYN 50 IV ×5 (00:14→23:06)
[2025-10-24 07:44] LABS: Blood Urea Nitrogen 20 mg/dl (7-17); Calcium 7.3 mg/dl (8.4-10.2); Carbon Dioxide 26 mmol/L (22-30); Chloride 105 mmol/L (98-107); Estimated Creatinine Clearance 26 ml/min; Glucose 104 mg/dl (70-99); Potassium 3.5 mmol/L (3.5-5.1); Sodium 133 mmol/L (135-145); eGFR 44.91
[2025-10-24 07:54] LABS: Hematocrit 26.4 % (37.0-47.0); Hemoglobin 8.5 g/dL (12.0-16.0); Mean Corp Hgb Conc. 32.2 g/dL (33.0-37.0); Mean Corpuscular Volume 87.4 fL (81.0-99.0); Red Cell Dist. Width 14.4 % (11.5-14.5)
[2025-10-24 08:05] VITALS: BP 142/54
[2025-10-24 08:17] LABS: Nucleated Red Blood Cells % 0 %
[2025-10-24 08:18] LABS: Platelet Count 29 10^3/uL (130-400)
[2025-10-24] MEDS: MYCOSTATIN ORAL SUSPENSION 5 ML PO ×4 (09:37→21:39)
[2025-10-24] MEDS: NORVASC 5 MG PO (09:38)
[2025-10-24] MEDS: CRESTOR 5 MG PO (09:38)
[2025-10-24] MEDS: COZAAR 50 MG PO (09:38)
[2025-10-24] MEDS: FOLVITE 1 MG PO (09:38)
[2025-10-24] MEDS: PROTONIX 40 MG PO (09:38)
[2025-10-24] MEDS: ROXICODONE 5 MG PO ×2 (09:45→20:15)
--- NOTE | 2025-10-24 10:18 | W.PN.GS2 ---
Addendum entered and electronically signed by Miky Jama MD 10/24/25 15:34:
Patient seen and examined in follow-up this afternoon with surgical AQUACULTURIST.
Patient feeling a bit better. Requesting eggs rather than full liquid diet
AFVSS
NAD AAO x 3
Abdomen softly distended with some tympany but not tensely distended.
Incision with clean dressings
Left-sided ostomy with pink mucosa and liquid stool/flatus
A/P: Cautious dietary advancement to low residue
Thrombocytopenia, anemia noted likely reflective of history of lung cancer on chemotherapy -oncology was consulted and evaluated patient today. No signs of active bleeding continue to monitor closely
Patient's daughter updated by surgical AQUACULTURIST
Original Note:
Today's Communication / Plan
-
c/w fld
oncology evaluation
Assessment / Plan
-
85 yo female with h/o lung ca on chemo (LD 10/12/25) and XRT presenting with perforated sigmoid diverticulitis now POD #7 Baylee's procedure
AFVSS
Passing stools/flatus via stoma
No leukocytosis/fevers.
Worsening anemia/thrombocytopenia
Cr mildly elevated, trending up
Tolerating fulls and passing flatus/nonbloody stool via stoma but with some distention/tympany
Plan:
c/w FLD, add supplements bid
c/w PPI
Stoma nurse following for stoma teaching
C/W IV zosyn d 05/10
Analgesics with prn narcotics and scheduled tylenol. No NSAIDs given elevated Cr.
OOB as able, PT/OT consult
Medical management as per primary team
Oncology eval pending
SCDs for VTE ppx, heparin sq was held d/t thrombocytopenia
Subjective Data
-
Date of Service: October 24, 2025
Pt seen and examined at bedside. Tolerating diet. Abdominal pain present but gradually improving. Bloating present. Some rectal pressure. Denies n/v.
Objective Data
-
Intake and Output
10/23/25 10/24/25 10/25/25
06:59 06:59 06:59
Intake Total 1630 / 1630 1120 / 1120
Output Total 1030 / 1030 380 / 380
Balance 600 / 600 740 / 740
Intake:
Oral fluids 480 / 480 420 / 420
IV fluids (Total) 600 / 600 500 / 500
IV piggybacks 460 / 460 200 / 200
Amount instilled into GI Tube ( 90 / 90
Total)
Brandon Sump 90 / 90
Output:
Liquid stool amount 600 / 600 300 / 300
Colostomy 600 / 600 300 / 300
Drain Output (Total) 80 / 80 80 / 80
Right Abdomen Ronny-Hadley 80 / 80 80 / 80
Gastrointestinal tube output ( 350 / 350
Total)
Brandon Sump 350 / 350
Other:
Number of approximated SMALL 1 2
amounts of urine
Number of approximated MODERATE 1 1
amounts of urine
Vital Signs
Temp Pulse Resp BP Pulse Ox
98.1 F 70 16 142/54 98
10/24/25 08:05 10/24/25 08:05 10/24/25 08:05 10/24/25 08:05 10/24/25 08:05
Lab Results
10/24/25 06:17
10/24/25 06:17
Calcium 7.3 mg/dl (8.4-10.2) L 10/24/25 06:17
Phosphorus 3.1 mg/dl (2.5-4.5) 10/23/25 07:00
Magnesium 1.7 mg/dl (1.6-2.3) 10/22/25 07:37
Total Bilirubin 1.0 mg/dl (0.2-1.3) 10/17/25 16:05
AST 24 U/L (14-36) 10/17/25 16:05
ALT 21 U/L (0-35) 10/17/25 16:05
Alkaline Phosphatase 63 U/L (38-126) 10/17/25 16:05
Total Protein 6.4 g/dl (6.3-8.2) 10/17/25 16:05
Albumin 3.7 g/dl (3.5-5.0) 10/17/25 16:05
Physical Exam
-
NAD
ABD soft, expected TTP, mild distention, tympanitic
Stoma pink/viable and productive of stool/flatus
DEONTE with SSF, midline incision with intact marisa, dressing changed
Patient has a long catheter: No
Patient has a central line: No
--- NOTE | 2025-10-24 11:43 | W.PN.HOSP.TC ---
Today's Communication/Plan
-
Monitor vital signs see plan
Monitor platelet
Hematology to see
Continue with diet per surgery
Monitor ostomy
abx; dc tomorrow
Assessment / Plan
Assessment / Plan
85-year-old female presented to the hospital with abdominal pain
EKG-sinus rhythm anterior infarct age undetermined
CT abdomen and pelvis 10/17/2025-new moderate free air and free fluid in the abdomen and pelvis concerning for perforated viscus. Findings suggestive of mild mid sigmoid colon acute diverticulitis. Probable reactive small bowel in the pelvis and
small bowel ileus. Several tiny pockets of air in the right lower quadrant and free fluid. Acute recommend ascites with perforation cannot be excluded. No evidence of abscess. Prior cholecystectomy. Intrahepatic biliary dilatation. Bilateral
cortical renal scarring. Small hiatal hernia. Hepatomegaly.
HEENT: anicteric,pink conjuctivae
CVS: S1-S2 normal
Chest: CTA B/L, decreased at bases.
Abdomen: Midline incision with Aquacel, Colostomy bag
Extremities: No edema
# Sepsis secondary to perforated acute diverticulitis
Lactic acidosis resolved
Status post open Baylee procedure-partial colectomy with end colostomy done by Dr. Mosher on 10/17/2025
Continue postoperative care
Now off NG tube, now on full. Surgery following
Intraoperative cultures not available. Blood cultures neg
Castro discontinued
Continue IV Zosyn, DC Zosyn tomorrow
Ostomy teaching ongoing
Hypokalemia
Replete
Hypophosphatemia
Replete
# Mild hyponatremia-better
# Thrombocytopenia-possibly effects from recent chemo but hold heparin and also check HIT panel even though suspicion is low
Platelet continue to decrease, 29 today
Hematology consulted
# Thrush- Nystatin
# Acute hypoxic resp insufficiency- Off O2. Continue IS
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 Radiation Rx started 10/15/25. At the
completion if Chemo Durvalumab planned for 1 year .
# Hypertension-Restarted losartan, amlodipine and bisoprolol. Make metoprolol currently as needed only for heart rate
# Hyperlipidemia/atherosclerosis on rosuvastatin as outpatient
# MINH on CKD stage III-resolved
# Insomnia on trazodone as outpatient
# History of carotid stenosis with right CEA in the past
# GERD/hiatal hernia-PPI
# Osteoporosis
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
# Ex smoker
# DVT prophylaxis-SCD's; sub q hep on hold 12/06 thrombocytopenia
# Full code
Dr. Cano was updated by Dr. Royal about patient's hospital stay and course.
I spent a total of 51 minutes with the patient or on the floor. More than 50% of this time involved counseling and coordination of care.
Anticipated Discharge: 24 - 48 hours
Subjective/Interval History
-
Date of Service: October 24, 2025
Denies pain
Objective Data
-
Labs:
Laboratory Results
10/24/25
06:17
WBC 6.1
Hgb 8.5 L
Hct 26.4 L
Plt Count 29 L*
Sodium 133 L
Potassium 3.5
Chloride 105
Carbon Dioxide 26
BUN 20 H
Creatinine 1.2 H
Glucose 104 H
Calcium 7.3 L
Vital Signs:
Vital Signs
Temp Pulse Resp BP Pulse Ox
98.1 F 70 16 142/54 98
10/24/25 08:05 10/24/25 08:05 10/24/25 08:05 10/24/25 08:05 10/24/25 08:05
I&O
10/23/25 10/24/25 10/25/25
06:59 06:59 06:59
Intake Total 1630 / 1630 1120 / 1120
Output Total 1030 / 1030 380 / 380
Balance 600 / 600 740 / 740
--- NOTE | 2025-10-24 12:49 | CON.ONC ---
Consultation
-
Date Consultation Requested: 10/23/25
Date Consultation Performed: 10/24/25
Requesting Provider: Gurpreet Benjamin MD
Performing Provider: Miriam Argueta MD
Reason for Consultation: Non-small cell lung cancer stage III, anemia, thrombocytopenia
Impression
Impression
Non-small cell lung CA, stage III, recently started chemo/RT
Perforated diverculitis now s/p resection and ostomy placement
Anemia
Thrombocytopenia, HIT KLARISSA negative
Plan
Plan
Suspect cytopenias are chemo-related given time course since treatment. Counts should be begin to rebound in next day or two.
Can resume radiation as outpt but will need some time for diverticulitis to improve before resuming chemo.
Case d/w step-daughter Monse Short by phone.
Patient History
History of Present Illness
85 yo woman with Stage III non-small cell lung cancer. She started carboplatin and Alimta on October 14, with addition of radiation on October 15. Her initial staging PET scan in late October had shown an area of possible diverticulitis but she
did not have any concerning symptoms. However, within a day or 2 of her first chemo treatment she developed abdominal pain and came to the ER where she was found to have perforated diverticulitis. She underwent immediate resection and now has an
ostomy in place. Blood counts have been falling. HIT KLARISSA has already returned negative. Currently, the ostomy is functioning well. Denies bleeding. Counts were normal on admission but have been steadily trending down. Today, Hgb 8.5, Plt 29K.
Past-Medical/Surgical History
Past Medical History
HTN, Hypercholesterolemia and Other (CKD 3b)
Past Surgical History
Appendectomy, Cholecystectomy, Orthopedic (Right TKA), Tonsilectomy and Other (Right CEA)
Social History
Tobacco: Former Smoker (Stopped 30 years ago)
Alcohol: Former
Drug: None
Personal:
Living: With Family
Family History
Family History: Reviewed & Not Pertinent
Patient Medication
�Medication �Instructions �Recorded �Confirmed �Last Taken �Type
bisoprolol fumarate 10 mg tablet 10 mg PO HS Blood Pressure 12/30/23 10/17/25 10/16/25 History
trazodone 100 mg tablet 100 mg PO HS sleep 12/30/23 10/17/25 10/16/25 History
amlodipine 5 mg tablet 5 mg PO DAILY Blood Pressure 08/12/25 10/17/25 10/17/25 History
aspirin 81 mg tablet,delayed 81 mg PO DAILY Blood Clot 08/12/25 10/17/25 10/17/25 History
release Prevention/Tx
biotin 2,500 mcg capsule 2,500 mcg PO DAILY Supplement 08/12/25 10/17/25 10/17/25 History
losartan 50 mg tablet 50 mg PO DAILY Blood Pressure 08/12/25 10/17/25 10/17/25 History
gycebpja-ztkk-gpyz 8 mg-folic 400 1 tab PO DAILY Supplement 08/12/25 10/17/25 10/17/25 History
mcg-K 50 mcg-lutein 300 mcg tablet
(Centrum Silver Women)
rosuvastatin 5 mg tablet 5 mg PO DAILY High Cholesterol 08/12/25 10/17/25 10/17/25 History
acetaminophen 325 mg tablet 650 mg PO DAILYPRN PRN mild pain 10/17/25 10/17/25 10/17/25 History
aluminum-mag hydroxide-simethicone 5 ml PO DAILYPRN PRN upset stomach 10/17/25 10/17/25 10/17/25 History
200 mg-200 mg-20 mg/5 mL oral susp
docusate sodium 100 mg tablet 200 mg PO DAILYPRN PRN constipation 10/17/25 10/17/25 10/17/25 History
fluticasone propionate 50 1 spray intranasal DAILY Congestion 10/17/25 10/17/25 10/17/25 History
mcg/actuation nasal
spray,suspension
folic acid 1 mg tablet 1 mg PO DAILY Supplement 1210/17/25 10/17/25 History
lidocaine-prilocaine 2.5 %-2.5 % 1 applic topical DAILYPRN PRN port 10/17/25 10/17/25 Unknown History
topical cream access
polyvinyl alcohol 1.4 % eye drops 1 drp ophthalmic (eye) DAILY PRN 10/17/25 10/17/25 Unknown History
dry eyes
Active Medications
Generic Name Dose Route Start Last Admin
Trade Name Freq PRN Reason Stop Dose Admin
Acetaminophen 650 mg 10/22/25 12:00 10/24/25 09:37
Acetaminophen 325 Mg Tablet PO 11/19/25 11:59 650 mg
Q4HWA IAM Administration
Amlodipine Besylate 5 mg 10/22/25 11:00 10/24/25 09:38
Amlodipine 5 Mg Tablet PO 11/19/25 10:59 5 mg
DAILY IAM Administration
Bisoprolol Fumarate 10 mg 10/22/25 22:00 10/23/25 21:46
Bisoprolol Fumarate (Zebeta) 10 Mg Tablet PO 11/19/25 21:59 10 mg
HS IAM Administration
Folic Acid 1 mg 10/23/25 08:00 10/24/25 09:38
Folic Acid 1 Mg Tablet PO 11/20/25 07:59 1 mg
DAILY IAM Administration
Hydralazine HCl 5 mg 10/19/25 10:48 10/22/25 08:07
Hydralazine 20 Mg/Ml Vial IV 11/16/25 10:47 5 mg
Q6HPRN PRN Administration
SBP over 160 mm Hg
Hydromorphone HCl 0.5 mg 10/18/25 00:04 10/22/25 02:27
Hydromorphone 0.5 Mg/0.5 Ml Syringe IV 11/01/25 00:03 0.5 mg
Q4HPRN PRN Administration
severe pain
Piperacillin Sod/Tazobactam Sod 2.25 grams in 50 mls @ 100 mls/hr 10/18/25 00:00 10/24/25 05:41
Zosyn IV 10/25/25 06:00 50 mls
Q6H IAM Administration
Losartan Potassium 50 mg 10/22/25 11:00 10/24/25 09:38
Losartan 50 Mg Tablet PO 11/19/25 10:59 50 mg
DAILY IAM Administration
Metoprolol Tartrate 5 mg 10/22/25 12:24
Metoprolol 5 Mg/5 Ml Vial IV 11/19/25 12:23
Q6HPRN PRN
HR>120
Nystatin 5 ml 10/20/25 13:00 10/24/25 09:37
Nystatin Oral Suspension 500,000 Units/5 Ml PO 11/17/25 12:59 5 ml
QID IAM Administration
Ondansetron HCl 4 mg 10/18/25 00:04 10/23/25 20:24
Ondansetron 4 Mg/2 Ml Vial IV 11/15/25 00:03 4 mg
Q6HPRN PRN Administration
NAUSEA/VOMITING
Oxycodone HCl 5 mg 10/23/25 10:42 10/24/25 09:45
Oxycodone 5 Mg Regular Release Tablet PO 11/06/25 10:41 5 mg
Q4HPRN PRN Administration
moderate pain
Pantoprazole Sodium 40 mg 10/24/25 08:00 10/24/25 09:38
Pantoprazole 40 Mg Delayed Release Tablet PO 11/21/25 07:59 40 mg
DAILY IAM Administration
Phenol 0 spray 10/18/25 10:01 10/19/25 19:15
Chloraseptic (1.4% Phenol) Throat [place] PO 11/15/25 10:00 1 spray
Q2HPRN PRN Administration
sore throat
Rosuvastatin Calcium 5 mg 10/23/25 08:00 10/24/25 09:38
Rosuvastatin (Crestor) 5 Mg Tablet PO 11/20/25 07:59 5 mg
DAILY IAM Administration
Sodium Chloride 0 flush 10/18/25 01:00
Sodium Chloride 0.9% (Flush) Syringe IV 11/15/25 00:59
PER PROTOCOL IAM
Trazodone HCl 100 mg 10/22/25 22:00 10/23/25 21:46
Trazodone 100 Mg Tablet PO 11/19/25 21:59 100 mg
HS IAM Administration
Physical Exam
-
General: Well Developed, Well Nourished and No Apparent Distress
HEENT: Moist Mucous Membranes; Negative Jaundice
Cardiology: Normal Sinus Rhythm, S1 and S2
Pulmonary: Clear; Negative Wheezes or Rales
GI: Soft and Other (functioning ostomy)
Musculoskeletal: No Clubbing, No Cyanosis and No Edema
Extremities: Pulses Present; Negative Phlebitic Signs
Neurology: Non Focal
Skin: Warm and Dry
Hematologic / Lymphatic: No Lymphadenopathy and No Petechiae
Psych: Calm and Intact Judgement/Insight
Labs
Lab Results
WBC 6.1 10^3/uL (4.8-10.8) 10/24/25 06:17
RBC 3.02 10^6/uL (4.20-5.40) L 10/24/25 06:17
Hgb 8.5 g/dL (12.0-16.0) L 10/24/25 06:17
Hct 26.4 % (37.0-47.0) L 10/24/25 06:17
MCV 87.4 fL (81.0-99.0) 10/24/25 06:17
MCH 28.1 pg (27.0-31.0) 10/24/25 06:17
MCHC 32.2 g/dL (33.0-37.0) L 10/24/25 06:17
RDW 14.4 % (11.5-14.5) 10/24/25 06:17
Plt Count 29 10^3/uL (130-400) L* 10/24/25 06:17
MPV 13.5 fL (7.4-10.4) H 10/24/25 06:17
Abs Immat Gran (auto) 0.1 10^3/uL (0-0.05) H 10/24/25 06:17
Absolute Neuts (auto) 5.2 10^3/uL (1.4-6.5) 10/24/25 06:17
Absolute Lymphs (auto) 0.6 10^3/uL (1.2-3.4) L 10/24/25 06:17
Absolute Monos (auto) 0.2 10^3/uL (0.1-0.6) 10/24/25 06:17
Absolute Eos (auto) 0.0 10^3/uL (0-0.7) 10/24/25 06:17
Absolute Basos (auto) 0.0 10^3/uL (0-0.2) 10/24/25 06:17
Immature Gran % 1.3 % (0-0.5) H 10/24/25 06:17
Neutrophils % 86.0 % (42.2-75.2) H 10/24/25 06:17
Lymphocytes % 9.5 % (20.5-51.1) L 10/24/25 06:17
Monocytes % 2.5 % (1.7-9.3) 10/24/25 06:17
Eosinophils % 0.0 % (0-6) 10/24/25 06:17
Basophils % 0.7 % (0-2) 10/24/25 06:17
Creatinine 1.2 mg/dL (0.6-1.0) H 10/24/25 06:17
Vital Signs
Vital Signs
Temp Pulse Resp BP Pulse Ox
98.1 F 70 16 142/54 98
10/24/25 08:05 10/24/25 08:05 10/24/25 08:05 10/24/25 08:05 10/24/25 08:05
[2025-10-24] MEDS: TYLENOL PO (14:25)
[2025-10-24 15:20] VITALS: BP 130/38
[2025-10-24] MEDS: DESYREL 100 MG PO (21:35)
[2025-10-24] MEDS: ZEBETA 10 MG PO (21:40)
[2025-10-24 23:00] VITALS: BP 112/41
[2025-10-25] MEDS: TYLENOL 650 MG PO ×6 (03:45→23:15)
[2025-10-25] MEDS: ZOSYN 50 IV (05:28)
[2025-10-25 07:55] VITALS: BP 88/52
--- NOTE | 2025-10-25 08:58 | W.PN.ONC2 ---
Today's Communication / Plan
-
.
Impression
Impression
Non-small cell lung CA, stage III, recently started chemo/RT s/p C1 Carbo/Alimta 10/14
Perforated diverticulitis now s/p resection and ostomy placement
Anemia
Thrombocytopenia, HIT KLARISSA negative
Plan
Plan
Suspect cytopenias are chemo-related given time course since treatment. Counts should be begin to rebound in next day or two.
Can resume radiation as outpt but will need some time for diverticulitis to improve before resuming chemo.
daughter at bedside providedd updates and questions answered
Subjective/Objective
Subjective
denies overt bleeding
post operative pain
brown sool output from ostomy
Vital Signs:
Vital Signs
Temp Pulse Resp BP Pulse Ox
97.6 F 72 18 88/52 97
10/25/25 07:55 10/25/25 07:55 10/25/25 07:55 10/25/25 07:55 10/25/25 07:55
Lab Results:
Laboratory Data
WBC 6.1 10^3/uL (4.8-10.8) 10/24/25 06:17
Hgb 8.5 g/dL (12.0-16.0) L 10/24/25 06:17
Plt Count 29 10^3/uL (130-400) L* 10/24/25 06:17
PT 17.4 Sec (11.4-14.6) H 10/18/25 03:24
INR 1.41 10/18/25 03:24
APTT 24.4 Sec (23.4-35.0) 10/18/25 03:24
eGFR 44.91 10/24/25 06:17
Physical Exam
HEENT: No Jaundice
Pulmonary: Other (unlabored)
GI: Other (ostomy)
Extremities: Pulses Present
[2025-10-25 09:51] LABS: Hematocrit 26.8 % (37.0-47.0); Hemoglobin 8.6 g/dL (12.0-16.0); Mean Corp Hgb Conc. 32.1 g/dL (33.0-37.0); Mean Corpuscular Volume 88.4 fL (81.0-99.0); Nucleated Red Blood Cells % 0 %; Platelet Count 32 10^3/uL (130-400); Red Cell Dist. Width 13.9 % (11.5-14.5)
[2025-10-25] MEDS: PROTONIX 40 MG PO (09:56)
[2025-10-25] MEDS: COZAAR PO (09:57)
[2025-10-25] MEDS: CRESTOR 5 MG PO (09:57)
[2025-10-25] MEDS: FOLVITE 1 MG PO (09:57)
[2025-10-25] MEDS: NORVASC PO (09:58)
[2025-10-25] MEDS: MYCOSTATIN ORAL SUSPENSION 5 ML PO ×4 (09:58→21:06)
[2025-10-25] MEDS: ROXICODONE 5 MG PO ×3 (10:05→20:30)
[2025-10-25 10:19] LABS: Blood Urea Nitrogen 23 mg/dl (7-17); Calcium 7.5 mg/dl (8.4-10.2); Carbon Dioxide 26 mmol/L (22-30); Chloride 102 mmol/L (98-107); Estimated Creatinine Clearance 26 ml/min; Glucose 75 mg/dl (70-99); Potassium 3.4 mmol/L (3.5-5.1); Sodium 131 mmol/L (135-145); eGFR 44.91
[2025-10-25 11:03] LABS: Magnesium 1.7 mg/dl (1.6-2.3)
--- NOTE | 2025-10-25 11:28 | WOUNDNOTE ---
[facility] RN note: Patient's colostomy appliance needed to be changed by nursing Saturday and Saturday. Reinstructed patient and DIL Yesica how to empty and change pouch. Pouch changed using Maurilio soft convex cut to fit wafer # [id number], Alex seal and
Maurilio pouch # [id number]. Ostomy supplies left at bedside. Stoma pink and flush. Peristomal skin intact. Coccyx skin discolored dull brown (not new, appears chronic). Silicone border foam changed on sacral/coccyx. Skin on heels intact. Patient has an
air chair cushion and static air overlay. Patient ambulated with walker with PT Rashmi. Plan is rehab or VN. Next appliance change due end of week. Nursing can assist with appliance changes as needed. Discussed with VERNON Haile.
--- NOTE | 2025-10-25 11:52 | W.PN.GS2 ---
Today's Communication / Plan
-
Out of bed and ambulate as able.
Can begin dispo planning, anticipate DC home 10/27. Will need ostomy teaching/supplies/VNA set up.
Assessment / Plan
-
85 yo female with h/o lung ca on chemo (LD 10/12/25) and XRT presenting with perforated sigmoid diverticulitis now POD #8 Baylee's procedure
AFVSS
Passing stools/flatus via stoma
No leukocytosis/fevers.
Worsening anemia/thrombocytopenia
Cr mildly elevated, trending up
Tolerating fulls and passing flatus/nonbloody stool via stoma but with some distention/tympany
Plan:
Low residue diet
c/w PPI
Stoma nurse following for stoma teaching
Can stop antibiotics
Analgesics with prn narcotics and scheduled tylenol. No NSAIDs given elevated Cr.
OOB as able, PT/OT consult
Medical management as per primary team
Oncology eval pending
SCDs for VTE ppx, heparin sq was held d/t thrombocytopenia
Dispo planning
Time Spent
Total Time Spent with Patient (in minutes): 25
Subjective Data
-
Date of Service: October 25, 2025
Interval Events:
No acute events overnight. Slept well. Pain Controlled. Denies Nausea/Vomiting, +bowel function. Tolerating diet.
Objective Data
-
Intake and Output
10/24/25 10/25/25 10/26/25
06:59 06:59 06:59
Intake Total 1120 / 1120 890 / 890
Output Total 380 / 380 285 / 285
Balance 740 / 740 605 / 605
Intake:
Oral fluids 420 / 420 840 / 840
IV fluids (Total) 500 / 500
IV piggybacks 200 / 200 50 / 50
Output:
Liquid stool amount 300 / 300 250 / 250
Colostomy 300 / 300 250 / 250
Drain Output (Total) 80 / 80 35 / 35
Right Abdomen Ronny-Hadley 80 / 80 35 / 35
Other:
Number of approximated SMALL 2 2 1
amounts of urine
Number of approximated MODERATE 1 1
amounts of urine
Vital Signs
Temp Pulse Resp BP Pulse Ox
97.6 F 72 18 88/52 97
10/25/25 07:55 10/25/25 07:55 10/25/25 07:55 10/25/25 07:55 10/25/25 07:55
Lab Results
10/25/25 08:34
10/25/25 08:34
Calcium 7.5 mg/dl (8.4-10.2) L 10/25/25 08:34
Phosphorus 3.0 mg/dl (2.5-4.5) 10/25/25 08:34
Magnesium 1.7 mg/dl (1.6-2.3) 10/25/25 08:34
Total Bilirubin 1.0 mg/dl (0.2-1.3) 10/17/25 16:05
AST 24 U/L (14-36) 10/17/25 16:05
ALT 21 U/L (0-35) 10/17/25 16:05
Alkaline Phosphatase 63 U/L (38-126) 10/17/25 16:05
Total Protein 6.4 g/dl (6.3-8.2) 10/17/25 16:05
Albumin 3.7 g/dl (3.5-5.0) 10/17/25 16:05
Physical Exam
-
GENERAL/NEURO: Awake, Alert, no distress
CHEST: Unlabored breathing on RA
ABDOMEN: Soft, Non-Tender, Non-Distended, DEONTE serosanguineous, removed at bedside.
Patient has a long catheter: No
Patient has a central line: No
--- NOTE | 2025-10-25 11:54 | W.PN.HOSP.TC ---
Today's Communication/Plan
-
labs in AM
CM for possibel STR as ostomy care needed
Assessment / Plan
Assessment / Plan
85yo F with PMHX of Lung CA, HLD, CKD stage 3 came with abdominal pain, CT found signs of diverticulitis with perforation, had surgery with periOP findings of intraperitoneal purulence, Baylee done on 10/18/25 with colostomy. Patient improved on
Abx abnd complated 7 days caurse as indicated by GEnSx and as per recommendations from Up-To-Date since the source control was achieved. Patient completed chemo-RT on 10/12/25. In hospital developed bicytopenia that polishing machine operator helper contributed to recent
chemo.
A/P:
#Sepsis on admission ([facility]) 2/2 Acute complicated diverticulitis with perforation and peritonitis
Completed Zosyn 7 days
PeriOP Cx unfortunately were not sent
Bcx NTD
No fevers
Leukocytosis resolved. Off abx sinc e 10/25/25
s/p Baylee, ostomy functioning, advanced diet
#SKI on CKD stage 3
resolved
#Anemia
#worsening thrombocytopenia
most likely chemo-induced
HIT Ab neg
Hematology advised monitoring and transfusion as needed
#Hypokalemia
#Hypomagnesemia
#Hypophosphatemia
#Mild hyponatremia
replete and follow
#Thrush
Nistatin
#Essential HTN
#ASCVD
#Lung CA
#Insomnia
#Hx of carotid stenosis s/p R CEA
#GERD
#Osteoporosis
cont to follow with established specialists
cont home meds
DVT ppx on SCDs (2/2 thrombocytopenia)
Full code
I have spent at least 58min reviewign chart, test results, communication with consultants and providing direct patient care
Anticipated Discharge: Within 24 hours
Subjective/Interval History
-
Date of Service: October 25, 2025
Objective Data
-
Labs:
Laboratory Results
10/25/25
08:34
WBC 5.5
Hgb 8.6 L
Hct 26.8 L
Plt Count 32 L
Sodium 131 L
Potassium 3.4 L
Chloride 102
Carbon Dioxide 26
BUN 23 H
Creatinine 1.2 H
Glucose 75
Calcium 7.5 L
Vital Signs:
Vital Signs
Temp Pulse Resp BP Pulse Ox
97.6 F 72 18 88/52 97
10/25/25 07:55 10/25/25 07:55 10/25/25 07:55 10/25/25 07:55 10/25/25 07:55
I&O
10/24/25 10/25/25 10/26/25
06:59 06:59 06:59
Intake Total 1120 / 1120 890 / 890
Output Total 380 / 380 285 / 285
Balance 740 / 740 605 / 605
Review of Systems
-
History Source: Patient
All other systems: Reviewed and negative
Physical Exam
-
General: No Apparent Distress
HEENT: Normocephalic
Respiratory: Clear to Auscultation
GI: Soft, Nontender and Ostomy
Musculoskeletal: No Clubbing, No Cyanosis and No Edema
Neuro: Awake, Alert, Oriented and AO x 3
Psych: Calm
[2025-10-25] MEDS: KCL 270 MEQ IV (11:56)
--- NOTE | 2025-10-25 14:54 | CM ---
CM met with pt, spouse and step-dtr Monse bedside
Bedside teaching completed with pt and family with [facility]
They are requesting SNF be arranged for further ostomy care and teaching
PT/OT with [facility] vs no needs
PAC provided and referrals sent to [facility], [facility], [facility], [facility] and [facility] and [facility] have accepted pending bed availability
[facility] running insurance co-pays and checking into availability of ostomy supplies at SNF, will update CM
Per dtr, [facility] would be preference
[facility] 1-2 days for per chart review
Pt will require [facility] auth for SNF for ostomy care/teaching
Discharge Disposition- SNF for new ostomy care and teaching
[2025-10-25] MEDS: MAGNESIUM SULFATE 100 IV (15:31)
[2025-10-25 15:45] VITALS: BP 112/63
[2025-10-25] MEDS: KCL 40 MEQ PO (16:10)
[2025-10-25] MEDS: ZEBETA 10 MG PO (21:05)
[2025-10-25] MEDS: DESYREL 100 MG PO (21:06)
[2025-10-25 23:00] VITALS: BP 93/58
[2025-10-26] MEDS: TYLENOL 650 MG PO ×4 (03:29→21:04)
[2025-10-26] MEDS: ROXICODONE 5 MG PO ×2 (06:43→21:07)
[2025-10-26 06:55] LABS: Fibrinogen 521 MG/DL (199-459)
[2025-10-26 06:58] LABS: Hematocrit 25.6 % (37.0-47.0); Hemoglobin 8.4 g/dL (12.0-16.0); Mean Corp Hgb Conc. 32.8 g/dL (33.0-37.0); Mean Corpuscular Volume 87.4 fL (81.0-99.0); Nucleated Red Blood Cells % 0 %; Platelet Count 46 10^3/uL (130-400); Red Cell Dist. Width 13.5 % (11.5-14.5)
[2025-10-26 07:08] LABS: ALT (SGPT) 32 U/L (0-35); AST (SGOT) 23 U/L (14-36); Albumin 2.1 g/dl (3.5-5.0); Alkaline Phosphatase 84 U/L (38-126); Blood Urea Nitrogen 20 mg/dl (7-17); Calcium 7.7 mg/dl (8.4-10.2); Carbon Dioxide 24 mmol/L (22-30); Chloride 104 mmol/L (98-107); Estimated Creatinine Clearance 28 ml/min; Glucose 90 mg/dl (70-99); Potassium 4.4 mmol/L (3.5-5.1); Sodium 132 mmol/L (135-145); Total Protein 4.4 g/dl (6.3-8.2); eGFR 49.86
[2025-10-26 07:45] VITALS: BP 123/62
[2025-10-26] MEDS: MYCOSTATIN ORAL SUSPENSION 5 ML PO ×4 (08:48→21:07)
[2025-10-26] MEDS: COZAAR 50 MG PO (08:49)
[2025-10-26] MEDS: NORVASC 5 MG PO (08:49)
[2025-10-26] MEDS: CRESTOR 5 MG PO (08:51)
[2025-10-26] MEDS: PROTONIX 40 MG PO (08:51)
[2025-10-26] MEDS: FOLVITE 1 MG PO (08:51)
--- NOTE | 2025-10-26 09:45 | CM ---
Addendum entered by Jacki Ruiz 10/26/25 16:06:
Call with [facility] to follow up on SNF request
Clinicals not received
Clinicals refaxed to [phone]
Bedside update to pt who notes she is hopeful to actually return home, asked CM to call step-dtr
Call with step-dtr/Monse, she noted neither pt nor spouse can care for ostomy at home independently
Would like to continue to pursue SNF as dtr overwhelmed with their care needs
If SNF denial, home care will need to be arranged
Dtr requested intensive ostomy teaching and will likely need private duty nursing resources for hire
Original Note:
CM reviewed pt with attending- possible dc later today
Discussion with SNF admissions/Brandi- pt accepted for admission at [facility] auth initiated with [facility]- clinicals faxed to [phone]
Auth pending- [id number]
Of note, [facility] will need 4x wafers to be sent with pt to SNF
Discharge Disposition- [facility] with new ostomy supplies pending auth
--- NOTE | 2025-10-26 10:43 | W.PN.HOSP.TC ---
Today's Communication/Plan
-
CBC in AM - if no significant further worsening - can Be dc home as per PT/OT
Stoma teaching
corrected Ca is WNL - no need to replete
Assessment / Plan
Assessment / Plan
85yo F with PMHX of Lung CA, HLD, CKD stage 3 came with abdominal pain, CT found signs of diverticulitis with perforation, had surgery with periOP findings of intraperitoneal purulence, Baylee done on 10/18/25 with colostomy. Patient improved on
Abx abnd complated 7 days caurse as indicated by GEnSx and as per recommendations from Up-To-Date since the source control was achieved. Patient completed chemo-RT on 10/12/25. In hospital developed bicytopenia that neuro urologist contributed to recent
chemo.
A/P:
#Sepsis on admission ([facility]) 2/2 Acute complicated diverticulitis with perforation and peritonitis
Completed Zosyn 7 days
PeriOP Cx unfortunately were not sent
Bcx NTD
No fevers
Leukocytosis resolved. Off abx sinc e 10/25/25
s/p Baylee, ostomy functioning, advanced diet
#SKI on CKD stage 3
resolved
#Anemia
#thrombocytopenia
most likely chemo-induced
HIT Ab neg
Hematology advised monitoring and transfusion as needed
#Hypokalemia
#Hypomagnesemia
#Hypophosphatemia
#Mild hyponatremia
replete and follow
#Thrush
Nistatin
#Essential HTN
#ASCVD
#Lung CA
#Insomnia
#Hx of carotid stenosis s/p R CEA
#GERD
#Osteoporosis
cont to follow with established specialists
cont home meds
DVT ppx on SCDs (2/2 thrombocytopenia)
Full code
I have spent at least 58min reviewign chart, test results, communication with consultants and providing direct patient care
Anticipated Discharge: Within 24 hours
Subjective/Interval History
-
Date of Service: October 26, 2025
Objective Data
-
Labs:
Laboratory Results
10/26/25 10/26/25
05:57 05:58
WBC 3.8 L
Hgb 8.4 L
Hct 25.6 L
Plt Count 46 L D
Sodium 132 L
Potassium 4.4 D
Chloride 104
Carbon Dioxide 24
BUN 20 H
Creatinine 1.1 H
Glucose 90
Calcium 7.7 L
Total Bilirubin 0.2
AST 23
ALT 32
Alkaline Phosphatase 84
Vital Signs:
Vital Signs
Temp Pulse Resp BP Pulse Ox
98.0 F 82 16 123/62 98
10/26/25 07:45 10/26/25 07:45 10/26/25 07:45 10/26/25 07:45 10/26/25 07:45
I&O
10/25/25 10/26/25 10/27/25
06:59 06:59 06:59
Intake Total 890 / 890 480 / 480
Output Total 285 / 285 50 / 50
Balance 605 / 605 430 / 430
Review of Systems
-
History Source: Patient
All other systems: Reviewed and negative
Physical Exam
-
General: No Apparent Distress
Respiratory: Clear to Auscultation
Cardiac: Regular Rhythm
GI: Soft, Nontender, Nondistended and Ostomy
Neuro: Awake, Alert, Oriented and AO x 3
Psych: Calm
--- NOTE | 2025-10-26 12:01 | W.PN.GS2 ---
Today's Communication / Plan
-
Dispo planning
Assessment / Plan
-
85 yo female with h/o lung ca on chemo (LD 10/12/25) and XRT presenting with perforated sigmoid diverticulitis now POD #9 Baylee's procedure
Plan:
Okay to DC home today on a low residue diet.
Needs stoma teaching and VNA set up for home.
No need for antibiotics.
Can send home with some tramadol.
Discharge instructions updated.
Patient and daughter agreeable to plan of care above, I will see them in the office in 2 weeks for follow-up.
Time Spent
Total Time Spent with Patient (in minutes): 20
Subjective Data
-
Date of Service: October 26, 2025
Interval Events:
No acute events overnight. Slept well. Pain Controlled. Denies Nausea/Vomiting, +bowel function. Tolerating diet.
Objective Data
-
Intake and Output
10/25/25 10/26/25 10/27/25
06:59 06:59 06:59
Intake Total 890 / 890 480 / 480
Output Total 285 / 285 50 / 50
Balance 605 / 605 430 / 430
Intake:
Oral fluids 840 / 840 480 / 480
IV piggybacks 50 / 50
Output:
Liquid stool amount 250 / 250 50 / 50
Colostomy 250 / 250 50 / 50
Drain Output (Total) 35 / 35
Right Abdomen Ronny-Hadley 35 / 35
Other:
Number of approximated SMALL 2 1
amounts of urine
Number of approximated MODERATE 1 1
amounts of urine
Vital Signs
Temp Pulse Resp BP Pulse Ox
98.0 F 82 16 123/62 98
10/26/25 07:45 10/26/25 07:45 10/26/25 07:45 10/26/25 07:45 10/26/25 08:47
Lab Results
10/26/25 05:58
10/26/25 05:57
Calcium 7.7 mg/dl (8.4-10.2) L 10/26/25 05:57
Phosphorus 3.0 mg/dl (2.5-4.5) 10/25/25 08:34
Magnesium 1.7 mg/dl (1.6-2.3) 10/25/25 08:34
Total Bilirubin 0.2 mg/dl (0.2-1.3) 10/26/25 05:57
AST 23 U/L (14-36) 10/26/25 05:57
ALT 32 U/L (0-35) 10/26/25 05:57
Alkaline Phosphatase 84 U/L (38-126) 10/26/25 05:57
Total Protein 4.4 g/dl (6.3-8.2) L 10/26/25 05:57
Albumin 2.1 g/dl (3.5-5.0) L 10/26/25 05:57
Physical Exam
-
GENERAL/NEURO: Awake, Alert, no distress
CHEST: Unlabored breathing on RA
ABDOMEN: Soft, Non-Tender, Non-Distended ostomy is pink patent and productive
Patient has a long catheter: No
Patient has a central line: No
--- NOTE | 2025-10-26 13:48 | W.PN.ONC2 ---
Today's Communication / Plan
-
.
Impression
Impression
Non-small cell lung CA, stage III, recently started chemo/RT s/p C1 Carbo/Alimta 10/14
Perforated diverticulitis now s/p resection and ostomy placement
Anemia
Thrombocytopenia, HIT KLARISSA negative
Plan
Plan
Suspect cytopenias are chemo-related given time course since treatment. Not neutropenic. Platelets improved to 46,000 today
Can resume radiation as outpt but will need some time for diverticulitis to improve before resuming chemo.
Subjective/Objective
Subjective
denies bleeding
Vital Signs:
Vital Signs
Temp Pulse Resp BP Pulse Ox
98.0 F 82 16 123/62 98
10/26/25 07:45 10/26/25 07:45 10/26/25 07:45 10/26/25 07:45 10/26/25 08:47
Lab Results:
Laboratory Data
WBC 3.8 10^3/uL (4.8-10.8) L 10/26/25 05:58
Hgb 8.4 g/dL (12.0-16.0) L 10/26/25 05:58
Plt Count 46 10^3/uL (130-400) L D 10/26/25 05:58
PT 17.4 Sec (11.4-14.6) H 10/18/25 03:24
INR 1.41 10/18/25 03:24
APTT 24.4 Sec (23.4-35.0) 10/18/25 03:24
eGFR 49.86 10/26/25 05:57
Physical Exam
HEENT: No Jaundice
Pulmonary: Other (unlabored)
GI: Other (ostomy)
Extremities: Pulses Present
Orders
Orders
Orders From Last 24 Hours
10/26/25 05:57
Fibrinogen IN AM
[2025-10-26 15:25] VITALS: BP 131/62
[2025-10-26] MEDS: TYLENOL PO (21:04)
[2025-10-26] MEDS: ZEBETA 10 MG PO (21:07)
[2025-10-26] MEDS: DESYREL 100 MG PO (21:07)
[2025-10-26 23:00] VITALS: BP 128/68
[2025-10-26] MEDS: MELATONIN 3 MG PO (23:25)
[2025-10-27] MEDS: TYLENOL PO ×2 (01:18→12:00)
[2025-10-27] MEDS: ROXICODONE 5 MG PO (04:06)
[2025-10-27] MEDS: TYLENOL 650 MG PO ×3 (04:06→16:24)
[2025-10-27 07:05] VITALS: BP 98/63
[2025-10-27 08:11] LABS: Hematocrit 26.2 % (37.0-47.0); Hemoglobin 8.5 g/dL (12.0-16.0); Mean Corp Hgb Conc. 32.4 g/dL (33.0-37.0); Mean Corpuscular Volume 87.0 fL (81.0-99.0); Nucleated Red Blood Cells % 0 %; Platelet Count 78 10^3/uL (130-400); Red Cell Dist. Width 13.9 % (11.5-14.5)
[2025-10-27] MEDS: MYCOSTATIN ORAL SUSPENSION 5 ML PO ×2 (08:59→14:10)
[2025-10-27] MEDS: CRESTOR 5 MG PO (09:00)
[2025-10-27] MEDS: PROTONIX 40 MG PO (09:00)
--- NOTE | 2025-10-27 09:13 | W.PN.GS2 ---
Today's Communication / Plan
-
Dispo planning
Assessment / Plan
-
85 yo female with h/o lung ca on chemo (LD 10/12/25) and XRT presenting with perforated sigmoid diverticulitis now POD #10 Baylee's procedure
Plan:
Okay to DC home today on a low residue diet.
Needs stoma teaching and VNA set up for home.
No need for antibiotics.
Can send home with some tramadol.
Discharge instructions updated.
Patient and daughter agreeable to plan of care above, I will see them in the office in 2 weeks for follow-up.
Time Spent
Total Time Spent with Patient (in minutes): 20
Subjective Data
-
Date of Service: October 27, 2025
Interval Events:
No acute events overnight. Slept well. Pain Controlled. Denies Nausea/Vomiting, +bowel function. Tolerating diet.
Objective Data
-
Intake and Output
10/26/25 10/27/25 10/28/25
06:59 06:59 06:59
Intake Total 480 / 480 720 / 720
Output Total 50 / 50
Balance 430 / 430 720 / 720
Intake:
Oral fluids 480 / 480 720 / 720
Output:
Liquid stool amount 50 / 50
Colostomy 50 / 50
Other:
Number of approximated SMALL 1 6
amounts of urine
Number of approximated MODERATE 1 1
amounts of urine
Number of approximated LARGE 1
amounts of urine
Vital Signs
Temp Pulse Resp BP Pulse Ox
98.3 F 82 15 98/63 96
10/27/25 07:05 10/27/25 07:05 10/27/25 07:05 10/27/25 07:05 10/27/25 07:05
Lab Results
10/27/25 06:34
10/26/25 05:57
Calcium 7.7 mg/dl (8.4-10.2) L 10/26/25 05:57
Phosphorus 3.0 mg/dl (2.5-4.5) 10/25/25 08:34
Magnesium 1.7 mg/dl (1.6-2.3) 10/25/25 08:34
Total Bilirubin 0.2 mg/dl (0.2-1.3) 10/26/25 05:57
AST 23 U/L (14-36) 10/26/25 05:57
ALT 32 U/L (0-35) 10/26/25 05:57
Alkaline Phosphatase 84 U/L (38-126) 10/26/25 05:57
Total Protein 4.4 g/dl (6.3-8.2) L 10/26/25 05:57
Albumin 2.1 g/dl (3.5-5.0) L 10/26/25 05:57
Physical Exam
-
GENERAL/NEURO: Awake, Alert, no distress
CHEST: Unlabored breathing on RA
ABDOMEN: Soft, Non-Tender, Non-Distended, ostomy pink patent and productive
Patient has a long catheter: No
Patient has a central line: No
--- NOTE | 2025-10-27 09:14 | W.PN.ONC2 ---
Today's Communication / Plan
-
Reviewed cancer treatment plan postdischarge with her and her daughter.
From my perspective she is cleared for discharge once comfortable with ostomy management.
Impression
Impression
Non-small cell lung CA, stage III, recently started chemo/RT s/p C1 Carbo/Alimta 10/14
Perforated diverticulitis now s/p resection and ostomy placement
Anemia
Thrombocytopenia, HIT KLARISSA negative
Plan
Plan
Suspect cytopenias are chemo-related given time course since treatment. Not neutropenic. Platelets improved to 78,000 today and Hgb stable in the mid .
Can resume radiation as outpt but will need some time for diverticulitis to improve before resuming chemo.
Subjective/Objective
Chief Complaint
ACS Heme Onc
Subjective
Main issue is management of colostomy bag. She is having difficulty and that is causing both her and her daughter much anxiety. They also are questioning what point she will be resuming radiation and chemotherapy. She will be discharged home as
she does not qualify for acute rehab. Discussed radiation can start pretty shortly after she is discharged but need to delay chemotherapy until approximately 3 weeks post op
Vital Signs:
Vital Signs
Temp Pulse Resp BP Pulse Ox
98.3 F 82 15 98/63 96
10/27/25 07:05 10/27/25 07:05 10/27/25 07:05 10/27/25 07:05 10/27/25 07:05
Lab Results:
Laboratory Data
WBC 3.5 10^3/uL (4.8-10.8) L 10/27/25 06:34
Hgb 8.5 g/dL (12.0-16.0) L 10/27/25 06:34
Plt Count 78 10^3/uL (130-400) L D 10/27/25 06:34
PT 17.4 Sec (11.4-14.6) H 10/18/25 03:24
INR 1.41 10/18/25 03:24
APTT 24.4 Sec (23.4-35.0) 10/18/25 03:24
eGFR 49.86 10/26/25 05:57
Physical Exam
Cardiology: S1 and S2
Pulmonary: Clear
GI: Soft
--- NOTE | 2025-10-27 09:51 | WOUNDNOTE ---
WO RN note: Stoma pink and flush. Peristomal skin intact, minimal red ecchymotic area at 1 o'clock peristomally suspect bruise from surgery. Reinstructed patient and DIL [facility] appliance change using [employer] wafer # [id number], Alex seal and [employer]
pouch # [id number]. More ostomy supplies given. [facility] stated they received the Maurilio ostomy secure starter kit. Instructed how to order supplies. Plan is SNF rehab vs home with VN. Sacral skin looks the same, intact. Skin on heels intact. Patient
stated she doesn't like the silicone border foam on her sacrum. Instructed patient to take home air chair cushion and ostomy supplies when discharged. Next appliance due Saturday or Saturday. Nursing can assist patient with appliance changes.
--- NOTE | 2025-10-27 10:26 | W.PN.HOSP.TC ---
Today's Communication/Plan
-
pending STR
cont ostomy care teaching
Assessment / Plan
Assessment / Plan
85yo F with PMHX of Lung CA, HLD, CKD stage 3 came with abdominal pain, CT found signs of diverticulitis with perforation, had surgery with periOP findings of intraperitoneal purulence, Baylee done on 10/18/25 with colostomy. Patient improved on
Abx abnd complated 7 days course as indicated by GEnSx and as per recommendations from Up-To-Date since the source control was achieved. Patient completed chemo-RT on 10/12/25. In hospital developed bicytopenia that technical service engineer contributed to recent
chemo. Tolerating food well, platelet count started to improve. MEdcially stable for d/c, however limited capacity for stoma care at this time, so will need STR, if not available - family will have to find their means for home care. Medically stable
for d/c
A/P:
#Sepsis on admission ([facility]) 2/2 Acute complicated diverticulitis with perforation and peritonitis
Completed Zosyn 7 days
PeriOP Cx unfortunately were not sent
Bcx NTD
No fevers
Leukocytosis resolved. Off abx sinc e 10/25/25
s/p Baylee, ostomy functioning, advanced diet
#SKI on CKD stage 3
resolved
#Anemia
#thrombocytopenia
most likely chemo-induced
HIT Ab neg
Hematology advised monitoring and transfusion as needed
#Hypokalemia
#Hypomagnesemia
#Hypophosphatemia
#Mild hyponatremia
replete and follow
#Thrush
Nistatin
#Essential HTN
#ASCVD
#Lung CA
#Insomnia
#Hx of carotid stenosis s/p R CEA
#GERD
#Osteoporosis
cont to follow with established specialists
cont home meds
DVT ppx on SCDs (2/2 thrombocytopenia)
Full code
I have spent at least 58min reviewign chart, test results, communication with consultants and providing direct patient care
Anticipated Discharge: Within 24 hours
Subjective/Interval History
-
Date of Service: October 27, 2025
Objective Data
-
Labs:
Laboratory Results
10/27/25
06:34
WBC 3.5 L
Hgb 8.5 L
Hct 26.2 L
Plt Count 78 L D
Vital Signs:
Vital Signs
Temp Pulse Resp BP Pulse Ox
98.3 F 82 15 98/63 96
10/27/25 07:05 10/27/25 07:05 10/27/25 07:05 10/27/25 07:05 10/27/25 07:05
I&O
10/26/25 10/27/25 10/28/25
06:59 06:59 06:59
Intake Total 480 / 480 720 / 720
Output Total 50 / 50 100 / 100
Balance 430 / 430 720 / 720 -100 / -100
Review of Systems
-
History Source: Patient
All other systems: Reviewed and negative
Physical Exam
-
General: Comfortable
HEENT: Normocephalic
Respiratory: Clear to Auscultation
GI: Soft and Ostomy
Genito-urinary: No Costovertebral Tender
Musculoskeletal: No Clubbing, No Cyanosis and No Edema
Psych: Calm
[2025-10-27 10:33] VITALS: BP 140/51
--- NOTE | 2025-10-27 11:01 | CM ---
Addendum entered by Maria Teresa Bran 10/27/25 15:02:
Patient has been approved for skilled 6 days skilled, daughter to transport.
Plan; Patient to transfer to [facility] skilled today.
[facility]
Report [phone]

Addendum entered by Maria Teresa Bran 10/27/25 14:01:
Peer to peer requested by insurance, deadline is Saturday 9am, per Gracy at [facility], , option 5.
Addendum entered by Maria Teresa Bran 10/27/25 13:24:
Per Marge Kerr at [facility] admissions they can accept patient if approved, back up plan is home with [facility].
Original Note:
product design manager reviewed patient's chart and Auth is still pending, patient is ambulating 150 feet supervision and per nursing patient did well with teaching today. product design manager reached out to patient's daughter Monse and plan is still for skilled
placement at [facility]. Call placed to insurance and Auth is still pending.
Plan: Skilled placement at [facility] pending Auth.
[2025-10-27] MEDS: COZAAR 50 MG PO (11:23)
[2025-10-27] MEDS: FOLVITE 1 MG PO (11:23)
[2025-10-27] MEDS: NORVASC 5 MG PO (11:23)
[2025-10-27 13:54] VITALS: BP 134/56; PULSE 77
--- NOTE | 2025-10-27 14:56 | W.DCSUMMARY ---
Discharge Summary
Discharge Data
Date of Admission: 10/17/25
Date of Discharge: 10/27/25
-
Pending Results: No
Hospital Course
85yo F with PMHX of Lung CA, HLD, CKD stage 3 came with abdominal pain, CT found signs of diverticulitis with perforation, had surgery with periOP findings of intraperitoneal purulence, Baylee done on 10/18/25 with colostomy. Patient improved on
Abx abnd complated 7 days course as indicated by [facility] and as per recommendations from Up-To-Date since the source control was achieved. Patient completed chemo-RT on 10/12/25. 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
chemo. Tolerating food well, platelet count started to improve. MEdcially stable for d/c, however limited capacity for stoma care at this time, so will need STR, if not available - family will have to find their means for home care. Medically stable
for d/c
I have spent at least 58min reviewing chart, test results, communication with consultants and providing direct patient care
Patient was managed for:
#Sepsis on admission ([facility]) 2/2 Acute complicated diverticulitis with perforation and peritonitis
#SKI on CKD stage 3
#Anemia
#thrombocytopenia
#Hypokalemia
#Hypomagnesemia
#Hypophosphatemia
#Mild hyponatremia
#Thrush
#Essential HTN
#ASCVD
#Lung CA
#Insomnia
#Hx of carotid stenosis s/p R CEA
#GERD
#Osteoporosis
Discharge Plan
-
Patient Disposition: Home (Routine Discharge)
Discharge Diagnosis/Procedures: Perforated purulent diverticulitis
Condition: Good
Diet: Low Fiber
Activity: No strenuous activity
Additional Activity: Do not lift over 15 pounds for the next 4 to 6 weeks
Bathing Restrictions: OK to Shower
Wound Care: Okay to shower and gently wash incision with soap and water. Cover incision with a dry gauze dressing and change daily if drainage is present. Connor will be removed at your postoperative appointment 2 to 3 weeks after surgery
Activity Restrictions/Additional Instructions:
Colostomy: Change appliance q 3-4 days or if leakage.
[place] wafer # [id number], Alex seal, [place]ilio pouch # [id number]. [place] ostomy belt #[id number] if needed.
Pressure redistributing chair cushion (i.e. Air chair cushion).
Call supply [employer] (list in folder provided) for monthly Ostomy supplies after discharge (ask VN to order supplies while on service).
Follow up with surgeon.
Call [facility] RN nurse for ostomy pouching concerns or leakage problems [phone] or [phone] or [phone].
Colon and Rectal Surgery Patient Discharge Instructions
Activity level: Avoid heavy lifting for the next 4 weeks or until cleared to do so at follow-up appointment. To expound on this, no straining, lifting, pushing, pulling greater than 15 lbs during this time frame. Do not engage in any activities
that would engage your core/abdominal muscles. No running, jumping, etc. Otherwise activity as tolerated by comfort level. It is OK to walk, and you should be encouraged to walk frequently.
Diet:
GI Soft/Low residue
This diet is soft in texture, low in fiber, and easy to digest. Avoid foods such as fruits, vegetables and bread. As a rule of thumb if you can run a fork through your food easily, it is ok to eat. The goal is to decrease nausea, diarrhea, and gas
in the bowel that may cause abdominal pain and discomfort. This diet is often used after abdominal surgery or as a transitional diet after gastroenteritis, diverticulitis or inflammatory bowel flares. After about 2 weeks, you can transition to a
regular diet
Guidelines when eating
� Avoid any food that you cannot tolerate or that causes gas, bloating, or stomach pain.
� Make time for your meals. Do not eat while you are in a hurry. Cut your food into small pieces. Chew each bite to a mashed potato consistency. Do not eat when you cannot concentrate on chewing well.
� Drink at least 6-8 cups of fluid per day. Fluids include: water, coffee, tea, juice, milk, popsicles, soups, gelatin, pudding, ice cream, sherbet, and yogurt. In addition, choose caffeine-free beverages more often, especially if you are having
diarrhea or heartburn.
� A daily multivitamin may be recommended if diet is limited in amounts or variety of foods. Do not take any herbal supplements without first checking with your doctor.
Sample Meal Plan:
� Breakfast: Cereal, Eggs, Bananas, Coffee, White toast
� Lunch: Chicken little soup, [place] sandwich, Steamed carrots
� Dinner: White rice, [place] or chicken breast, Green beans
Bowel Medications: You should try to avoid being constipated for the next 4 weeks. If you find that you do not pass any stool for 48 hours, you should try over the counter options first for management of constipation - use miralax one to two times a
day. If this does not work, try adding milk of magnesia. You will use different medications and find the right regimen that works for you.
Driving: No driving while still taking opioid pain medications (wait at least 6-8 hours since last dose). No driving if you are still sore from surgery as it may limit your ability to react quickly if necessary.
Shower/Bath: You may shower and get incision(s) wet. Pat dry immediately following. Do not scrub them vigorously for the next 2-3 weeks. Do not soak incision(s) for the next 2 weeks (i.e. soaking in bath or swimming) as this may promote a wound
infection.
Wound Care: Remove gauze dressing if applied over wound. Wash incision with soap and water, pat dry, and leave open to air. You may cover with gauze as needed to prevent incision rubbing on clothes or for any seepage. If you have skin connor or
sutures please call the office number below to schedule a follow-up appointment in 2 weeks.
Pain Medication: Tylenol should be used as primary [id number]-[id number] pain reliever; 650mg every 6 hours as needed. Do not exceed 3000mg in 24 hours. Ibuprofen may also be used and dosed at 600mg every 6 hours as well and should be taken with food.
Alternate these two medications every three hours around the clock. ex. Tylenol 9am, Ibuprofen 12-noon, Tylenol 3pm, Ibuprofen 6pm, etc. Ibuprofen should only be used for a maximum of 2 weeks post-operatively. In addition to these medications,
non-opioid therapies and non-pharmacologic modalities such as heating pad, ice, and activity modification are recommended as appropriate for adjunct treatment of your pain.
For break through pain management, you are also being prescribed a prescription opioid for the treatment of acute post-operative pain related to surgery. You have been advised to take the smallest dose possible to control your pain and as your pain
improves, please take smaller doses and increase the time between doses.
[Lovenox: You will remain on Lovenox for anticoagulation for a total of 28 days from day of surgery. Please refer to instruction from your nurse for home administration.]
Follow up Appointments/Questions: Please call [phone] to schedule/confirm your follow-up visit time

Call your doctor if:
- You develop any of the following sings or symptoms of infection:
- Redness or swelling of your incision (some mild redness around the incision and the staple sites is normal)
- Drainage or bleeding from your incision
- Fever over 100.5 F
- Increased pain or discomfort at the incision site
- Persistent nausea and/or vomiting or the inability to keep foods or fluids down in a 24 hour period.
- Signs or symptoms of dehydration:
- Dry mouth, lightheadedness
- Dark, concentrated urine, or lack of urine
- Any other concerning sign or symptom such as shortness or breath, chest pain, pain with urination or other signs of urinary tract infection (UTI), or new leg pain/swelling. Also, please call if you develop increasing abdominal pain, increasing
abdominal pain, abdominal firmness, if you stop passing gas or stool for an extended period of time, or bloody bowel movements/vomitting.
Patients with Ileostomy/Colostomy please call your drive away driver or Doctor if:
Change in Color: The stoma should always be pink or red in color. Should the color change to white, blue or black, medical notification is required.
Bleeding: It is common and normal for the stoma to bleed minimally during gentle washing. Blood found in the pouch requires medical notification.
Prolapse: The term implies that the stoma now extends further from the skin surface than it did at discharge from the hospital. An increase of one inch or more requires medical notification. Pain may or may not accompany a prolapse.
Retraction: This term implies that the bowel has slightly fallen back into the abdominal cavity. It may become flush with or recessed below the skin. A good seal with the pouch is difficult.
Herniation: This term implies that the muscular area in which the stoma is sewn has lost its tone and the entire area, including skin and surrounding stoma now protrudes beyond the normal skin surface.
Irritated Skin: Irritated skin can quickly worsen to a difficult to manage situation. Treat irritated skin as you have been taught. If it has not cleared up after one week call your ostomy nurse.
Leaky Pouch: If you are having to change the pouch every other day or more frequently due to leakage it is reasonable for you to give your Ostomy Nurse a call.
Ostomy Resources:
Ostomy.org: [employer] - includes a video 'Living with an Ostomy'
[employer] [place]: www.uoaa.org
[place] [employer]: www.fascrs.org/patients/treatments_and_screening/ostomy/
[employer]: YouTube: 'FACS Ostomy Education'
- Helping your with home care
- Your Ostomy
- Your Operation
- Pouching systems
- Emptying a Pouch
- Changing a Pouch
- Problem Solving
- Emergencies
- Knowledge check
- Ostomy skills (all modules, 27 minutes)
These videos are also on Youtube: search for '[employer] Ostomy Education Skills'
Below is a list of garment websites we other ostomates have found helpful. We do not endorse or have any financial relationship with any of them
- [employer] - custom Message [employer] swimming belts.
- [employer] - 'stylish ostomy underwear and ostomy undergarments'
- [employer] - 'Dont' feel Different . . . FEEL CONFIDENT.'
Referrals:
Yeny Amaya CRNP [Family Provider, Internal Medicine]
Phil Mosher MD [Active, Surgical] - in two to three weeks
Derrick Cano MD [Active, Hematology / Oncology]
Prescriptions:
Continued
bisoprolol fumarate 10 mg tablet
10 mg PO HS
trazodone 100 mg tablet
100 mg PO HS
losartan 50 mg tablet
50 mg PO DAILY
amlodipine 5 mg tablet
5 mg PO DAILY
aspirin 81 mg Tablet,Delayed Release (Dr/Ec)
81 mg PO DAILY
rosuvastatin 5 mg tablet
5 mg PO DAILY
Centrum Silver Women 8 mg iron-400 mcg-50 mcg Tablet
1 tab PO DAILY
acetaminophen 325 mg Tablet
650 mg PO DAILYPRN PRN (Reason: mild pain)
polyvinyl alcohol 1.4 % Drops
1 drp OPHTHALMIC (EYE) DAILY PRN (Reason: dry eyes)
lidocaine-prilocaine 2.5-2.5 % cream
1 applic topical DAILYPRN PRN (Reason: port access)
folic acid 1 mg tablet
1 mg PO DAILY
alum-mag hydroxide-simeth 200-200-20 mg/5 mL Suspension
5 ml PO DAILYPRN PRN (Reason: upset stomach)
fluticasone propionate 50 mcg/actuation [place],Suspension
1 spray INTRANASAL DAILY
docusate sodium 100 mg Tablet
200 mg PO DAILYPRN PRN (Reason: constipation)
Discontinued
biotin 2,500 mcg Capsule
2,500 mcg PO DAILY
Discharge Orders:
Discharge Patient (As Directed); Ordered 10/27/25
Ordered By: Naif Britt
Discharge Date and Time
Print Language: NEPALI
[2025-10-27 15:20] VITALS: BP 176/69
[2025-10-27 16:09] VITALS: BP 166/70
== END 2025-10-27 17:35 | DRG 853 ==
LOC: 2 SOUTH 19:08
PROVIDERS: Hospitalist; Internal Medicine; Nurse Practitioner Acute Care; Nurse Practitioner Family; Nurse Practitioner Gerontology; Registered Nurse; ADMITTING PHYSICIAN Internal Medicine; ATTENDING PHYSICIAN Internal Medicine; CONSULT PHYSICIAN Internal Medicine Hematology & Oncology; CONSULT PHYSICIAN Surgery; EMERGENCY PHYSICIAN Emergency Medicine; FAMILY PHYSICIAN Nurse Practitioner Primary Care; OTHER PHYSICIAN Internal Medicine
PROC: 0DTG0ZZ Resection of Left Large Intestine, Open Approach (ICD-10-PCS; 2025-10-17)
DX: A41.9 Sepsis, unspecified organism (principal); K65.9 Peritonitis, unspecified; K57.20 Diverticulitis of large intestine with perforation and abscess without bleeding; N39.0 Urinary tract infection, site not specified; N17.9 Acute kidney failure, unspecified; E87.1 Hypo-osmolality and hyponatremia; D69.6 Thrombocytopenia, unspecified; E87.6 Hypokalemia; E83.42 Hypomagnesemia; N18.32 Chronic kidney disease, stage 3b; I12.9 Hypertensive chronic kidney disease with stage 1 through stage 4 chronic kidney disease, or unspecified chronic kidney disease; R65.20 Severe sepsis without septic shock; D63.1 Anemia in chronic kidney disease
CPT/HCPCS: 71045; 74177; 80048; 80053; 81003; 81015; 82962; 83605; 83690; 83735; 83880; 84100; 85025; 85027; 85384; 85610; 85730; 86022; 86850; 86900; 86901; 87040; 88307; 93005; 93306; 96365; 96375; 97116; 97162; 97166; 97530; 97535; 99285; Q9967

== ENCOUNTER → 2025-10-29 17:10 | Outpatient (REF) | payer OTHER, MEDICARE, SELFPAY ==
[2025-10-29 17:30] LABS: Urine Character Clear (Clear)
[2025-10-29 17:55] LABS: Urine Red Blood Cell 0-2 /HPF (0-2)
== END ==
LOC: OLABP 17:10
PROVIDERS: ATTENDING PHYSICIAN Family Medicine
DX: N39.0 Urinary tract infection, site not specified (principal)
CPT/HCPCS: 81003; 81015; 87077; 87086

== ENCOUNTER → 2025-11-01 09:09 | Outpatient (REF) | payer OTHER, MEDICARE, SELFPAY ==
[2025-11-01 11:14] LABS: Hematocrit 27.7 % (37.0-47.0); Hemoglobin 8.8 g/dL (12.0-16.0); Mean Corp Hgb Conc. 31.8 g/dL (33.0-37.0); Mean Corpuscular Volume 87.9 fL (81.0-99.0); Nucleated Red Blood Cells % 1.5 %; Platelet Count 591 10^3/uL (130-400); Red Cell Dist. Width 14.0 % (11.5-14.5)
[2025-11-01 11:23] LABS: Blood Urea Nitrogen 10 mg/dl (7-17); Calcium 8.9 mg/dl (8.4-10.2); Carbon Dioxide 28 mmol/L (22-30); Chloride 99 mmol/L (98-107); Glucose 109 mg/dl (70-99); Potassium 4.9 mmol/L (3.5-5.1); Sodium 133 mmol/L (135-145); eGFR 44.91
== END ==
LOC: OLABP 09:09
PROVIDERS: ATTENDING PHYSICIAN Internal Medicine
DX: K57.20 Diverticulitis of large intestine with perforation and abscess without bleeding (principal); A41.9 Sepsis, unspecified organism; C34.91 Malignant neoplasm of unspecified part of right bronchus or lung; E78.2 Mixed hyperlipidemia; I10 Essential (primary) hypertension; I65.29 Occlusion and stenosis of unspecified carotid artery; I70.203 Unspecified atherosclerosis of native arteries of extremities, bilateral legs; K21.9 Gastro-esophageal reflux disease without esophagitis; M85.80 Other specified disorders of bone density and structure, unspecified site; N18.32 Chronic kidney disease, stage 3b
CPT/HCPCS: 36415; 80048; 85025